=== PATIENT | male | born 1960 | race Two or more races ===

== ENCOUNTER 2017-03-15 13:34 | Observation (INO) | payer OTHER ==
[2017-03-15 13:56] VITALS: BMI 25.7
--- NOTE | 2017-03-15 13:56 | PDOC ---
Attending Attestation - Resident Resident Name: CullenToy vicente - HPI HPI: 03/16/17 09:58 Pt presents to the ED complaining of chest pain after doing cocaine. THe chest pain has been persistent for three weeks but was worse today. - Physicial Exam PE: 03/16/17 09:59 Patient has slow speech secondary to Parkinson's disease. Otherwise exam is normal. - Medical Decision Making 03/16/17 10:00 Pt presents to the ED complaining of cocaine chest pain. Multiple risk factors for cardiac disease. EKG and initial labs within normal limits. Will admit to medicine for rule out ACS.
--- NOTE | 2017-03-15 14:33 | PDOC ---
History of Present Illness - General Chief Complaint: Chest Pain Stated Complaint: CHEST PAIN Time Seen by Provider: 03/15/17 13:53 - History of Present Illness Initial Comments: 03/15/17 14:22 Patient is a 56M with a history of cocaine abuse, HLD, and PTSD here today complaining of chest pain. The pain is located under the sternum and does not radiate anywhere. The pain has been intermittent over the past several weeks, with episodes of pain lasting about a minute happening about 2-3 times per week. The pain is not worse with activity or worse with rest. The pain is not brought on by activity. He endorses diaphoresis with the chest pain. He endorses shortness of breath and headache, but these are unchanged from his baseline. He denies nausea, vomiting, fevers and chills. He says the last time he used cocaine was last night and has been using cocaine everyday for the past two weeks. He says that his mom and dad both had heart disease at a young age. Past History - Past Medical History Allergies/Adverse Reactions: Allergies Allergy/AdvReac Type Severity Reaction Status Date / Time No Known Allergies Allergy Verified 08/30/16 13:25 Home Medications: Ambulatory Orders Docusate Sodium [Colace -] 100 mg PO BID 09/09/14 Omeprazole [Prilosec (RX)] 20 mg PO DAILY 09/09/14 Simvastatin [Zocor -] 40 mg PO HS 09/09/14 Carbidopa/Levodopa [Carbidopa-Levo 10-100 mg Odt] 2 each PO TID 11/19/14 Paroxetine HCl [Paxil] 20 mg PO DAILY 11/19/14 Oxycodone HCl/Acetaminophen [Percocet 5-325 mg Tablet] 1 - 2 tab PO Q6H PRN #12 tab 06/14/15 Oxycodone HCl/Acetaminophen [Percocet 5-325 mg Tablet -] 1 combo PO Q6H PRN #10 tablet 08/06/15 Oxycodone HCl/Acetaminophen [Percocet 5-325 mg Tablet -] 1 - 2 tab PO Q4H PRN # 10 tablet MDD 4 08/30/16 Disorders: Yes (RENAL STONES) Hypercholesterolemia: Yes Psychiatric Problems: Yes (DEPRESSION,PTSD, ANXIETY.) Suicide Attempt (Hx): No - Immunization History Td Vaccination: Yes TDAP Vaccination: Yes Immunization Up to Date: Yes - Psycho/Social/Smoking Cessation Hx Anxiety: Yes Suicidal Ideation: No Smoking History: Never smoked Have you smoked in the past 12 months: Yes Number of Cigarettes Smoked Daily: 5 If you are a former smoker, when did you quit?: 4 YRS AGO Information on smoking cessation initiated: No Hx Alcohol Use: No Drug/Substance Use Hx: No Substance Use Type: None Hx Substance Use Treatment: No *Physical Exam - Vital Signs Last Vital Signs Temp Pulse Resp BP Pulse Ox 98.4 F 73 22 127/87 99 03/15/17 13:46 03/15/17 13:46 03/15/17 13:46 03/15/17 13:46 03/15/17 13:46 - Physical Exam Comments: 03/15/17 17:45 Gen: Well nourished, no acute distress CV: RRR, no murmurs rubs or gallops Lungs: Clear to auscultation bilaterally, normal work of breathing Abd: Soft, nontender, normal bowel sounds Ext: 2+ pulses in both lower extremities Neuro: Finger-roll tremor at rest, mask like face, alert, oriented Heart Score/ECG Review - History History: Moderately suspicious - Electrocardiogram EKG: Normal - Age Age: 45-65 - Risk Factors Risk Factors Heart Score: Yes Hx Hypercholesterolemia, Yes Positive family hx of cardiac disease Based on the list above the patient has:: 1-2 risk factors - Troponin Troponin: </= normal limit - Score Heart Score - Total: 3 #1 ECG reviewed & interpreted by me at: 14:39 03/15/17 14:39 Normal sinus rhythm, normal axis, no ST changes, no t wave inversions, regular ED Treatment Course - LABORATORY CBC & Chemistry Diagram: 03/15/17 15:50 03/15/17 15:50 - ADDITIONAL ORDERS Additional order review: Laboratory Results 03/15/17 03/15/17 15:50 15:50 INR 1.12 Sodium 142 Potassium 3.9 Chloride 105 Carbon Dioxide 29 Anion Gap 8 BUN 16 D Creatinine 1.1 Creat Clearance w eGFR > 60 Random Glucose 94 Calcium 9.2 Total Bilirubin 0.8 D AST 13 L D ALT 23 D Alkaline Phosphatase 135 H D Creatine Kinase 99 Troponin I < 0.02 Total Protein 6.8 Albumin 4.1 03/15/17 15:50 RBC 5.03 MCV 94.8 MCHC 33.3 RDW 13.3 MPV 9.0 Neutrophils % 62.0 Lymphocytes % 25.4 Monocytes % 9.2 Eosinophils % 2.5 D Basophils % 0.9 - RADIOLOGY Radiology Studies Ordered: Category Date Time Status CHEST X-RAY PORTABLE* [RAD] Stat Radiology 03/15/17 14:18 Completed Medical Decision Making - Medical Decision Making 03/15/17 14:40 Patient is a 56M with history of HLD, cocaine abuse, and parkinsons here today complaining of chest pain. Vital signs are normal and stable. Differential includes but is not limited to: unstable angina, ACS, pneumothorax and coronary vasospasm. Story is moderately concerning for heart etiology, age 45-65, and greater than 3 risk factors. Will likely to admit to observation tele. CXR, CMP , CBC, and Troponin ordered. 03/15/17 17:48 Workup negative, medicine consulted for placement into observation. *DC/Admit/Observation/Transfer Diagnosis at time of Disposition: Chest pain Qualifiers: Chest pain type: unspecified Qualified Code(s): R07.9 - Chest pain, unspecified - Discharge Dispostion Condition at time of disposition: Stable Admit: Yes Decision to Admit order Date/Time: Decision to Admit Order Category Date Time Status Decision to Admit to Hospital Routine Admission 03/15/17 17:50 Active - Transfer to Acute Care Facility Accepting Physician:: Elder - Attestations Physician Attestion: 03/15/17 17:49 I, Dr. Toy Huerta, attest that this document has been prepared under my direction and personally reviewed by me in its entirety. I further attest, that it accurately reflects all work, treatment, procedures and medical decision -making performed by me.
[2017-03-15 16:21] LABS: BASOPHIL 0.9 % (0-2.0); EOSINOPHIL 2.5 % (0-4.5); MCH 31.6 pg (25.7-33.7); MCHC 33.3 g/dl (32.0-35.9); MEAN CELL VOLUME 94.8 fl (80-96); PLATELET COUNT 169 K/MM3 (134-434); RDW 13.3 % (11.9-15.9); WHITE BLOOD COUNT 6.4 K/mm3 (4.0-10.0)
[2017-03-15 16:39] LABS: INR 1.12 (0.82-1.09); PROTHROMBIN TIME (PATIENT) 12.4 SEC (9.98-11.88)
[2017-03-15 16:48] LABS: ALBUMIN 4.1 g/dl (3.4-5.0); ANION GAP 8 (8-16); CALCIUM 9.2 mg/dL (8.5-10.1); CO2 29 mmol/L (21-32); CREATININE 1.1 mg/dL (0.7-1.3); GLUCOSE,RANDOM 94 mg/dL (74-106); SGOT/AST 13 U/L (15-37); SGPT/ALT 23 U/L (12-78)
[2017-03-15 16:53] LABS: ALK PHOS 135 U/L (45-117); BILIRUBIN,TOTAL 0.8 mg/dL (0.2-1.0); TOT PROT 6.8 g/dl (6.4-8.2); TROPONIN I < 0.02 ng/ml (0.00-0.05)
--- NOTE | 2017-03-15 18:03 | HP ---
CHIEF COMPLAINT: " my chest hurts" PCP: clinic at [facility] HISTORY OF PRESENT ILLNESS: This is a 56 yo M with PMH of daily crack use (2 gm), parkinsons, HLD, and PTSD , who presents due to chest pain. The pain has been on/off for the past 2 w, lasting 2 min at a time, midsternal, nonradiating, sharp and constant. It has not alleviating or aggravating factors, is not affected by respiration or position change and nonreproducible. He had pain like this one before 2 yrs go. He reports sob with exertion, palpitations and RLE edema but denies cough, f /c, hemoptysis. He reports occasional nausea and a 100 lb weight loss over the past yr associated with increased crack use. He has been smoking crack every day for the past 2 weeks. He reports occasional constipation but denies abd pain , diarrhea, melena, hematochezia, dysuria, weakness, numbness. He reports desire to be admitted to rehab. During ED inspection, chest pain is gone Past History ER course was notable for: (1)labs (2)ekg: negative for ACS or strain (3)CXR unremarkable Recent Travel: denies PAST MEDICAL HISTORY: as above PAST SURGICAL HISTORY: as above Social History: lives at home with Smoking:daily 7 cig/day x 7 yrs Alcohol:denies Drugs: crack daily Family History: mother, father CAD Allergies No Known Allergies Allergy (Verified 08/30/16 13:25) HOME MEDICATIONS: Home Medications Medication Instructions Recorded Docusate Sodium [Colace -] 100 mg PO BID 09/09/14 Omeprazole [Prilosec (RX)] 20 mg PO DAILY 09/09/14 Simvastatin [Zocor -] 40 mg PO HS 09/09/14 Carbidopa/Levodopa [Carbidopa-Levo 2 each PO TID 11/19/14 10-100 mg Odt] Paroxetine HCl [Paxil] 20 mg PO DAILY 11/19/14 Oxycodone HCl/Acetaminophen 1 - 2 tab PO Q6H PRN #12 tab 06/14/15 [Percocet 5-325 mg Tablet] Oxycodone HCl/Acetaminophen 1 combo PO Q6H PRN #10 tablet 08/06/15 [Percocet 5-325 mg Tablet -] Oxycodone HCl/Acetaminophen 1 - 2 tab PO Q4H PRN #10 tablet 08/30/16 [Percocet 5-325 mg Tablet -] MDD 4 REVIEW OF SYSTEMS CONSTITUTIONAL: Absent: fever, chills, HEENT: Absent: rhinorrhea, nasal congestion, throat pain, difficulty swallowing CARDIOVASCULAR: Absent: syncope RESPIRATORY: Absent: cough, shortness of breath, dyspnea with exertion, orthopnea, wheezing, stridor, hemoptysis GASTROINTESTINAL: Absent: abdominal pain, abdominal distension, nausea, vomiting, diarrhea, constipation, melena, hematochezia GENITOURINARY: Absent: dysuria MUSCULOSKELETAL: Absent: back pain, neck pain SKIN: Absent: rash, itching, pallor HEMATOLOGIC/IMMUNOLOGIC: Absent: easy bleeding, easy bruising, frequent infections ENDOCRINE: Absent: unexplained weight gain, unexplained weight loss, heat intolerance, cold intolerance NEUROLOGIC: Absent: headache, focal weakness or paresthesias PSYCHIATRIC: Absent: SI/HI PHYSICAL EXAMINATION Vital Signs - 24 hr 03/15/17 13:46 Temperature 98.4 F Pulse Rate 73 Respiratory 22 Rate Blood Pressure 127/87 O2 Sat by Pulse 99 Oximetry (%) GENERAL: Awake, alert, and fully oriented, in no acute distress. HEAD: Normal with no signs of trauma. EYES: Pupils equal, round and reactive to light, extraocular movements intact, sclera anicteric, conjunctiva clear. No lid lag. EARS, NOSE, THROAT: Ears normal, nares patent, oropharynx clear without exudates. Moist mucous membranes. NECK: supple without JVD. LUNGS: bibasilar crackles HEART: Regular rate and rhythm, normal S1 and S2, grade 2 systolic murmur in mitral area ABDOMEN: Soft, nontender, not distended, normoactive bowel sounds, no guarding, no rebound, no masses. No hepatomegaly or splenomegaly. MUSCULOSKELETAL: No CVA tenderness. UPPER EXTREMITIES: 2+ pulses, warm, well-perfused. No cyanosis. No clubbing. No peripheral edema. LOWER EXTREMITIES: 1+ pulses, warm, well-perfused. No calf tenderness. SUMANTH edema at ankles, nonpitting, mild NEUROLOGICAL: Cranial nerves II-XII intact. slurred speech. 5/5 strength in all extremities, sensation intact, diffuse rigidity and cobwheeling in hands PSYCHIATRIC: Cooperative. Good eye contact. Appropriate mood and affect. SKIN: Warm, dry Laboratory Results - last 24 hr 03/15/17 03/15/17 03/15/17 15:50 15:50 15:50 WBC 6.4 RBC 5.03 Hgb 15.9 Hct 47.7 MCV 94.8 MCH 31.6 MCHC 33.3 RDW 13.3 Plt Count 169 MPV 9.0 Neutrophils % 62.0 Lymphocytes % 25.4 Monocytes % 9.2 Eosinophils % 2.5 D Basophils % 0.9 INR 1.12 Sodium 142 Potassium 3.9 Chloride 105 Carbon Dioxide 29 Anion Gap 8 BUN 16 D Creatinine 1.1 Creat Clearance w eGFR > 60 Random Glucose 94 Calcium 9.2 Total Bilirubin 0.8 D AST 13 L D ALT 23 D Alkaline Phosphatase 135 H D Creatine Kinase 99 Troponin I < 0.02 Total Protein 6.8 Albumin 4.1 ASSESSMENT/PLAN: This is a 56 yo M with PMH of daily crack use (2 gm), parkinsons, HLD, and PTSD , who presents due to chest pain. The pain has been on/off for the past 2 w, lasting 2 min at a time, midsternal, nonradiating, sharp and constant. Chest pain -likely printzmetal angina in setting of crack use -r/o cad -trop negative, repeat -EKG unremarkable for acs or strain -start daily asa -give lipitor 80 once -tele monitoring -IVF hydration -Cardio consult -TTE -tfts, lipid profile, a1c HLD -lipitir 20 hs Parkinsons -carbidopa/levodopa CHronic back pain -oxicodone, tylenol FEN IVF lytes stable Na controlled diet scd, ppi Dispo: obs tele Problem List - Problem (1) Chest pain Code(s): R07.9 - CHEST PAIN, UNSPECIFIED Qualifiers: Chest pain type: unspecified Qualified Code(s): R07.9 - Chest pain, unspecified (2) Chronic lower back pain Code(s): M54.5 - LOW BACK PAIN G89.29 - OTHER CHRONIC PAIN Qualifiers: Back pain laterality: unspecified Sciatica presence: with sciatica Sciatica laterality: bilateral sciatica Qualified Code(s): M54.41 - Lumbago with sciatica, right side; G89.29 - Other chronic pain (3) Chronic pain Code(s): G89.29 - OTHER CHRONIC PAIN Qualifiers: Chronic pain type: other chronic pain Qualified Code(s): G89.29 - Other chronic pain (4) Parkinson disease Code(s): G20 - PARKINSON'S DISEASE (5) Crack cocaine use Code(s): F14.90 - COCAINE USE, UNSPECIFIED, UNCOMPLICATED (6) PTSD (post-traumatic stress disorder) Code(s): F43.10 - POST-TRAUMATIC STRESS DISORDER, UNSPECIFIED Visit type - Emergency Visit Emergency Visit: Yes Care time: The patient presented to the Emergency Department on the above date and was hospitalized for further evaluation of their emergent condition. - New Patient This patient is new to me today: Yes Date on this admission: 03/15/17 - Critical Care Critical Care patient: No
[2017-03-15] MEDS: SODIUM CHLORIDE 1,000 ML IV SCH (18:16)
--- NOTE | 2017-03-15 18:31 | PN ---
Teaching Attending Note Name of Resident: Gita Jimenez ATTENDING PHYSICIAN STATEMENT I saw and evaluated the patient. I reviewed the resident's note and discussed the case with the resident. I agree with the resident's findings and plan as documented. SUBJECTIVE: chest pain x 1 day 56 year old male c/o mid sternal chest pain that started 2 days ago. Mid sternal , constant , non radiating , 5/10 that progressed to 8/10 today . No dizziness no syncope no orthopnea. Reported cocaine use , approximately 2 grams this am . PMH Parkinsons early onset PTSD HTN Home Medication List Medication Instructions Recorded Confirmed Type Docusate Sodium [Colace -] 100 mg PO BID 09/09/14 03/15/17 History Omeprazole [Prilosec (RX)] 20 mg PO DAILY 09/09/14 03/15/17 History Simvastatin [Zocor -] 40 mg PO HS 09/09/14 03/15/17 History Carbidopa/Levodopa [Carbidopa-Levo 2 each PO TID 11/19/14 03/15/17 History 10-100 mg Odt] Paroxetine HCl [Paxil] 20 mg PO DAILY 11/19/14 03/15/17 History Active Medications Generic Name Dose Route Start Last Admin Trade Name Freq PRN Reason Stop Dose Admin Sodium Chloride 1,000 mls @ 83 mls/hr 03/15/17 18:15 03/15/17 18:16 Normal Saline - IV 83 mls/hr ASDIR ABISAI Administration OBJECTIVE: Vital Signs Temperature 99.2 F 03/15/17 18:24 Pulse Rate 76 03/15/17 18:24 Respiratory Rate 22 03/15/17 18:24 Blood Pressure 113/62 03/15/17 18:24 O2 Sat by Pulse Oximetry (%) 98 03/15/17 18:24 HEENT -perrla dry mucous membranes CV: RRR, no murmurs rubs or gallops Lungs: Clear to auscultation bilaterally, normal work of breathing Abd: Soft, nontender, normal bowel sounds Ext: 2+ pulses in both lower extremities, trace pedal edema Neuro: soft speech , impaired voice muscle rigidity and mild tremor CBC, BMP 03/15/17 15:50 03/15/17 15:50 EKG - NSR , L axis ASSESSMENT AND PLAN: 1. Chest pain , cocaine induced - no acute EKG changes , pain now resolved - troponins x 3 - ASA - no bbl - BP control - hydrate - xanax low dose 2. Parkinsons- early onset - PT/OT eval - continue home meds 3. DVT ppx Lovenox sc 4 . HTN - controlled - c/w home meds
[2017-03-15] MEDS ORDERED: ASPIRIN 81 MG CHEWABLE TABLETS PO ONE (19:00)
[2017-03-15] MEDS ORDERED: ATORVASTATIN CA 80 MG TABLET (FP) PO ONE (19:01)
[2017-03-15] MEDS ORDERED: ATORVASTATIN CA 80 MG TABLET (FP) ONE (19:21)
[2017-03-15] MEDS ORDERED: ASPIRIN 81 MG CHEWABLE TABLETS ONE (19:21)
[2017-03-15 19:58] LABS: URINE MARIJUANA THC NEGATIVE ng/ml (CUTOFF=50)
[2017-03-15] MEDS ORDERED: LEVODOPA PO SCH (22:00)
[2017-03-15] MEDS ORDERED: CARBIDOPA PO SCH (22:00)
[2017-03-15] MEDS ORDERED: [UNRECOGNIZED DRUG - OTHER] PO SCH (22:00)
[2017-03-16] MEDS: DOCUSATE SODIUM 100 MG CAPSULE (FP) PO SCH ×3 (00:49→21:23)
[2017-03-16 06:56] LABS: MCH 32.3 pg (25.7-33.7); MCHC 34.3 g/dl (32.0-35.9); MEAN CELL VOLUME 94.1 fl (80-96); MEAN PLT VOLUME 8.8 fl (7.5-11.1); PLATELET COUNT 148 K/MM3 (134-434); RDW 13.3 % (11.9-15.9); WHITE BLOOD COUNT 4.8 K/mm3 (4.0-10.0)
[2017-03-16 07:23] LABS: ANION GAP 7 (8-16); CALCIUM 8.1 mg/dL (8.5-10.1); CO2 27 mmol/L (21-32); CREATININE 0.9 mg/dL (0.7-1.3); GLUCOSE,RANDOM 96 mg/dL (74-106); MAGNESIUM 1.9 mg/dL (1.8-2.4); PHOSPHOROUS 2.5 mg/dL (2.5-4.9)
[2017-03-16 07:57] LABS: CHOLESTEROL 113 mg/dL (50-200); LDL CHOLESTEROL (ONLY SJRH) 61 mg/dL (5-100)
--- NOTE | 2017-03-16 09:04 | PN ---
Progress Note (short form) - Note Progress Note: Chief Complaint: Events noted, notes reviewed, chest pain syndrome, cocaine abuse History of Present Illness: Seen and examined on telemetry. Full consult dictated - Current Medication List Current Medications Acetaminophen (Tylenol -) 650 mg PO Q4H PRN PRN Reason: FEVER OR PAIN Aspirin (Asa -) 81 mg PO DAILY [facility] Carbidopa/Levodopa (Sinemet *Cr* 25/100 -) 2 combo PO TID [facility] Last Admin: 03/16/17 05:42 Dose: 2 combo Docusate Sodium (Colace -) 100 mg PO BID [facility] Last Admin: 03/16/17 00:49 Dose: 100 mg Sodium Chloride (Normal Saline -) 1,000 mls @ 83 mls/hr IV ASDIR [facility] Last Admin: 03/15/17 18:16 Dose: 83 mls/hr Oxycodone HCl (Roxicodone -) 5 mg PO Q4H PRN PRN Reason: MODERATE PAIN Pantoprazole Sodium (Protonix -) 20 mg PO [facility] Paroxetine HCl (Paxil -) 20 mg PO DAILY [facility] Review of Systems Cardiovascular: As noted above Respiratory: denies: Cough or Sputum Production Gastrointestinal: denies: Nausea, Vomiting, Diarrhea, Constipation or Abdominal Discomfort Musculoskeletal: Parkinson's disease Endocrine: No Symptoms Reported - Objective Vital Signs: Last Vital Signs Temp Pulse Resp BP Pulse Ox 98.5 F 57 L 20 100/61 98 03/16/17 05:22 03/16/17 05:22 03/16/17 05:22 03/16/17 05:22 03/16/17 02:57 Constitutional: No Distress, Calm Neck: Supple Negative JVD No Bruit Cardiovascular: S1 S2 Regular Rate and Rhythm No Murmurs Clicks or Gallops Respiratory: Clear to A&P Bilaterally Gastrointestinal: Soft Benign Normal Bowel Sounds Ext: No Edema Intact Distal Pulses Labs: Troponin, BNP 03/15/17 03/15/17 15:50 19:33 Troponin I < 0.02 < 0.02 CBC, BMP 03/16/17 05:35 03/16/17 05:35 Hepatic Panel Total Bilirubin 0.8 mg/dL (0.2-1.0) D 03/15/17 15:50 AST 13 U/L (15-37) L D 03/15/17 15:50 ALT 23 U/L (12-78) D 03/15/17 15:50 Alkaline Phosphatase 135 U/L (45-117) H D 03/15/17 15:50 Albumin 4.1 g/dl (3.4-5.0) 03/15/17 15:50 INR, PTT INR 1.12 (0.82-1.09) 03/15/17 15:50 Assessment/Plan ASSESSMENT: 1. Chest pain syndrome clinical presentation suggestive of CAD angina pectoris in patient with intermediate to high risk of CAD 2. HTN 3. Hypercholesterolemia 4. Tobbaco abuse 5. Cocaine abuse 6. Parkinson's disease 7. History of BPH 8. History of PTSD PLAN: 1. Continue ASA 2. Add Norvasc with caution, hemodynamics permitting 3. Add Ranexa 4. Add Lipitor therapy 5. Patient was strongly counselled Tobacco abuse and Cocaine abuse cessation 6. Echocardiography for evaluation of LV/RV function and valvular function 7. Pharmacologic MPI study for evaluation of the above noted presentation Clemente Roca MD
[2017-03-16] MEDS: PARoxetine HCL 20 MG TABLET (FP) PO SCH (09:27)
[2017-03-16] MEDS: ASPIRIN 81 MG CHEWABLE TABLETS PO SCH (09:27)
[2017-03-16] MEDS: amLODIPine BESYLATE 2.5 MG TABLET (FP) PO SCH (09:27)
[2017-03-16] MEDS: RANOLAZINE E.R. 500 MG TABLET (FP) PO SCH ×2 (09:27→21:23)
--- NOTE | 2017-03-16 09:33 | PN ---
Physical Exam: SUBJECTIVE: Patient seen and examined. He continues to have chest pain. OBJECTIVE: Vital Signs Period Temp Pulse Resp BP Sys/Fisher Pulse Ox Last 24 Hr 98.5 F-99.2 F 57-76 20-22 100-113/61-73 98-98 GENERAL: The patient is awake, alert, and fully oriented, in no acute distress. NECK: Supple. LUNGS: Breath sounds equal, clear to auscultation bilaterally, no wheezes, no crackles, no accessory muscle use. HEART: Regular rate and rhythm, S1, S2 without murmur, rub or gallop. ABDOMEN: Soft, nontender, nondistended, normoactive bowel sounds, no guarding, no rebound, no hepatosplenomegaly, no masses. EXTREMITIES: 2+ pulses, warm, well-perfused, no edema. Laboratory Results - last 24 hr 03/15/17 03/15/17 03/16/17 19:33 19:33 05:35 WBC 4.8 RBC 4.44 Hgb 14.3 D Hct 41.8 MCV 94.1 MCH 32.3 MCHC 34.3 RDW 13.3 Plt Count 148 MPV 8.8 Sodium Potassium Chloride Carbon Dioxide Anion Gap BUN Creatinine Random Glucose Calcium Phosphorus Magnesium Troponin I < 0.02 Triglycerides Cholesterol Total LDL Cholesterol HDL Cholesterol Opiates Screen Negative Methadone Screen Negative Barbiturate Screen Negative Phencyclidine Screen Negative Ur Amphetamines Screen Negative MDMA (Ecstasy) Screen Negative Benzodiazepines Screen Negative Cocaine Screen Positive U Marijuana (THC) Screen Negative 03/16/17 03/16/17 05:35 05:35 WBC RBC Hgb Hct MCV MCH MCHC RDW Plt Count MPV Sodium 145 Potassium 4.0 Chloride 111 H Carbon Dioxide 27 Anion Gap 7 L BUN 16 Creatinine 0.9 Random Glucose 96 Calcium 8.1 L Phosphorus 2.5 Magnesium 1.9 Troponin I Triglycerides 46 Cancelled Cholesterol 113 Cancelled Total LDL Cholesterol 61 Cancelled HDL Cholesterol 43 Cancelled Opiates Screen Methadone Screen Barbiturate Screen Phencyclidine Screen Ur Amphetamines Screen MDMA (Ecstasy) Screen Benzodiazepines Screen Cocaine Screen U Marijuana (THC) Screen Active Medications Generic Name Dose Route Start Last Admin Trade Name Freq PRN Reason Stop Dose Admin Acetaminophen 650 mg 03/15/17 18:56 Tylenol - PO Q4H PRN FEVER OR PAIN Amlodipine Besylate 2.5 mg 03/16/17 10:00 03/16/17 09:27 Norvasc - PO 2.5 mg DAILY ABISAI Administration Aspirin 81 mg 03/16/17 10:00 03/16/17 09:27 Asa - PO 81 mg DAILY ABISAI Administration Atorvastatin Calcium 20 mg 03/16/17 22:00 Lipitor - PO HS ABISAI Carbidopa/Levodopa 2 combo 03/15/17 22:00 03/16/17 05:42 Sinemet *Cr* 25/100 - PO 2 combo TID ABISAI Administration Docusate Sodium 100 mg 03/15/17 22:00 03/16/17 09:27 Colace - PO 100 mg BID ABISAI Administration Sodium Chloride 1,000 mls @ 83 mls/hr 03/15/17 18:15 03/15/17 18:16 Normal Saline - IV 83 mls/hr ASDIR ABISAI Administration Oxycodone HCl 5 mg 03/15/17 19:20 Roxicodone - PO Q4H PRN MODERATE PAIN Pantoprazole Sodium 20 mg 03/16/17 22:00 Protonix - PO HS ABISAI Paroxetine HCl 20 mg 03/16/17 10:00 03/16/17 09:27 Paxil - PO 20 mg DAILY ABISAI Administration Ranolazine 500 mg 03/16/17 10:00 03/16/17 09:27 Ranexa - PO 500 mg BID ABISAI Administration ASSESSMENT/PLAN: This is a 56-year-old man with a history of Parkinson's, hyperlipidemia, PTSD, chronic back pain, crack use who presented to the ER with chest pain. 1. Chest pain - Troponin negative x 2 - Continue telemetry monitoring - Continue aspirin, Lipitor - Not on beta-maki secondary to bradycardia and crack use - Cardiology consult appreciated - Norvasc, Ranexa added - Echocardiogram, stress test 2. Hyperlipidemia - Continue Lipitor 3. Parkinson disease - Continue Sinemet 4. Chronic back pain - Continue oxycodone as needed 5. Nicotine dependence 6. Cocaine abuse Visit type - Emergency Visit Emergency Visit: Yes ED Registration Date: 03/15/17 Care time: The patient presented to the Emergency Department on the above date and was hospitalized for further evaluation of their emergent condition. - New Patient This patient is new to me today: Yes Date on this admission: 03/16/17 - Critical Care Critical Care patient: No - Discharge Referral Referred to [facility] No
[2017-03-16] MEDS ORDERED: PATIENT'S OWN MEDICATION (NON-FORMULARY) (Omeprazole Pediatric Solution 20 MG) PO SCH (10:00)
[2017-03-16 10:42] LABS: THYROID STIMULATING HORMONE 0.23 uIU/ml (0.358-3.74)
[2017-03-16] MEDS: ACETAMINOPHEN 325 MG TABLET (FP) PO PRN ×2 (14:25→23:24)
[2017-03-16] MEDS: oxyCODONE HCL 5 MG TABLET PO PRN ×2 (14:25→23:24)
[2017-03-16] MEDS: SODIUM CHLORIDE 1,000 ML IV SCH (21:22)
[2017-03-16] MEDS: ATORVASTATIN CA 20 MG TABLET (FP) PO SCH (21:23)
[2017-03-16] MEDS: PANTOPRAZOLE 20 MG TABLET (FP) PO SCH (21:23)
[2017-03-17] MEDS: SODIUM CHLORIDE 1,000 ML IV SCH ×2 (03:16→15:26)
[2017-03-17] MEDS: oxyCODONE HCL 5 MG TABLET PO PRN ×3 (06:15→21:26)
[2017-03-17] MEDS: ACETAMINOPHEN 325 MG TABLET (FP) PO PRN ×2 (06:15→11:15)
[2017-03-17 07:12] LABS: BASOPHIL 0.8 % (0-2.0); EOSINOPHIL 3.1 % (0-4.5); MCH 32.3 pg (25.7-33.7); MCHC 34.3 g/dl (32.0-35.9); MEAN CELL VOLUME 94.2 fl (80-96); NEUTROPHILS 58.7 % (42.8-82.8); PLATELET COUNT 150 K/MM3 (134-434); RDW 13.5 % (11.9-15.9); WHITE BLOOD COUNT 5.9 K/mm3 (4.0-10.0)
[2017-03-17 07:30] LABS: ANION GAP 7 (8-16); CALCIUM 8.8 mg/dL (8.5-10.1); CO2 27 mmol/L (21-32); CREATININE 0.9 mg/dL (0.7-1.3); GLUCOSE,RANDOM 85 mg/dL (74-106)
--- NOTE | 2017-03-17 07:53 | PN ---
Progress Note (short form) - Note Progress Note: Chief Complaint: Events noted, notes reviewed, denies any further chest pain, denies any dyspnea History of Present Illness: Seen and examined on telemetry. Events noted, notes reviewed, denies any further chest pain, denies any dyspnea Tolerating therapy Plan to proceed with echocardiography and pharmacologic MPI study in AM for further evaluation - Current Medication List Current Medications Acetaminophen (Tylenol -) 650 mg PO Q4H PRN PRN Reason: FEVER OR PAIN Last Admin: 03/17/17 06:15 Dose: 650 mg Amlodipine Besylate (Norvasc -) 2.5 mg PO DAILY [facility] Last Admin: 03/16/17 09:27 Dose: 2.5 mg Aspirin (Asa -) 81 mg PO DAILY [facility] Last Admin: 03/16/17 09:27 Dose: 81 mg Atorvastatin Calcium (Lipitor -) 20 mg PO [facility] Last Admin: 03/16/17 21:23 Dose: 20 mg Carbidopa/Levodopa (Sinemet *Cr* 25/100 -) 2 combo PO TID [facility] Last Admin: 03/17/17 05:11 Dose: 2 combo Docusate Sodium (Colace -) 100 mg PO BID [facility] Last Admin: 03/16/17 21:23 Dose: 100 mg Sodium Chloride (Normal Saline -) 1,000 mls @ 83 mls/hr IV ASDIR [facility] Last Admin: 03/17/17 03:16 Dose: 83 mls/hr Oxycodone HCl (Roxicodone -) 5 mg PO Q4H PRN PRN Reason: MODERATE PAIN Last Admin: 03/17/17 06:15 Dose: 5 mg Pantoprazole Sodium (Protonix -) 20 mg PO [facility] Last Admin: 03/16/17 21:23 Dose: 20 mg Paroxetine HCl (Paxil -) 20 mg PO DAILY [facility] Last Admin: 03/16/17 09:27 Dose: 20 mg Ranolazine (Ranexa -) 500 mg PO BID [facility] Last Admin: 03/16/17 21:23 Dose: 500 mg Review of Systems Cardiovascular: As noted above Respiratory: denies: Cough or Sputum Production Gastrointestinal: denies: Nausea, Vomiting, Diarrhea, Constipation or Abdominal Discomfort Musculoskeletal: Parkinson's disease Endocrine: No Symptoms Reported - Objective Vital Signs: Last Vital Signs Temp Pulse Resp BP Pulse Ox 98.4 F 64 18 100/60 98 07/16/17 02:00 03/17/17 02:00 03/17/17 02:00 03/17/17 02:00 03/16/17 19:43 Constitutional: No Distress, Calm Neck: Supple Negative JVD No Bruit Cardiovascular: S1 S2 Regular Rate and Rhythm No Murmurs Clicks or Gallops Respiratory: Clear to A&P Bilaterally Gastrointestinal: Soft Benign Normal Bowel Sounds Ext: No Edema Intact Distal Pulses Labs: CBC, BMP 03/17/17 05:35 Hepatic Panel Total Bilirubin 0.8 mg/dL (0.2-1.0) D 03/15/17 15:50 AST 13 U/L (15-37) L D 03/15/17 15:50 ALT 23 U/L (12-78) D 03/15/17 15:50 Alkaline Phosphatase 135 U/L (45-117) H D 03/15/17 15:50 Albumin 4.1 g/dl (3.4-5.0) 03/15/17 15:50 Assessment/Plan ASSESSMENT: 1. Chest pain syndrome with no evidence of ACS, clinical presentation suggestive of CAD angina pectoris in patient with intermediate to high risk of CAD, to be evaluated 2. HTN 3. Hypercholesterolemia 4. Tobbaco abuse 5. Cocaine abuse 6. Parkinson's disease 7. History of BPH 8. History of PTSD PLAN: 1. Continue ASA 2. Continue Norvasc with caution, hemodynamics permitting 3. Continue Ranexa 4. Continue Lipitor therapy 5. Patient was strongly counselled Tobacco abuse and Cocaine abuse cessation 6. As outlined above Echocardiography for evaluation of LV/RV function and valvular function 7. As outlined above Pharmacologic MPI study for evaluation of the above noted presentation Clemente Roca MD
--- NOTE | 2017-03-17 09:08 | PN ---
Physical Exam: SUBJECTIVE: Patient seen and examined. He reports left-sided chest pressure overnight but none this morning OBJECTIVE: Vital Signs Period Temp Pulse Resp BP Sys/Fisher Pulse Ox Last 24 Hr 98 F-98.8 F 57-82 16-20 100-133/60-71 94-98 GENERAL: The patient is awake, alert, and fully oriented, in no acute distress. NECK: Supple. LUNGS: Breath sounds equal, clear to auscultation bilaterally, no wheezes, no crackles, no accessory muscle use. HEART: Regular rate and rhythm, S1, S2 without murmur, rub or gallop. ABDOMEN: Soft, nontender, nondistended, normoactive bowel sounds, no guarding, no rebound, no hepatosplenomegaly, no masses. EXTREMITIES: 2+ pulses, warm, well-perfused, no edema. Laboratory Results - last 24 hr 03/16/17 03/16/17 03/17/17 05:35 06:00 05:35 WBC 5.9 RBC 4.62 Hgb 14.9 Hct 43.5 MCV 94.2 MCH 32.3 MCHC 34.3 RDW 13.5 Plt Count 150 MPV 9.0 Neutrophils % 58.7 Lymphocytes % 29.6 Monocytes % 7.8 Eosinophils % 3.1 Basophils % 0.8 Sodium 145 Potassium 4.0 Chloride 111 H Carbon Dioxide 27 Anion Gap 7 L BUN 16 Creatinine 0.9 Random Glucose 96 Hemoglobin A1c % 5.4 Calcium 8.1 L Phosphorus 2.5 Magnesium 1.9 Triglycerides 46 Cholesterol 113 Total LDL Cholesterol 61 HDL Cholesterol 43 TSH 0.23 L 03/17/17 05:35 WBC RBC Hgb Hct MCV MCH MCHC RDW Plt Count MPV Neutrophils % Lymphocytes % Monocytes % Eosinophils % Basophils % Sodium 142 Potassium 3.9 Chloride 108 H Carbon Dioxide 27 Anion Gap 7 L BUN 14 Creatinine 0.9 Random Glucose 85 Hemoglobin A1c % Calcium 8.8 Phosphorus Magnesium Triglycerides Cholesterol Total LDL Cholesterol HDL Cholesterol TSH Active Medications Generic Name Dose Route Start Last Admin Trade Name Freq PRN Reason Stop Dose Admin Acetaminophen 650 mg 03/15/17 18:56 03/17/17 06:15 Tylenol - PO 650 mg Q4H PRN Administration FEVER OR PAIN Amlodipine Besylate 2.5 mg 03/16/17 10:00 03/16/17 09:27 Norvasc - PO 2.5 mg DAILY AB[facility] Administration Aspirin 81 mg 03/16/17 10:00 03/16/17 09:27 Asa - PO 81 mg DAILY [facility] Administration Atorvastatin Calcium 20 mg 03/16/17 22:00 03/16/17 21:23 Lipitor - PO 20 mg HS [facility] Administration Carbidopa/Levodopa 2 combo 03/15/17 22:00 03/17/17 05:11 Sinemet *Cr* 25/100 - PO 2 combo TID AB[facility]I Administration Docusate Sodium 100 mg 03/15/17 22:00 03/16/17 21:23 Colace - PO 100 mg BID [facility] Administration Sodium Chloride 1,000 mls @ 83 mls/hr 03/15/17 18:15 03/17/17 03:16 Normal Saline - IV 83 mls/hr ASDIR [facility] Administration Oxycodone HCl 5 mg 03/15/17 19:20 03/17/17 06:15 Roxicodone - PO 5 mg Q4H PRN Administration MODERATE PAIN Pantoprazole Sodium 20 mg 03/16/17 22:00 03/16/17 21:23 Protonix - PO 20 mg HS [facility] Administration Paroxetine HCl 20 mg 03/16/17 10:00 03/16/17 09:27 Paxil - PO 20 mg DAILY [facility] Administration Ranolazine 500 mg 03/16/17 10:00 03/16/17 21:23 Ranexa - PO 500 mg BID [facility] Administration ASSESSMENT/PLAN: This is a 56-year-old man with a history of Parkinson's, hyperlipidemia, PTSD, chronic back pain, crack use who presented to the ER with chest pain. 1. Chest pain, possibly secondary to CAD - Continue aspirin, Lipitor, Norvasc, Ranexa - Not on beta-maki secondary to bradycardia and crack use - Cardiology consult appreciated - Norvasc, Ranexa added - Plan for echocardiogram, persantine stress test tomorrow 2. Hyperlipidemia - Continue Lipitor 3. Parkinson disease - Continue Sinemet 4. Chronic back pain - Continue oxycodone as needed 5. Nicotine dependence 6. Cocaine abuse Visit type - Emergency Visit Emergency Visit: Yes ED Registration Date: 03/15/17 Care time: The patient presented to the Emergency Department on the above date and was hospitalized for further evaluation of their emergent condition. - New Patient This patient is new to me today: No - Critical Care Critical Care patient: No - Discharge Referral Referred to [facility] No
[2017-03-17] MEDS: DOCUSATE SODIUM 100 MG CAPSULE (FP) PO SCH ×2 (10:55→21:26)
[2017-03-17] MEDS: ASPIRIN 81 MG CHEWABLE TABLETS PO SCH (10:55)
[2017-03-17] MEDS: RANOLAZINE E.R. 500 MG TABLET (FP) PO SCH ×2 (10:56→21:22)
[2017-03-17] MEDS: amLODIPine BESYLATE 2.5 MG TABLET (FP) PO SCH (10:56)
[2017-03-17] MEDS: TAMSULOSIN HCL 0.4 MG CAP.ER.24H (FP) PO SCH (10:56)
[2017-03-17] MEDS: PARoxetine HCL 20 MG TABLET (FP) PO SCH (10:56)
--- NOTE | 2017-03-17 12:37 | CONSULT ---
Consult Detox [facility] Reason for Current Admission/Consult: crack/cocaine abuse - History History of Present Illness: 56 y/o m pt with h/o parkinsons, hyperlipidemia ,ptsd, cig.smoker,actively using crack -2gms/d; presented to ED with c/o chest pain associated with sob . Pt reports chest over several days . - History Source History Provided By: Patient Limitations to Obtaining History: No Limitations - Alcohol/Substance Use Hx Alcohol Use: No Hx Substance Use: Yes (cocaine/ crack 2gms /d ) Hx Substance Use Treatment: Yes (st, [facility] [place] x 2 ) - Current Drug/Alcohol Use Crack Route: Smoking Frequency: Daily Amount used: 2gms/d Age of first use: 24 Date of Last Use: 03/15/17 - Past Medical History [employer]: Yes: Parkinson's Cardio/Vascular: Yes: Hyperlipdemia Renal/: Yes: Renal Calculi Psych: Yes: Other (ptsd) - Significant Medical Findings: 56 y/o m pt appearing stated age sitting up in bed in [facility], responding to questions aox3. + tremors + finger roll Assessment Plan - Diagnosis (1) Chest pain Status: Acute Qualifiers: Chest pain type: unspecified Qualified Code(s): R07.9 - Chest pain, unspecified (2) Crack cocaine use Status: Chronic (3) PTSD (post-traumatic stress disorder) Status: Chronic (4) Parkinson disease Status: Chronic (5) Chronic lower back pain Status: Chronic Qualifiers: Back pain laterality: unspecified Qualified Code(s): M54.41 - Lumbago with sciatica, right side; G89.29 - Other chronic pain (6) Nicotine dependence Status: Chronic Qualifiers: Nicotine product type: cigarettes Substance use status: uncomplicated Qualified Code(s): F17.210 - Nicotine dependence, cigarettes, uncomplicated - Plan Plan: Detox not indicated for chronic crack abuse but rehab was strongly encouraged . This pt was counseled on danger of using crack given risk factors for cad and parkinsons Pt is amenable to starting rehab for crack abuse at [facility] once he is d/c'ed from [facility]. . - Medication Detox Regimen/Protocol: Not Applicable
--- NOTE | 2017-03-17 13:37 | EKG ---
Test Reason : Blood Pressure : / mmHG Vent. Rate : 075 BPM Atrial Rate : 075 BPM P-R Int : 162 ms QRS Dur : 100 ms QT Int : 390 ms P-R-T Axes : 047 -03 033 degrees QTc Int : 435 ms NORMAL SINUS RHYTHM NORMAL ECG NO PREVIOUS ECGS AVAILABLE Confirmed by PA REEVES MD ([id number]) on 03/17/2017 1:37:45 PM Referred By: Confirmed By:PA REEVES MD
[2017-03-17] MEDS: ATORVASTATIN CA 20 MG TABLET (FP) PO SCH (21:22)
[2017-03-17] MEDS: PANTOPRAZOLE 20 MG TABLET (FP) PO SCH (21:23)
[2017-03-18] MEDS: SODIUM CHLORIDE 1,000 ML IV SCH (03:30)
[2017-03-18] MEDS: TAMSULOSIN HCL 0.4 MG CAP.ER.24H (FP) PO SCH (08:30)
[2017-03-18] MEDS: oxyCODONE HCL 5 MG TABLET PO PRN (08:53)
[2017-03-18] MEDS: ACETAMINOPHEN 325 MG TABLET (FP) PO PRN (08:57)
[2017-03-18] MEDS ORDERED: WATER IVPB ONE (10:00)
[2017-03-18] MEDS ORDERED: DEXTROSE 5% IVPB ONE (10:00)
[2017-03-18] MEDS ORDERED: DIPYRIDAMOLE STRESS TEST IVPB ONE (10:00)
--- NOTE | 2017-03-18 11:33 | CONS ---
DATE OF CONSULTATION: 03/16/2017 REQUESTING PHYSICIAN: Hospitalist. CHIEF COMPLAINT: Chest pain. History was obtained from the patient and his who was at the bedside. A 56-year-old male of descent, with known history of hypertensive cardiovascular disease, hypercholesterolemia, Parkinson disease, benign prostatic hypertrophy, and post-traumatic stress disorder, who denied diabetes mellitus, who presented to [facility] with chest discomfort which has been noted for the last 2 days, exacerbated by cocaine abuse. Patient stated that he has been reporting intermittent episodes of retrosternal chest discomfort described as heaviness which was noted for 2 days prior to current hospitalization, and subsequently, he admits cocaine abuse; following which, symptoms worsened. Patient denied any associated diaphoresis. Patient did not report any history of dyspnea, orthopnea, paroxysmal nocturnal dyspnea, or peripheral edema. Patient denied any palpitations, dizziness, lightheadedness, or syncope. Patient has been reporting fatigue and tiredness. Patient has been reporting difficulty in ambulation related to the above-noted Parkinson disease. PAST MEDICAL HISTORY: Hypertensive cardiovascular disease, hypercholesterolemia, Parkinson disease, benign prostatic hypertrophy, and post-traumatic stress disorder. PAST SURGICAL HISTORY: None. SOCIAL HISTORY: A smoker. Cocaine abuse. Admits to social alcohol intake. FAMILY HISTORY: Positive for coronary artery disease. ALLERGIES: None reported. MEDICAL THERAPY AT HOME: Included Sinemet 2 tablets 3 times a day, Colace 100 mg twice a day, Paxil 20 mg once a day, Prilosec 20 mg once a day for gastroesophageal reflux disease, Zocor 40 mg once a day, oxycodone/acetaminophen 1 tablet every 6 hours as needed. REVIEW OF SYSTEMS: Head and Neck: Denies headache, photophobia, blurring of vision. Respiratory: No cough or sputum production. Cardiovascular: As noted above. Gastrointestinal: History of gastroesophageal reflux disease. Genitourinary: History of benign prostatic hypertrophy. Musculoskeletal: History of Parkinson disease. PHYSICAL EXAMINATION: Vital Signs: Blood pressure is 100/61 mmHg. Pulse rate is 57 beats per minute. Head and Neck: Pupils equal and reactive to light and accommodation. Extraocular muscles are intact. Anicteric sclerae. Negative JVD. No bruit appreciated. Chest: Clear to auscultation and percussion. Cardiovascular: S1 and S2 regular. No murmurs, clicks, or gallops. Abdomen: Soft, benign. Normoactive bowel sounds. Extremities: Negative edema. Intact distal pulses. No calf tenderness. Electrocardiogram reveals sinus rhythm with a minor intraventricular conduction delay and nonspecific T-wave abnormality. Chest x-ray report was noted. CBC revealed white cell count 4.8, hemoglobin 14.3, platelet count 148. INR 1.12. Basic metabolic profile revealed sodium 142, potassium 4.0, BUN was 16, creatinine 0.9, glucose 96. Cholesterol 113, LDL 61, triglyceride 46, HDL 43. Toxicology screen was positive for cocaine. ASSESSMENT: 1. Chest pain syndrome. Clinical presentation suggestive of coronary artery disease, angina pectoris in a patient with [id number] risk of coronary artery disease. 2. History of hypertensive cardiovascular disease. 3. Hypercholesterolemia. 4. Tobacco abuse. 5. Cocaine abuse. 6. Parkinson disease. 7. History of benign prostatic hypertrophy. 8. History of post-traumatic stress disorder. RECOMMENDATION: 1. Aspirin therapy. 2. Addition of Norvasc with caution, hemodynamics permitting. 3. Addition of Ranexa. 4. Addition of statin therapy. 5. Echocardiography for evaluation of left ventricular systolic function. 6. Pharmacologic myocardial perfusion imaging study for evaluation of the above-noted clinical presentation. 7. Patient was strongly counseled tobacco-abuse cessation and cocaine-abuse cessation. Thank you for the kind referral. ALEKSANDR OBANDO M.D. [id number]
[2017-03-18] MEDS: DOCUSATE SODIUM 100 MG CAPSULE (FP) PO SCH (12:27)
[2017-03-18] MEDS: amLODIPine BESYLATE 2.5 MG TABLET (FP) PO SCH (12:27)
[2017-03-18] MEDS: ASPIRIN 81 MG CHEWABLE TABLETS PO SCH (12:27)
[2017-03-18] MEDS: RANOLAZINE E.R. 500 MG TABLET (FP) PO SCH (12:28)
[2017-03-18] MEDS: PARoxetine HCL 20 MG TABLET (FP) PO SCH (12:28)
--- NOTE | 2017-03-18 14:28 | PN ---
Progress Note, Physician Chief Complaint: Events noted Not in distress History of Present Illness: Patient was seen and examined. Awake and alert. Chart was reviewed Denies chest pain, SOB or palpitations - Current Medication List Current Medications: Active Medications Acetaminophen (Tylenol -) 650 mg PO Q4H PRN PRN Reason: FEVER OR PAIN Last Admin: 03/18/17 08:57 Dose: 650 mg Amlodipine Besylate (Norvasc -) 2.5 mg PO DAILY [facility] Last Admin: 03/18/17 12:27 Dose: 2.5 mg Aspirin (Asa -) 81 mg PO DAILY [facility] Last Admin: 03/18/17 12:27 Dose: 81 mg Atorvastatin Calcium (Lipitor -) 20 mg PO HS [facility] Last Admin: 03/17/17 21:22 Dose: 20 mg Carbidopa/Levodopa (Sinemet *Cr* 25/100 -) 2 combo PO TID [facility] Last Admin: 03/18/17 05:50 Dose: Not Given Docusate Sodium (Colace -) 100 mg PO BID [facility] Last Admin: 03/18/17 12:27 Dose: 100 mg Sodium Chloride (Normal Saline -) 1,000 mls @ 83 mls/hr IV ASDIR [facility] Last Admin: 03/18/17 03:30 Dose: 83 mls/hr Oxycodone HCl (Roxicodone -) 5 mg PO Q4H PRN PRN Reason: MODERATE PAIN Last Admin: 03/18/17 08:53 Dose: 5 mg Pantoprazole Sodium (Protonix -) 20 mg PO HS [facility] Last Admin: 03/17/17 21:23 Dose: 20 mg Paroxetine HCl (Paxil -) 20 mg PO DAILY [facility] Last Admin: 03/18/17 12:28 Dose: 20 mg Ranolazine (Ranexa -) 500 mg PO BID [facility] Last Admin: 03/18/17 12:28 Dose: 500 mg Tamsulosin HCl (Flomax -) 0.4 mg PO DAILY@0830 [facility] Last Admin: 03/18/17 08:30 Dose: 0.4 mg - Objective Vital Signs: Vital Signs Temperature 97.8 F 03/18/17 10:00 Pulse Rate 63 03/18/17 10:00 Respiratory Rate 18 03/18/17 10:00 Blood Pressure 127/90 03/18/17 10:00 O2 Sat by Pulse Oximetry (%) 97 03/18/17 09:00 Neck: Yes: Supple Cardiovascular: Yes: Regular Rate and Rhythm, S1, S2 Respiratory: Yes: CTA Bilaterally Gastrointestinal: Yes: Normal Bowel Sounds, Soft. No: Tenderness Edema: No Additional Findings/Remarks: Review of Systems Cardiovascular: As noted above Respiratory: denies: Cough or Sputum Production Gastrointestinal: denies: Nausea, Vomiting, Diarrhea, Constipation or Abdominal Discomfort Musculoskeletal: Parkinson's disease Endocrine: No Symptoms Reported Labs: CBC, BMP 03/17/17 05:35 03/17/17 05:35 Problem List - Problems (1) Chest pain Code(s): R07.9 - CHEST PAIN, UNSPECIFIED Qualifiers: Chest pain type: unspecified Qualified Code(s): R07.9 - Chest pain, unspecified (2) Crack cocaine use Code(s): F14.90 - COCAINE USE, UNSPECIFIED, UNCOMPLICATED (3) Nicotine dependence Code(s): F17.200 - NICOTINE DEPENDENCE, UNSPECIFIED, UNCOMPLICATED Qualifiers : Nicotine product type: cigarettes Substance use status: uncomplicated Qualified Code(s): F17.210 - Nicotine dependence, cigarettes, uncomplicated (4) PTSD (post-traumatic stress disorder) Code(s): F43.10 - POST-TRAUMATIC STRESS DISORDER, UNSPECIFIED (5) Parkinson disease Code(s): G20 - PARKINSON'S DISEASE (6) HTN (hypertension) Code(s): I10 - ESSENTIAL (PRIMARY) HYPERTENSION Qualifiers: Hypertension type: essential hypertension Qualified Code(s): I10 - Essential (primary) hypertension (7) Hypercholesterolemia Code(s): E78.00 - PURE HYPERCHOLESTEROLEMIA, UNSPECIFIED Assessment/Plan 1. Chest pain syndrome with no evidence of ACS, clinical presentation suggestive of CAD angina pectoris in patient with intermediate to high risk of CAD 2. HTN 3. Hypercholesterolemia 4. Tobacco abuse 5. Substance abuse - Cocaine 6. Parkinson's disease 7. History of BPH 8. History of PTSD PLAN: 1. Continue ASA 2. Continue Norvasc with caution 3. Continue Ranexa 4. Continue Lipitor therapy 5. Transthoracic echocardiography for evaluation of LV/RV function and valvular function 6. Pharmacologic myocardial perfusion imaging study for evaluation of the above noted presentation Further plans are to follow Ganga Kearney MD
--- NOTE | 2017-03-18 14:29 | PN ---
Teaching Attending Note Name of Resident: Carla Hirsch ATTENDING PHYSICIAN STATEMENT I saw and evaluated the patient. I reviewed the resident's note and discussed the case with the resident. I agree with the resident's findings and plan as documented. SUBJECTIVE: OBJECTIVE: Vital Signs Period Temp Pulse Resp BP Sys/Fisher Pulse Ox Last 24 Hr 97.7 F-99.6 F 61-68 18-21 114-128/65-90 97-97 ASSESSMENT AND PLAN:
[2017-03-18 14:47] VITALS: BP 139/58; PULSE 77; TEMP 98.1
--- NOTE | 2017-03-18 16:19 | DS ---
Physical Exam: SUBJECTIVE: Patient seen and examined at bedside. No acute events overnight. Pt denies any chest pain, shortness of breath, or any other symptoms. OBJECTIVE: Vital Signs Period Temp Pulse Resp BP Sys/Fisher Pulse Ox Last 24 Hr 97.7 F-99.6 F 61-77 18-21 114-139/58-90 97-97 PHYSICAL EXAM GENERAL: The patient is awake, alert, and fully oriented, in no acute distress. HEAD: Normal with no signs of trauma. EYES: PERRL, extraocular movements intact, sclera anicteric, conjunctiva clear. ENT: oropharynx clear without exudates, moist mucous membranes. NECK: Trachea midline, full range of motion, supple. LUNGS: Breath sounds equal, clear to auscultation bilaterally, no wheezes, no crackles, no accessory muscle use. HEART: Regular rate and rhythm, S1, S2 without murmur, rub or gallop. ABDOMEN: Soft, nontender, nondistended, normoactive bowel sounds, no guarding, no rebound EXTREMITIES: 2+ posterior tibial pulses, warm, well-perfused, no edema. NEUROLOGICAL: Cranial nerves II through XII grossly intact. LABS/VITALS TREND Vitals Trend 03/15/17 03/15/17 03/15/17 13:46 17:50 18:24 Temperature 98.4 F 98.2 F 99.2 F Pulse Rate Respiratory 22 22 22 Rate Blood Pressure 127/87 113/79 03/16/17 03/16/17 03/16/17 02:00 02:57 05:22 Temperature 98.5 F 98.5 F Pulse Rate 63 57 L Respiratory 20 20 20 Rate Blood Pressure 113/73 100/61 03/16/17 03/16/17 03/16/17 10:05 14:00 18:00 Temperature 98.1 F 98 F 98.8 F Pulse Rate 66 72 64 Respiratory 18 20 20 Rate Blood Pressure 102/62 107/61 114/71 03/16/17 03/16/17 03/16/17 19:43 22:00 23:00 Temperature 98.7 F 98.1 F Pulse Rate 82 57 L Respiratory 20 18 16 Rate Blood Pressure 133/68 118/64 03/17/17 03/17/17 03/17/17 02:00 09:00 10:00 Temperature 98.4 F 97.9 F Pulse Rate 64 61 Respiratory 18 18 18 Rate Blood Pressure 100/60 124/69 03/17/17 03/17/17 03/17/17 14:00 17:10 21:50 Temperature 98.9 F 99.6 F 97.9 F Pulse Rate 64 68 68 Respiratory 20 21 20 Rate Blood Pressure 119/79 121/69 124/72 03/18/17 03/18/17 03/18/17 02:30 05:22 09:00 Temperature 98.2 F 97.7 F Pulse Rate Respiratory 20 18 18 Rate Blood Pressure 114/65 128/71 03/18/17 03/18/17 10:00 14:00 Temperature 97.8 F 98.1 F Pulse Rate Respiratory 18 20 Rate Blood Pressure 127/90 139/58 Laboratory Tests 03/15/17 03/16/17 03/17/17 15:50 05:35 05:35 BUN 16 D 16 14 Creatinine 1.1 0.9 0.9 AST 13 L D Alkaline Phosphatase 135 H D TSH 0.23 L CXR: no evidence of acute pulmonary disease EKG: normal sinus rhythm, within normal limits Vascular study: no DVT of R leg Myocardial perfusion test: Small zone of inferoapical reversible defect compatible with mild intensity ischemia with underlying diaphragmatic attenuation, regional wall motion abnormality as outlined with calculated LV ejection fraction of 56% HOSPITAL COURSE: Date of Admission:03/15/17 Date of Discharge: 03/18/17 Admit diagnosis: chest pain secondary to cocaine use, r/o ACS Pre-admission course 56 yo M with PMH of daily cocaine use (2 grams), Parkinson's, HLD, and PTSD, who presented to the ED due to chest pain. The pain was intermittent for 2 weeks , and lasting 2 min during each episode- occurring mid-sternally. The pain was nonradiating, sharp and constant. It was not alleviated or aggravated by any factors and was not affected by position changes. It was non reproducible. He had pain like this in the past. Patient also reported shortness of breath with exertion, palpitations and RLE edema but denies cough, f/c, hemoptysis. He also reported occasional nausea and a 100 lb weight loss over the past yr associated with increased cocaine use. He had been smoking cocaine every day for the past 2 weeks. He reported occasional constipation but denies abdominal pain, diarrhea, melena , hematochezia, dysuria, weakness, and numbness. He reported a desire to be admitted to rehab. During ED inspection, chest pain had subsided. ED course was notable for: (1)EKG: negative for ACS or strain (2)CXR: unremarkable Hospital course While on the floor, patient's chest pain was explored, to rule out ACS, most likely induced by his cocaine use. An EKG showed no acute changes and his pain resolved during his admission in the ED. His troponins were also trended during this time, and all three values were negative. He was continued on aspirin 81mg , lipitor 20 mg, norvasc 1.5mg, and Ranexa 500 mg PO BID. Patient also underwent a myocardial perfusion test, which revealed a small zone of inferoapical reversible defect compatible with mild intensity ischemia with underlying diaphragmatic attenuation, regional wall motion abnormality as outlined with calculated LV ejection fraction of 56%. During this time, patient was strongly counseled on tobacco use and cocaine abuse cessation. He was amenable to starting rehab for cocaine abuse at [facility] after discharge. Minutes to complete discharge: 32 Discharge Summary Reason For Visit: CHEST PAIN Current Active Problems Chest pain (Acute) HTN (hypertension) (Acute) Hypercholesterolemia (Acute) Crack cocaine use (Chronic) Nicotine dependence (Chronic) PTSD (post-traumatic stress disorder) (Chronic) Parkinson disease (Chronic) Condition: Stable - Instructions Diet, Activity, Other Instructions: You were recently in the hospital for chest pain. You are being transferred to [facility] for rehab. Please follow up with a aerobics teacher, Dr. Seals, in his office once you are discharged from rehab. Please take your medications as prescribed. You have been started on the following medications: -Lipitor 20mg once daily -Norvasc 2.5mg once daily -Aspirin 81 mg once daily -Ranexa 500mg twice a day If you have any chest pain, shortness of breath, or any new symptoms, please go to the hospital. Referrals: Clemente Roca MD [Staff Physician] - Taz Montes MD [Staff Physician] - Disposition: HOME - Home Medications Comprehensive Discharge Medication List: Ambulatory Orders Docusate Sodium [Colace -] 100 mg PO BID 09/09/14 Omeprazole [Prilosec (RX)] 20 mg PO DAILY 09/09/14 Carbidopa/Levodopa [Carbidopa-Levo 10-100 mg Odt] 2 each PO TID 11/19/14 Paroxetine HCl [Paxil] 20 mg PO DAILY 11/19/14 Tamsulosin HCl [Flomax] 0.4 mg PO DAILY 03/17/17 Amlodipine Besylate [Norvasc -] 2.5 mg PO DAILY #30 tablet 03/18/17 Aspirin [ASA -] 81 mg PO DAILY #30 tab.chew 03/18/17 Atorvastatin Ca [Lipitor] 20 mg PO HS #30 tablet 03/18/17 Ranolazine [Ranexa -] 500 mg PO BID #60 tab 03/18/17 This patient is new to me today: No Emergency Visit: No Critical Care patient: No - Discharge Referral Referred to [facility] No
== END 2017-03-18 16:53 | disposition home or self-care (01) ==
LOC: JER 13:34 → JERBED 17:50 → J4W 22:50
PROVIDERS: ADMIT Internal Medicine; ATTEND Internal Medicine
PROC: 3E033GC Introduction of Other Therapeutic Substance into Peripheral Vein, Percutaneous Approach (ICD-10-PCS; principal; 2017-03-15)
PROC: 3E0337Z Introduction of Electrolytic and Water Balance Substance into Peripheral Vein, Percutaneous Approach (ICD-10-PCS; 2017-03-15)
DX: R07.9 Chest pain, unspecified (principal); I10 Essential (primary) hypertension; E78.5 Hyperlipidemia, unspecified; F14.90 Cocaine use, unspecified, uncomplicated; F43.10 Post-traumatic stress disorder, unspecified; F41.9 Anxiety disorder, unspecified; F32.9 Major depressive disorder, single episode, unspecified; F17.210 Nicotine dependence, cigarettes, uncomplicated; M54.41 Lumbago with sciatica, right side; G89.29 Other chronic pain; G20 Parkinson's disease; Z79.82 Long term (current) use of aspirin
CPT/HCPCS: 36415; 71010-TC; 78452-TC; 80048; 80053; 80061; 80307; 82550; 83036; 83721; 83735; 84100; 84443; 84484; 85025; 85027; 85610; 93005; 93010; 93017; 93306-TC; 93971-TC; 99284-25; A9502; G0378

== ENCOUNTER 2017-03-18 17:42 | Inpatient (IN) | payer OTHER ==
[2017-03-18 18:33] VITALS: BMI 25.2
--- NOTE | 2017-03-18 19:35 | HP ---
Admission [facility] Chief Complaint: I WANT TO GO TO REHAB LAST REHAB 2006 AT [facility] Allergies/Adverse Reactions: Allergies Allergy/AdvReac Type Severity Reaction Status Date / Time No Known Allergies Allergy Verified 08/30/16 13:25 History of Present Illness: 56 YEARS OLD MALE WITH LONG HISTORY OF COCAINE OPIOID NICOTINE DEPENDENCE HAD HYPERTENSION, HYPERLIPIDEMIA, PARKINSON'S, CONSTIPATION BPH AND WEAKNESS OF BOTH LEGS HAS ANXIETY PTSD IS ADMITTED TO REHAB Exam Limitations: No Limitations - Ebola screening Have you traveled outside of the country in the last 21 days: No (N) Have you had contact with anyone from an Ebola affected area: No Have you been sick,other than usual withdrawal symptoms: No Do you have a fever: No - Review of Systems Constitutional: Weight Stable EENT: reports: Blurred Vision (EYE BLASSES), Dental Problems (UPPER BRIDGE) Respiratory: reports: No Symptoms reported Cardiac: reports: No Symptoms Reported, Chest Pain (HAD CHEST PAIN 03/15/17 TREATED AT [facility] NEGATIVE FINDINGS DISCHARGED 03/18/17 FOR OPIOID COCAINE REHAB) GI: reports: Constipated, Indigestion : reports: No Symptoms Reported Musculoskeletal: reports: Muscle Weakness (BOTH LEGS CHRONIC AMBULATE WITH WALKER) Integumentary: reports: No Symptoms Reported Neuro: reports: No Symptoms reported Endocrine: reports: No Symptoms Reported Hematology: reports: No Symptoms Reported Psychiatric: reports: Judgement Intact, Mood/Affect Appropiate, Orientated x3 Other Systems: Reviewed and Negative Patient History - Patient Medical History Hx Anemia: No Hx Asthma: No Hx Chronic Obstructive Pulmonary Disease (COPD): No Hx Cancer: No Hx Congestive Heart Failure: No Hx Hypertension: Yes Hx Hypercholesterolemia: Yes Hx Pacemaker: No HX Cerebrovascular Accident: No Hx Seizures: No Hx Dementia: No Hx Diabetes: No Hx Gastrointestinal Disorders: Yes Hx Liver Disease: No Hx Genitourinary Disorders: Yes (RENAL STONES) Hx Sexually Transmitted Disorders: No Hx Renal Disease (ESRD): No Hx Thyroid Disease: No Hx Human Immunodeficiency Virus (HIV): No Hx Hepatitis C: No Hx Depression: No Hx Suicide Attempt: Yes (36 YEARS OLD CUT LEFT ARM) Hx Bipolar Disorder: Yes Hx Schizophrenia: No - Patient Surgical History Past Surgical History: No - PPD History Previous Implant?: Yes Documented Results: Negative w/o proof Implanted On Prior [facility] Admission?: No PPD to be Administered?: Yes - Smoking Cessation Smoking history: Current every day smoker Have you smoked in the past 12 months: Yes Aproximately how many cigarettes per day: 5 If you are a former smoker, when did you quit?: 4 YRS AGO Cigars Per Day: 0 Hx Chewing Tobacco Use: No Initiated information on smoking cessation: Yes 'Breaking Loose' booklet given: 03/18/17 - Substance & Tx. History Hx Alcohol Use: No Hx Substance Use: Yes Substance Use Type: Cocaine, Opiates Hx Substance Use Treatment: Yes (2006 [facility]) - Substances Abused Cocaine Route: Smoking Frequency: Daily Amount used: 2 G Age of first use: 26 Date of Last Use: 03/15/17 OXYCODON Route: Oral Frequency: Daily Amount used: 90 MG Age of first use: 54 Date of Last Use: 03/17/17 Family Disease History - Family Disease History Family Disease History: Diabetes: Sister, Heart Disease: Mother (), Sister, CA: Father (), Other: Father, Mother Admission Physical Exam [facility] - Vital Signs Vital Signs: Vital Signs - 24 hr 03/18/17 18:31 Temperature 98.3 F Pulse Rate 92 H Respiratory 20 Rate Blood Pressure 115/71 - Physical General Appearance: Yes: No Apparent Distress, Appropriately Dressed, Thin HEENTM: Yes: Hearing grossly Normal, Normal ENT Inspection, Normocephalic, Normal Voice Respiratory: Yes: Chest Non-Tender, Lungs Clear, Normal Breath Sounds, No Respiratory Distress, No Accessory Muscle Use Neck: Yes: Supple, Trachea in good position Breast: Yes: Breasts Symetrical Cardiology: Yes: Regular Rhythm, S1, S2, Tachycardia Abdominal: Yes: Non Tender, Soft, Decreased BS Genitourinary: Yes: Within Normal Limits Back: Yes: Normal Inspection Musculoskeletal: Yes: full range of Motion (GRAVITY FREE), Gait Steady (WALKER) , Back pain, Muscle weakness (BOTH LEGS) Extremities: Yes: Normal Inspection, Normal Range of Motion (SLOW LEGS), Non- Tender Neurological: Yes: Fully Oriented, Alert, Normal Mood/Affect, Normal Response Integumentary: Yes: Normal Color, Warm Lymphatic: Yes: Within Normal Limits - Diagnostic (1) HTN (hypertension) Current Visit: Yes Status: Chronic Qualifiers: Hypertension type: essential hypertension Qualified Code(s): I10 - Essential (primary) hypertension (2) Hypercholesterolemia Current Visit: Yes Status: Chronic (3) Chronic lower back pain Current Visit: Yes Status: Chronic Qualifiers: Back pain laterality: unspecified Sciatica presence: without sciatica Qualified Code(s): M54.5 - Low back pain; G89.29 - Other chronic pain (4) Nicotine dependence Current Visit: Yes Status: Acute Qualifiers: Nicotine product type: cigarettes Substance use status: in withdrawal Qualified Code(s): F17.213 - Nicotine dependence, cigarettes, with withdrawal (5) PTSD (post-traumatic stress disorder) Current Visit: Yes Status: Suspected (6) Parkinson disease Current Visit: Yes Status: Chronic (7) Cocaine dependence, uncomplicated Current Visit: Yes Status: Chronic Cleared for Admission [facility] - Detox or Rehab [facility] Level of Care: Observation Bed Detox Regimen/Protocol: Not Applicable Claeared for Rehab Admission: Yes [facility] Breath Alcohol Content Breath Alcohol Content: 0 Urine Drug Screen - Results Urine Drug Screen Results: JERRELL-Cocaine, OXY-Oxycodone
--- NOTE | 2017-03-18 19:40 | HP ---
Admission ROS S - HPI Allergies/Adverse Reactions: Allergies Allergy/AdvReac Type Severity Reaction Status Date / Time No Known Allergies Allergy Verified 08/30/16 13:25 - Ebola screening Have you traveled outside of the country in the last 21 days: No (N) Have you had contact with anyone from an Ebola affected area: No Do you have a fever: No Patient History - Patient Medical History Hx Hypertension: Yes Hx Hypercholesterolemia: Yes Hx Genitourinary Disorders: Yes (RENAL STONES) Hx Depression: No Hx Suicide Attempt: No - Smoking Cessation Smoking history: Never smoked Have you smoked in the past 12 months: Yes Aproximately how many cigarettes per day: 5 If you are a former smoker, when did you quit?: 4 YRS AGO Hx Chewing Tobacco Use: No Admission Physical Exam S - Vital Signs Vital Signs: Vital Signs - 24 hr 03/18/17 18:31 Temperature 98.3 F Pulse Rate 92 H Respiratory 20 Rate Blood Pressure 115/71 [facility] Breath Alcohol Content Breath Alcohol Content: 0 Urine Drug Screen - Results Urine Drug Screen Results: JERRELL-Cocaine, OXY-Oxycodone
[2017-03-18] MEDS ORDERED: guaiFENesin/D-METHORPHAN HB 10 ML UNIT-DOSE CUPS PO PRN (19:56)
[2017-03-18] MEDS ORDERED: MAG HYDROX/AL HYDROX/SIMETH 30 ML UNIT-DOSE CUP PO PRN (19:56)
[2017-03-18] MEDS ORDERED: MENTHOL/PHENOL 1 EACH UD MM PRN (19:56)
[2017-03-18] MEDS ORDERED: NICOTINE POLACRILEX 2 MG GUM BUC PRN (19:56)
[2017-03-18] MEDS ORDERED: LOPERAMIDE HCL 2 MG CAPSULE PO PRN (19:56)
[2017-03-18] MEDS ORDERED: MAGNESIUM HYDROX 2400MG/30ML ORAL SUSPENSION 30 ML CUP PO PRN (19:56)
[2017-03-18] MEDS ORDERED: hydrOXYzine PAMOATE 50 MG CAPSULE (FP) PO PRN (19:56)
[2017-03-18] MEDS ORDERED: P-EPHED 60MG/TRIPROLIDI 2.5MG TABLET PO PRN (19:56)
[2017-03-18] MEDS ORDERED: diphenhydrAMINE HCL 50 MG CAPSULE PO PRN (19:56)
[2017-03-18] MEDS ORDERED: MAGNESIUM CITRATE 300 ML BOTTLE PO PRN (19:56)
[2017-03-18] MEDS: ATORVASTATIN CA 20 MG TABLET (FP) PO SCH (22:02)
[2017-03-18] MEDS: DOCUSATE SODIUM 100 MG CAPSULE (FP) PO SCH (22:02)
[2017-03-18] MEDS: RANITIDINE HCL 150 MG TABLET (FP) PO SCH (22:02)
[2017-03-18] MEDS: THIAMINE HCL 100 MG TABLET (FP) PO SCH (22:08)
[2017-03-18 23:07] LABS: URINE APPEARANCE CLEAR; URINE BILIRUBIN NEGATIVE (NEGATIVE); URINE BLOOD NEGATIVE (NEGATIVE); URINE COLOR YELLOW; URINE GLUCOSE (UA) NEGATIVE (NEGATIVE); URINE KETONE NEGATIVE (NEGATIVE); URINE LEUK ESTERASE NEGATIVE (NEGATIVE); URINE NITRITE NEGATIVE (NEGATIVE); URINE PROTEIN NEGATIVE (NEGATIVE); URINE UROBILINOGEN 4.0 E.U/dl mg/dL (0.2-1.0)
[2017-03-18] MEDS: CARBIDOPA/LEVODOPA 10/100 TABLET (FP) PO SCH (23:42)
[2017-03-18] MEDS: RANOLAZINE E.R. 500 MG TABLET (FP) PO SCH (23:42)
[2017-03-18] MEDS: METHYL SALICYLATE/MENTHOL OINT 30 GM TUBE TP SCH (23:43)
[2017-03-19] MEDS: CARBIDOPA/LEVODOPA 10/100 TABLET (FP) PO SCH ×3 (06:18→21:23)
[2017-03-19] MEDS: TAMSULOSIN HCL 0.4 MG CAP.ER.24H (FP) PO SCH (08:45)
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
[2017-03-19] MEDS: ASPIRIN 81 MG CHEWABLE TABLETS PO SCH (09:54)
[2017-03-19] MEDS: QUEtiapine FUMARATE 100 MG TABLET (FP) PO SCH (09:54)
[2017-03-19] MEDS: NICOTINE 14 MG/24 HOURS TOPICAL PATCH TD SCH (09:54)
[2017-03-19] MEDS: PRENATAL VITAMINS W/ FOLIC ACID TABLET (FP) PO SCH (09:55)
[2017-03-19] MEDS: RANITIDINE HCL 150 MG TABLET (FP) PO SCH ×2 (09:55→21:22)
[2017-03-19] MEDS: RANOLAZINE E.R. 500 MG TABLET (FP) PO SCH ×2 (09:55→21:25)
[2017-03-19] MEDS: PARoxetine HCL 20 MG TABLET (FP) PO SCH (09:55)
[2017-03-19] MEDS: METHYL SALICYLATE/MENTHOL OINT 30 GM TUBE TP SCH ×2 (09:55→21:23)
[2017-03-19] MEDS: DOCUSATE SODIUM 100 MG CAPSULE (FP) PO SCH ×2 (09:55→21:22)
[2017-03-19] MEDS: amLODIPine BESYLATE 2.5 MG TABLET (FP) PO SCH (10:27)
--- NOTE | 2017-03-19 17:03 | EKG ---
Test Reason : Blood Pressure : / mmHG Vent. Rate : 073 BPM Atrial Rate : 073 BPM P-R Int : 164 ms QRS Dur : 092 ms QT Int : 394 ms P-R-T Axes : 054 008 027 degrees QTc Int : 434 ms POOR DATA QUALITY, INTERPRETATION MAY BE ADVERSELY AFFECTED SINUS RHYTHM WITH OCCASIONAL PREMATURE VENTRICULAR COMPLEXES BASELINE ARTIFACTS WHEN COMPARED WITH ECG OF 15-MAR-2017 13:43, PREMATURE VENTRICULAR COMPLEXES ARE NOW PRESENT Confirmed by YOGI BOONE MD ([id number]) on 03/19/2017 5:03:35 PM Referred By: Beth Lugo Confirmed By:YOGI BOONE MD
[2017-03-19] MEDS: ATORVASTATIN CA 20 MG TABLET (FP) PO SCH (21:23)
[2017-03-19] MEDS: THIAMINE HCL 100 MG TABLET (FP) PO SCH (21:23)
[2017-03-19] MEDS: QUEtiapine FUMARATE 200 MG TABLET PO SCH (21:23)
[2017-03-20] MEDS: CARBIDOPA/LEVODOPA 10/100 TABLET (FP) PO SCH ×3 (06:27→21:43)
[2017-03-20] MEDS: TAMSULOSIN HCL 0.4 MG CAP.ER.24H (FP) PO SCH (08:30)
[2017-03-20] MEDS: amLODIPine BESYLATE 2.5 MG TABLET (FP) PO SCH (10:04)
[2017-03-20] MEDS: QUEtiapine FUMARATE 100 MG TABLET (FP) PO SCH (10:04)
[2017-03-20] MEDS: RANITIDINE HCL 150 MG TABLET (FP) PO SCH ×2 (10:04→21:43)
[2017-03-20] MEDS: ASPIRIN 81 MG CHEWABLE TABLETS PO SCH (10:04)
[2017-03-20] MEDS: DOCUSATE SODIUM 100 MG CAPSULE (FP) PO SCH ×2 (10:04→21:44)
[2017-03-20] MEDS: RANOLAZINE E.R. 500 MG TABLET (FP) PO SCH ×2 (10:04→21:44)
[2017-03-20] MEDS: PARoxetine HCL 20 MG TABLET (FP) PO SCH (10:04)
[2017-03-20] MEDS: PRENATAL VITAMINS W/ FOLIC ACID TABLET (FP) PO SCH (10:06)
[2017-03-20] MEDS: NICOTINE 14 MG/24 HOURS TOPICAL PATCH TD SCH (10:06)
[2017-03-20] MEDS: METHYL SALICYLATE/MENTHOL OINT 30 GM TUBE TP SCH ×2 (10:07→21:42)
[2017-03-20] MEDS: THIAMINE HCL 100 MG TABLET (FP) PO SCH (21:42)
[2017-03-20] MEDS: ATORVASTATIN CA 20 MG TABLET (FP) PO SCH (21:43)
[2017-03-20] MEDS: QUEtiapine FUMARATE 200 MG TABLET PO SCH (21:44)
[2017-03-21] MEDS: CARBIDOPA/LEVODOPA 10/100 TABLET (FP) PO SCH ×3 (06:25→21:18)
[2017-03-21] MEDS: TAMSULOSIN HCL 0.4 MG CAP.ER.24H (FP) PO SCH (08:30)
[2017-03-21] MEDS: QUEtiapine FUMARATE 100 MG TABLET (FP) PO SCH (10:05)
[2017-03-21] MEDS: ASPIRIN 81 MG CHEWABLE TABLETS PO SCH (10:05)
[2017-03-21] MEDS: PRENATAL VITAMINS W/ FOLIC ACID TABLET (FP) PO SCH (10:05)
[2017-03-21] MEDS: RANOLAZINE E.R. 500 MG TABLET (FP) PO SCH ×2 (10:05→21:20)
[2017-03-21] MEDS: amLODIPine BESYLATE 2.5 MG TABLET (FP) PO SCH (10:05)
[2017-03-21] MEDS: DOCUSATE SODIUM 100 MG CAPSULE (FP) PO SCH ×2 (10:05→21:18)
[2017-03-21] MEDS: PARoxetine HCL 20 MG TABLET (FP) PO SCH (10:05)
[2017-03-21] MEDS: RANITIDINE HCL 150 MG TABLET (FP) PO SCH ×2 (10:05→21:18)
[2017-03-21] MEDS: NICOTINE 14 MG/24 HOURS TOPICAL PATCH TD SCH (10:06)
[2017-03-21] MEDS: METHYL SALICYLATE/MENTHOL OINT 30 GM TUBE TP SCH ×2 (10:07→21:21)
[2017-03-21] MEDS: ATORVASTATIN CA 20 MG TABLET (FP) PO SCH (21:18)
[2017-03-21] MEDS: THIAMINE HCL 100 MG TABLET (FP) PO SCH (21:19)
[2017-03-21] MEDS: QUEtiapine FUMARATE 200 MG TABLET PO SCH (21:20)
[2017-03-22] MEDS: CARBIDOPA/LEVODOPA 10/100 TABLET (FP) PO SCH ×3 (06:31→21:04)
[2017-03-22] MEDS: TAMSULOSIN HCL 0.4 MG CAP.ER.24H (FP) PO SCH (08:32)
[2017-03-22] MEDS: ASPIRIN 81 MG CHEWABLE TABLETS PO SCH (10:31)
[2017-03-22] MEDS: NICOTINE 14 MG/24 HOURS TOPICAL PATCH TD SCH (10:31)
[2017-03-22] MEDS: RANITIDINE HCL 150 MG TABLET (FP) PO SCH ×2 (10:32→21:04)
[2017-03-22] MEDS: QUEtiapine FUMARATE 100 MG TABLET (FP) PO SCH (10:32)
[2017-03-22] MEDS: PRENATAL VITAMINS W/ FOLIC ACID TABLET (FP) PO SCH (10:32)
[2017-03-22] MEDS: PARoxetine HCL 20 MG TABLET (FP) PO SCH (10:32)
[2017-03-22] MEDS: DOCUSATE SODIUM 100 MG CAPSULE (FP) PO SCH ×2 (10:32→21:07)
[2017-03-22] MEDS: amLODIPine BESYLATE 2.5 MG TABLET (FP) PO SCH (10:32)
[2017-03-22] MEDS: RANOLAZINE E.R. 500 MG TABLET (FP) PO SCH ×2 (10:33→21:07)
[2017-03-22] MEDS: METHYL SALICYLATE/MENTHOL OINT 30 GM TUBE TP SCH ×2 (11:00→21:04)
[2017-03-22] MEDS: THIAMINE HCL 100 MG TABLET (FP) PO SCH (21:04)
[2017-03-22] MEDS: QUEtiapine FUMARATE 200 MG TABLET PO SCH (21:04)
[2017-03-22] MEDS: ATORVASTATIN CA 20 MG TABLET (FP) PO SCH (21:04)
[2017-03-22] MEDS: LIDOCAINE PATCH REMOVAL MC SCH (23:05)
[2017-03-23] MEDS: CARBIDOPA/LEVODOPA 10/100 TABLET (FP) PO SCH ×3 (06:34→21:11)
[2017-03-23] MEDS: ASPIRIN 81 MG CHEWABLE TABLETS PO SCH (10:22)
[2017-03-23] MEDS: TAMSULOSIN HCL 0.4 MG CAP.ER.24H (FP) PO SCH (10:22)
[2017-03-23] MEDS: amLODIPine BESYLATE 2.5 MG TABLET (FP) PO SCH (10:22)
[2017-03-23] MEDS: PRENATAL VITAMINS W/ FOLIC ACID TABLET (FP) PO SCH (10:23)
[2017-03-23] MEDS: QUEtiapine FUMARATE 100 MG TABLET (FP) PO SCH (10:23)
[2017-03-23] MEDS: NICOTINE 14 MG/24 HOURS TOPICAL PATCH TD SCH (10:23)
[2017-03-23] MEDS: PARoxetine HCL 20 MG TABLET (FP) PO SCH (10:23)
[2017-03-23] MEDS: DOCUSATE SODIUM 100 MG CAPSULE (FP) PO SCH ×2 (10:23→21:12)
[2017-03-23] MEDS: RANITIDINE HCL 150 MG TABLET (FP) PO SCH ×2 (10:23→21:12)
[2017-03-23] MEDS: LIDOCAINE 5% TOPICAL PATCH TP SCH (10:23)
[2017-03-23] MEDS: RANOLAZINE E.R. 500 MG TABLET (FP) PO SCH ×2 (10:24→21:12)
[2017-03-23] MEDS: METHYL SALICYLATE/MENTHOL OINT 30 GM TUBE TP SCH ×2 (10:27→21:12)
[2017-03-23] MEDS: THIAMINE HCL 100 MG TABLET (FP) PO SCH (21:11)
[2017-03-23] MEDS: ATORVASTATIN CA 20 MG TABLET (FP) PO SCH (21:12)
[2017-03-23] MEDS: QUEtiapine FUMARATE 200 MG TABLET PO SCH (21:12)
[2017-03-23] MEDS: LIDOCAINE PATCH REMOVAL MC SCH (21:13)
[2017-03-24] MEDS: CARBIDOPA/LEVODOPA 10/100 TABLET (FP) PO SCH ×3 (06:42→21:31)
[2017-03-24] MEDS: PARoxetine HCL 20 MG TABLET (FP) PO SCH (10:13)
[2017-03-24] MEDS: TAMSULOSIN HCL 0.4 MG CAP.ER.24H (FP) PO SCH (10:13)
[2017-03-24] MEDS: NICOTINE 14 MG/24 HOURS TOPICAL PATCH TD SCH (10:13)
[2017-03-24] MEDS: ASPIRIN 81 MG CHEWABLE TABLETS PO SCH (10:13)
[2017-03-24] MEDS: DOCUSATE SODIUM 100 MG CAPSULE (FP) PO SCH ×2 (10:13→21:31)
[2017-03-24] MEDS: METHYL SALICYLATE/MENTHOL OINT 30 GM TUBE TP SCH ×2 (10:13→21:30)
[2017-03-24] MEDS: QUEtiapine FUMARATE 100 MG TABLET (FP) PO SCH (10:13)
[2017-03-24] MEDS: amLODIPine BESYLATE 2.5 MG TABLET (FP) PO SCH (10:13)
[2017-03-24] MEDS: RANITIDINE HCL 150 MG TABLET (FP) PO SCH ×2 (10:13→21:31)
[2017-03-24] MEDS: PRENATAL VITAMINS W/ FOLIC ACID TABLET (FP) PO SCH (10:13)
[2017-03-24] MEDS: LIDOCAINE 5% TOPICAL PATCH TP SCH (10:13)
[2017-03-24] MEDS: RANOLAZINE E.R. 500 MG TABLET (FP) PO SCH ×2 (10:13→21:31)
[2017-03-24] MEDS: IBUPROFEN 400 MG TABLET (FP) PO PRN ×2 (10:15→21:32)
[2017-03-24] MEDS: ATORVASTATIN CA 20 MG TABLET (FP) PO SCH (21:31)
[2017-03-24] MEDS: THIAMINE HCL 100 MG TABLET (FP) PO SCH (21:31)
[2017-03-24] MEDS: LIDOCAINE PATCH REMOVAL MC SCH (21:31)
[2017-03-24] MEDS: QUEtiapine FUMARATE 200 MG TABLET PO SCH (21:31)
[2017-03-25] MEDS: CARBIDOPA/LEVODOPA 10/100 TABLET (FP) PO SCH ×3 (06:25→21:40)
[2017-03-25] MEDS: TAMSULOSIN HCL 0.4 MG CAP.ER.24H (FP) PO SCH (07:43)
[2017-03-25] MEDS: PARoxetine HCL 20 MG TABLET (FP) PO SCH (10:22)
[2017-03-25] MEDS: QUEtiapine FUMARATE 100 MG TABLET (FP) PO SCH (10:22)
[2017-03-25] MEDS: NICOTINE 14 MG/24 HOURS TOPICAL PATCH TD SCH (10:22)
[2017-03-25] MEDS: RANITIDINE HCL 150 MG TABLET (FP) PO SCH ×2 (10:22→21:40)
[2017-03-25] MEDS: DOCUSATE SODIUM 100 MG CAPSULE (FP) PO SCH ×2 (10:22→21:40)
[2017-03-25] MEDS: PRENATAL VITAMINS W/ FOLIC ACID TABLET (FP) PO SCH (10:22)
[2017-03-25] MEDS: amLODIPine BESYLATE 2.5 MG TABLET (FP) PO SCH (10:22)
[2017-03-25] MEDS: ASPIRIN 81 MG CHEWABLE TABLETS PO SCH (10:22)
[2017-03-25] MEDS: LIDOCAINE 5% TOPICAL PATCH TP SCH (10:23)
[2017-03-25] MEDS: METHYL SALICYLATE/MENTHOL OINT 30 GM TUBE TP SCH ×2 (10:24→21:41)
[2017-03-25] MEDS: IBUPROFEN 400 MG TABLET (FP) PO PRN ×2 (10:31→21:44)
[2017-03-25] MEDS: RANOLAZINE E.R. 500 MG TABLET (FP) PO SCH ×2 (10:48→21:52)
[2017-03-25] MEDS: THIAMINE HCL 100 MG TABLET (FP) PO SCH (21:40)
[2017-03-25] MEDS: QUEtiapine FUMARATE 200 MG TABLET PO SCH (21:40)
[2017-03-25] MEDS: ATORVASTATIN CA 20 MG TABLET (FP) PO SCH (21:41)
[2017-03-25] MEDS: LIDOCAINE PATCH REMOVAL MC SCH (21:43)
[2017-03-26] MEDS: CARBIDOPA/LEVODOPA 10/100 TABLET (FP) PO SCH ×3 (06:28→21:38)
[2017-03-26] MEDS: TAMSULOSIN HCL 0.4 MG CAP.ER.24H (FP) PO SCH (08:30)
[2017-03-26] MEDS: ASPIRIN 81 MG CHEWABLE TABLETS PO SCH (10:13)
[2017-03-26] MEDS: QUEtiapine FUMARATE 100 MG TABLET (FP) PO SCH (10:13)
[2017-03-26] MEDS: DOCUSATE SODIUM 100 MG CAPSULE (FP) PO SCH ×2 (10:13→21:38)
[2017-03-26] MEDS: amLODIPine BESYLATE 2.5 MG TABLET (FP) PO SCH (10:13)
[2017-03-26] MEDS: PARoxetine HCL 20 MG TABLET (FP) PO SCH (10:13)
[2017-03-26] MEDS: RANITIDINE HCL 150 MG TABLET (FP) PO SCH ×2 (10:13→21:37)
[2017-03-26] MEDS: PRENATAL VITAMINS W/ FOLIC ACID TABLET (FP) PO SCH (10:14)
[2017-03-26] MEDS: RANOLAZINE E.R. 500 MG TABLET (FP) PO SCH ×2 (10:14→21:38)
[2017-03-26] MEDS: LIDOCAINE 5% TOPICAL PATCH TP SCH (10:14)
[2017-03-26] MEDS: NICOTINE 14 MG/24 HOURS TOPICAL PATCH TD SCH (10:15)
[2017-03-26] MEDS: METHYL SALICYLATE/MENTHOL OINT 30 GM TUBE TP SCH ×2 (10:15→21:37)
[2017-03-26] MEDS: IBUPROFEN 400 MG TABLET (FP) PO PRN ×2 (10:17→21:38)
[2017-03-26] MEDS: ACETAMINOPHEN 325 MG TABLET (FP) PO PRN (14:20)
[2017-03-26] MEDS: ATORVASTATIN CA 20 MG TABLET (FP) PO SCH (21:37)
[2017-03-26] MEDS: QUEtiapine FUMARATE 200 MG TABLET PO SCH (21:37)
[2017-03-26] MEDS: THIAMINE HCL 100 MG TABLET (FP) PO SCH (21:39)
[2017-03-26] MEDS: LIDOCAINE PATCH REMOVAL MC SCH (21:39)
[2017-03-27] MEDS: CARBIDOPA/LEVODOPA 10/100 TABLET (FP) PO SCH ×3 (06:16→21:39)
[2017-03-27] MEDS: TAMSULOSIN HCL 0.4 MG CAP.ER.24H (FP) PO SCH (08:30)
[2017-03-27] MEDS: RANOLAZINE E.R. 500 MG TABLET (FP) PO SCH ×2 (09:57→21:41)
[2017-03-27] MEDS: ASPIRIN 81 MG CHEWABLE TABLETS PO SCH (09:57)
[2017-03-27] MEDS: PARoxetine HCL 20 MG TABLET (FP) PO SCH (09:57)
[2017-03-27] MEDS: DOCUSATE SODIUM 100 MG CAPSULE (FP) PO SCH ×2 (09:58→21:39)
[2017-03-27] MEDS: PRENATAL VITAMINS W/ FOLIC ACID TABLET (FP) PO SCH (09:58)
[2017-03-27] MEDS: QUEtiapine FUMARATE 100 MG TABLET (FP) PO SCH (09:58)
[2017-03-27] MEDS: RANITIDINE HCL 150 MG TABLET (FP) PO SCH ×2 (09:58→21:39)
[2017-03-27] MEDS: amLODIPine BESYLATE 2.5 MG TABLET (FP) PO SCH (09:58)
[2017-03-27] MEDS: METHYL SALICYLATE/MENTHOL OINT 30 GM TUBE TP SCH ×2 (09:59→21:43)
[2017-03-27] MEDS: NICOTINE 14 MG/24 HOURS TOPICAL PATCH TD SCH (09:59)
[2017-03-27] MEDS: LIDOCAINE 5% TOPICAL PATCH TP SCH (10:00)
[2017-03-27] MEDS: IBUPROFEN 400 MG TABLET (FP) PO PRN ×2 (14:30→21:41)
[2017-03-27] MEDS: ATORVASTATIN CA 20 MG TABLET (FP) PO SCH (21:39)
[2017-03-27] MEDS: THIAMINE HCL 100 MG TABLET (FP) PO SCH (21:39)
[2017-03-27] MEDS: QUEtiapine FUMARATE 200 MG TABLET PO SCH (21:40)
[2017-03-27] MEDS: LIDOCAINE PATCH REMOVAL MC SCH (21:43)
[2017-03-28] MEDS: CARBIDOPA/LEVODOPA 10/100 TABLET (FP) PO SCH ×3 (05:57→21:28)
[2017-03-28] MEDS: ACETAMINOPHEN 325 MG TABLET (FP) PO PRN (05:59)
[2017-03-28] MEDS: TAMSULOSIN HCL 0.4 MG CAP.ER.24H (FP) PO SCH (08:59)
[2017-03-28] MEDS: QUEtiapine FUMARATE 100 MG TABLET (FP) PO SCH (10:14)
[2017-03-28] MEDS: PARoxetine HCL 20 MG TABLET (FP) PO SCH (10:14)
[2017-03-28] MEDS: RANITIDINE HCL 150 MG TABLET (FP) PO SCH ×2 (10:14→21:28)
[2017-03-28] MEDS: ASPIRIN 81 MG CHEWABLE TABLETS PO SCH (10:14)
[2017-03-28] MEDS: RANOLAZINE E.R. 500 MG TABLET (FP) PO SCH ×2 (10:15→21:28)
[2017-03-28] MEDS: amLODIPine BESYLATE 2.5 MG TABLET (FP) PO SCH (10:15)
[2017-03-28] MEDS: PRENATAL VITAMINS W/ FOLIC ACID TABLET (FP) PO SCH (10:15)
[2017-03-28] MEDS: METHYL SALICYLATE/MENTHOL OINT 30 GM TUBE TP SCH ×2 (10:15→21:29)
[2017-03-28] MEDS: DOCUSATE SODIUM 100 MG CAPSULE (FP) PO SCH ×2 (10:15→21:28)
[2017-03-28] MEDS: LIDOCAINE 5% TOPICAL PATCH TP SCH (10:16)
[2017-03-28] MEDS: NICOTINE 14 MG/24 HOURS TOPICAL PATCH TD SCH (10:16)
[2017-03-28] MEDS: IBUPROFEN 400 MG TABLET (FP) PO PRN ×2 (10:17→21:29)
[2017-03-28] MEDS: QUEtiapine FUMARATE 200 MG TABLET PO SCH (21:28)
[2017-03-28] MEDS: THIAMINE HCL 100 MG TABLET (FP) PO SCH (21:28)
[2017-03-28] MEDS: ATORVASTATIN CA 20 MG TABLET (FP) PO SCH (21:28)
[2017-03-28] MEDS: LIDOCAINE PATCH REMOVAL MC SCH (21:29)
[2017-03-29] MEDS: CARBIDOPA/LEVODOPA 10/100 TABLET (FP) PO SCH ×3 (06:13→21:26)
[2017-03-29] MEDS: ACETAMINOPHEN 325 MG TABLET (FP) PO PRN (06:14)
[2017-03-29] MEDS: DOCUSATE SODIUM 100 MG CAPSULE (FP) PO SCH ×2 (10:30→21:26)
[2017-03-29] MEDS: RANITIDINE HCL 150 MG TABLET (FP) PO SCH ×2 (10:30→21:26)
[2017-03-29] MEDS: PRENATAL VITAMINS W/ FOLIC ACID TABLET (FP) PO SCH (10:30)
[2017-03-29] MEDS: QUEtiapine FUMARATE 100 MG TABLET (FP) PO SCH (10:30)
[2017-03-29] MEDS: TAMSULOSIN HCL 0.4 MG CAP.ER.24H (FP) PO SCH (10:30)
[2017-03-29] MEDS: amLODIPine BESYLATE 2.5 MG TABLET (FP) PO SCH (10:31)
[2017-03-29] MEDS: PARoxetine HCL 20 MG TABLET (FP) PO SCH (10:31)
[2017-03-29] MEDS: ASPIRIN 81 MG CHEWABLE TABLETS PO SCH (10:31)
[2017-03-29] MEDS: LIDOCAINE 5% TOPICAL PATCH TP SCH (10:34)
[2017-03-29] MEDS: IBUPROFEN 400 MG TABLET (FP) PO PRN (10:34)
[2017-03-29] MEDS: NICOTINE 14 MG/24 HOURS TOPICAL PATCH TD SCH (10:36)
[2017-03-29] MEDS: METHYL SALICYLATE/MENTHOL OINT 30 GM TUBE TP SCH ×2 (10:38→21:25)
[2017-03-29] MEDS: RANOLAZINE E.R. 500 MG TABLET (FP) PO SCH ×2 (10:41→22:05)
[2017-03-29] MEDS: THIAMINE HCL 100 MG TABLET (FP) PO SCH (21:26)
[2017-03-29] MEDS: QUEtiapine FUMARATE 200 MG TABLET PO SCH (21:26)
[2017-03-29] MEDS: ATORVASTATIN CA 20 MG TABLET (FP) PO SCH (21:26)
[2017-03-29] MEDS: LIDOCAINE PATCH REMOVAL MC SCH (21:27)
[2017-03-29] MEDS: IBUPROFEN 600 MG TABLET (FP) PO PRN (22:06)
[2017-03-30] MEDS: CARBIDOPA/LEVODOPA 10/100 TABLET (FP) PO SCH ×3 (06:15→21:52)
[2017-03-30] MEDS: TAMSULOSIN HCL 0.4 MG CAP.ER.24H (FP) PO SCH (09:19)
[2017-03-30] MEDS: DOCUSATE SODIUM 100 MG CAPSULE (FP) PO SCH ×2 (10:12→21:51)
[2017-03-30] MEDS: amLODIPine BESYLATE 2.5 MG TABLET (FP) PO SCH (10:12)
[2017-03-30] MEDS: PARoxetine HCL 20 MG TABLET (FP) PO SCH (10:12)
[2017-03-30] MEDS: RANITIDINE HCL 150 MG TABLET (FP) PO SCH ×2 (10:12→21:52)
[2017-03-30] MEDS: ASPIRIN 81 MG CHEWABLE TABLETS PO SCH (10:12)
[2017-03-30] MEDS: QUEtiapine FUMARATE 100 MG TABLET (FP) PO SCH (10:12)
[2017-03-30] MEDS: PRENATAL VITAMINS W/ FOLIC ACID TABLET (FP) PO SCH (10:12)
[2017-03-30] MEDS: METHYL SALICYLATE/MENTHOL OINT 30 GM TUBE TP SCH ×2 (10:13→21:54)
[2017-03-30] MEDS: NICOTINE 14 MG/24 HOURS TOPICAL PATCH TD SCH (10:13)
[2017-03-30] MEDS: LIDOCAINE 5% TOPICAL PATCH TP SCH (10:13)
[2017-03-30] MEDS: RANOLAZINE E.R. 500 MG TABLET (FP) PO SCH ×2 (10:14→21:54)
[2017-03-30] MEDS: IBUPROFEN 600 MG TABLET (FP) PO PRN ×2 (10:15→21:53)
[2017-03-30] MEDS: QUEtiapine FUMARATE 200 MG TABLET PO SCH (21:51)
[2017-03-30] MEDS: ATORVASTATIN CA 20 MG TABLET (FP) PO SCH (21:51)
[2017-03-30] MEDS: THIAMINE HCL 100 MG TABLET (FP) PO SCH (21:52)
[2017-03-30] MEDS: LIDOCAINE PATCH REMOVAL MC SCH (21:54)
[2017-03-31] MEDS: CARBIDOPA/LEVODOPA 10/100 TABLET (FP) PO SCH ×3 (06:33→21:56)
[2017-03-31] MEDS: ACETAMINOPHEN 325 MG TABLET (FP) PO PRN (06:34)
[2017-03-31] MEDS: TAMSULOSIN HCL 0.4 MG CAP.ER.24H (FP) PO SCH (09:00)
[2017-03-31] MEDS: PRENATAL VITAMINS W/ FOLIC ACID TABLET (FP) PO SCH (10:21)
[2017-03-31] MEDS: amLODIPine BESYLATE 2.5 MG TABLET (FP) PO SCH (10:22)
[2017-03-31] MEDS: PARoxetine HCL 20 MG TABLET (FP) PO SCH (10:22)
[2017-03-31] MEDS: QUEtiapine FUMARATE 100 MG TABLET (FP) PO SCH (10:22)
[2017-03-31] MEDS: ASPIRIN 81 MG CHEWABLE TABLETS PO SCH (10:22)
[2017-03-31] MEDS: RANITIDINE HCL 150 MG TABLET (FP) PO SCH ×2 (10:22→21:55)
[2017-03-31] MEDS: DOCUSATE SODIUM 100 MG CAPSULE (FP) PO SCH ×2 (10:22→21:55)
[2017-03-31] MEDS: IBUPROFEN 600 MG TABLET (FP) PO PRN ×2 (10:23→21:58)
[2017-03-31] MEDS: RANOLAZINE E.R. 500 MG TABLET (FP) PO SCH ×2 (10:23→21:56)
[2017-03-31] MEDS: METHYL SALICYLATE/MENTHOL OINT 30 GM TUBE TP SCH ×2 (10:24→22:00)
[2017-03-31] MEDS: NICOTINE 14 MG/24 HOURS TOPICAL PATCH TD SCH (10:24)
[2017-03-31] MEDS: LIDOCAINE 5% TOPICAL PATCH TP SCH (10:24)
[2017-03-31] MEDS: THIAMINE HCL 100 MG TABLET (FP) PO SCH (21:55)
[2017-03-31] MEDS: QUEtiapine FUMARATE 200 MG TABLET PO SCH (21:55)
[2017-03-31] MEDS: ATORVASTATIN CA 20 MG TABLET (FP) PO SCH (21:55)
[2017-03-31] MEDS: LIDOCAINE PATCH REMOVAL MC SCH (22:00)
[2017-04-01] MEDS: CARBIDOPA/LEVODOPA 10/100 TABLET (FP) PO SCH ×3 (05:51→21:45)
[2017-04-01] MEDS: TAMSULOSIN HCL 0.4 MG CAP.ER.24H (FP) PO SCH (09:30)
[2017-04-01] MEDS: PARoxetine HCL 20 MG TABLET (FP) PO SCH (10:34)
[2017-04-01] MEDS: QUEtiapine FUMARATE 100 MG TABLET (FP) PO SCH (10:34)
[2017-04-01] MEDS: LIDOCAINE 5% TOPICAL PATCH TP SCH (10:34)
[2017-04-01] MEDS: DOCUSATE SODIUM 100 MG CAPSULE (FP) PO SCH ×2 (10:34→21:45)
[2017-04-01] MEDS: ASPIRIN 81 MG CHEWABLE TABLETS PO SCH (10:34)
[2017-04-01] MEDS: RANITIDINE HCL 150 MG TABLET (FP) PO SCH ×2 (10:34→21:45)
[2017-04-01] MEDS: amLODIPine BESYLATE 2.5 MG TABLET (FP) PO SCH (10:34)
[2017-04-01] MEDS: METHYL SALICYLATE/MENTHOL OINT 30 GM TUBE TP SCH ×2 (10:34→21:44)
[2017-04-01] MEDS: NICOTINE 14 MG/24 HOURS TOPICAL PATCH TD SCH (10:35)
[2017-04-01] MEDS: IBUPROFEN 600 MG TABLET (FP) PO PRN ×2 (10:36→16:53)
[2017-04-01] MEDS: PRENATAL VITAMINS W/ FOLIC ACID TABLET (FP) PO SCH (10:38)
[2017-04-01] MEDS: RANOLAZINE E.R. 500 MG TABLET (FP) PO SCH ×2 (10:39→21:45)
[2017-04-01] MEDS: ATORVASTATIN CA 20 MG TABLET (FP) PO SCH (21:45)
[2017-04-01] MEDS: LIDOCAINE PATCH REMOVAL MC SCH (21:45)
[2017-04-01] MEDS: THIAMINE HCL 100 MG TABLET (FP) PO SCH (21:45)
[2017-04-01] MEDS: QUEtiapine FUMARATE 200 MG TABLET PO SCH (21:45)
[2017-04-01] MEDS: ACETAMINOPHEN 325 MG TABLET (FP) PO PRN (21:47)
[2017-04-02] MEDS: CARBIDOPA/LEVODOPA 10/100 TABLET (FP) PO SCH (06:18)
[2017-04-02 06:42] VITALS: BP 130/78; PULSE 67; TEMP 98.1
[2017-04-02] MEDS: TAMSULOSIN HCL 0.4 MG CAP.ER.24H (FP) PO SCH (08:36)
[2017-04-02] MEDS: PRENATAL VITAMINS W/ FOLIC ACID TABLET (FP) PO SCH (10:22)
[2017-04-02] MEDS: QUEtiapine FUMARATE 100 MG TABLET (FP) PO SCH (10:22)
[2017-04-02] MEDS: PARoxetine HCL 20 MG TABLET (FP) PO SCH (10:22)
[2017-04-02] MEDS: DOCUSATE SODIUM 100 MG CAPSULE (FP) PO SCH (10:22)
[2017-04-02] MEDS: LIDOCAINE 5% TOPICAL PATCH TP SCH (10:22)
[2017-04-02] MEDS: METHYL SALICYLATE/MENTHOL OINT 30 GM TUBE TP SCH (10:22)
[2017-04-02] MEDS: RANITIDINE HCL 150 MG TABLET (FP) PO SCH (10:22)
[2017-04-02] MEDS: ASPIRIN 81 MG CHEWABLE TABLETS PO SCH (10:22)
[2017-04-02] MEDS: amLODIPine BESYLATE 2.5 MG TABLET (FP) PO SCH (10:22)
[2017-04-02] MEDS: NICOTINE 14 MG/24 HOURS TOPICAL PATCH TD SCH (10:23)
[2017-04-02] MEDS: RANOLAZINE E.R. 500 MG TABLET (FP) PO SCH (10:23)
[2017-04-02] MEDS: IBUPROFEN 600 MG TABLET (FP) PO PRN (10:24)
--- NOTE | 2017-04-02 11:25 | PN ---
Psychiatric Progress Note Vital Signs: Vital Signs Period Temp Pulse Resp BP Sys/Fisher Pulse Ox Last 24 Hr 98.1 F 67 16-18 130/78 Date of Session: 04/02/17 Chief Complaint:: discharge visit HPI: Patient has addressed cocaine, nicotine dependence comorbid PTSD and Schizoaffective disorder. ROS: Hypertension, hyperlipidemia, Parkinson's, BPH, Constipation, angina and. weakness in both legs medically managed. Current Medications: Active Medications Generic Name Dose Route Start Last Admin Trade Name Freq PRN Reason Stop Dose Admin Acetaminophen 650 mg 03/18/17 19:56 04/01/17 21:47 Tylenol - PO 650 mg Q4H PRN Administration PAIN Al Hydroxide/Mg Hydroxide 30 ml 03/18/17 19:56 Mylanta Oral Suspension - PO Q6H PRN DYSPEPSIA Amlodipine Besylate 2.5 mg 03/19/17 10:00 04/02/17 10:22 Norvasc - PO 2.5 mg DAILY ABISAI Administration Aspirin 81 mg 03/19/17 10:00 04/02/17 10:22 Asa - PO 81 mg DAILY ABISAI Administration Atorvastatin Calcium 20 mg 03/18/17 22:00 04/01/17 21:45 Lipitor - PO 20 mg HS ABISAI Administration Carbidopa/Levodopa 2 each 03/18/17 22:00 04/02/17 06:18 Sinemet 10/100 - PO 2 each TID ABISAI Administration Diphenhydramine HCl 50 mg 03/18/17 19:56 Benadryl - PO HSMR1 PRN INSOMNIA Docusate Sodium 100 mg 03/18/17 22:00 04/02/17 10:22 Colace - PO 100 mg BID ABISAI Administration Eucalyptus/Menthol/Phenol/Sorbitol 1 each 03/18/17 19:56 Cepastat Lozenge - MM Q4H PRN SORE THROAT Guaifenesin 10 ml 03/18/17 19:56 Robitussin Dm - PO Q6H PRN COUGH Hydroxyzine Pamoate 50 mg 03/18/17 19:56 Vistaril - PO Q4H PRN AGITATION Ibuprofen 600 mg 03/29/17 16:34 04/02/17 10:24 Motrin - PO 600 mg Q6H PRN Administration PAIN Lidocaine 1 patch 03/23/17 10:00 04/02/17 10:22 Lidoderm Patch - TP 1 patch DAILY ABISAI Administration Loperamide HCl 4 mg 03/18/17 19:56 Imodium - PO Q6H PRN DIARRHEA Magnesium Citrate 300 ml 03/18/17 19:56 Citroma - PO Q48H PRN CONSTIPATION Magnesium Hydroxide 30 ml 03/18/17 19:56 Milk Of Magnesia - PO DAILY PRN CONSTIPATION Methyl Salicylate 1 applic 03/18/17 22:00 04/02/17 10:22 Nehemiah-Mckinney - TP Not Given BID ABISAI Miscellaneous 1 each 03/22/17 22:00 04/01/17 21:45 Lidoderm Patch Removal MC 1 each DAILY@2200 ABISAI Administration Nicotine 14 mg 03/19/17 10:00 04/02/17 10:23 Nicoderm Patch - TD Not Given DAILY ABISAI Nicotine Polacrilex 2 mg 03/18/17 19:56 Nicorette Gum - BUC Q2H PRN NICOTINE REPLACEMENT RX Paroxetine HCl 20 mg 03/19/17 10:00 04/02/17 10:22 Paxil - PO 20 mg DAILY ABISAI Administration Multivit/Folic Acid/Iron 1 tab 03/19/17 10:00 04/02/17 10:22 Vitamins ([facility]) - PO 1 tab DAILY ABISAI Administration Pseudoephedrine/Triprolidine 1 combo 03/18/17 19:56 Actifed - PO TID PRN NASAL CONGESTION Quetiapine Fumarate 100 mg 03/19/17 10:00 04/02/17 10:22 Seroquel - PO 100 mg DAILY ABISAI Administration Quetiapine Fumarate 200 mg 03/19/17 22:00 04/01/17 21:45 Seroquel - PO 200 mg HS ABISAI Administration Ranitidine HCl 150 mg 03/18/17 22:00 04/02/17 10:22 Zantac - PO 150 mg BID ABISAI Administration Ranolazine 500 mg 03/18/17 22:00 04/02/17 10:23 Ranexa - PO 500 mg BID ABISAI Administration Tamsulosin HCl 0.4 mg 03/19/17 08:30 04/02/17 08:36 Flomax - PO 0.4 mg DAILY@0830 ABISAI Administration Thiamine HCl 100 mg 03/18/17 22:00 04/01/17 21:45 Vitamin B1 - PO 100 mg HS ABISAI Administration Current Side Effect: No Lab tests ordered: No Lab tests reviewed: Yes Provider note:: Patient has completed this treatment and met his goals, will continue to address his issues at [facility] outpatient treatment program. Patient focused on importance of changing attitudes for the utilization of supports to prevent relapses. He gained insights into his addiction and motivated to continue maintain abstinence. Medications well tolerated, scripts provided for 30 days, stable for discharge. Total face to face time:: 30 Mental Status Exam - Mental Status Exam Alert and Oriented to: Time, Place, Person Cognitive Function: Good Patient Appearance: Well Groomed Mood: Hopeful Affect: Appropriate, Mood Congruent Patient Behavior: Appropriate, Cooperative Speech Pattern: Clear, Appropriate Voice Loudness: Normal Thought Process: Intact, Goal Oriented Thought Disorder: Not Present Hallucinations: Denies Suicidal Ideation: Denies Homicidal Ideation: Denies Insight/Judgement: Fair Sleep: Fair Appetite: Good Gait/Station: Other (ambullets with walker) Psychiatric Treatment Plan - Problem List (1) Nicotine dependence Current Visit: Yes Qualifiers: Nicotine product type: cigarettes Substance use status: in withdrawal Qualified Code(s): F17.213 - Nicotine dependence, cigarettes, with withdrawal (2) Schizoaffective disorder Current Visit: Yes (3) Cocaine dependence, uncomplicated Current Visit: Yes (4) HTN (hypertension) Current Visit: Yes Qualifiers: Hypertension type: essential hypertension Qualified Code(s): I10 - Essential (primary) hypertension (5) Hypercholesterolemia Current Visit: Yes (6) Parkinson disease Current Visit: Yes (7) PTSD (post-traumatic stress disorder) Current Visit: Yes
== END 2017-04-02 11:00 | disposition home or self-care (01) | DRG 895 ==
LOC: YASAS 17:42 → Y5N 17:52
PROVIDERS: ADMIT Psychiatry & Neurology Psychiatry; ATTEND Psychiatry & Neurology Psychiatry
PROC: HZ42ZZZ Group Counseling for Substance Abuse Treatment, Cognitive-Behavioral (ICD-10-PCS; principal; 2017-03-18)
DX: F14.20 Cocaine dependence, uncomplicated (principal); F17.213 Nicotine dependence, cigarettes, with withdrawal; F25.9 Schizoaffective disorder, unspecified; F43.10 Post-traumatic stress disorder, unspecified; I10 Essential (primary) hypertension; E78.00 Pure hypercholesterolemia, unspecified; G20 Parkinson's disease; N40.0 Benign prostatic hyperplasia without lower urinary tract symptoms; Z89.442 Acquired absence of left ankle; Z91.5 Personal history of self-harm
CPT/HCPCS: 36415; 71010-TC; 73030-TC-RT; 78452-TC; 80048; 80053; 80061; 80307; 81003; 82550; 83036; 83721; 83735; 84100; 84443; 84484; 85025; 85027; 85610; 86593; 93005; 93010; 93017; 93306-TC; 93971-TC; 99284-25; A9502; G0378

== ENCOUNTER 2017-07-22 09:42 | Inpatient (IN) | payer OTHER ==
[2017-07-22 11:17] VITALS: BMI 25.0
--- NOTE | 2017-07-22 14:41 | HP ---
Admission [facility] Chief Complaint: i am here for rehab from crack Allergies/Adverse Reactions: Allergies Allergy/AdvReac Type Severity Reaction Status Date / Time No Known Allergies Allergy Verified 07/22/17 11:37 History of Present Illness: this 56 years old mal with crack dependence,seeking rehab,last treatment [facility] to 04/02/17 hypercholesterlemia history of chest pain ptsd,anxiety,depression longest sobriety 8 years Exam Limitations: No Limitations - Ebola screening Have you traveled outside of the country in the last 21 days: No Have you had contact with anyone from an Ebola affected area: No Have you been sick,other than usual withdrawal symptoms: No Do you have a fever: No - Review of Systems Constitutional: No Symptoms Reported, Changes in sleep EENT: reports: No Symptoms Reported Respiratory: reports: No Symptoms reported Cardiac: reports: Chest Pain, Other (seen at [facility] 1 week ago) GI: reports: No Symptoms Reported : reports: No Symptoms Reported Musculoskeletal: reports: No Symptoms Reported Integumentary: reports: No Symptoms Reported Neuro: reports: No Symptoms reported Endocrine: reports: No Symptoms Reported Hematology: reports: No Symptoms Reported Psychiatric: reports: No Sypmtoms Reported, Judgement Intact, Mood/Affect Appropiate, Orientated x3 (ptsd), Anxious, Depressed Patient History - Patient Medical History Hx Anemia: No Hx Asthma: No Hx Chronic Obstructive Pulmonary Disease (COPD): No Hx Cancer: No Hx Cardiac Disorders: No Hx Congestive Heart Failure: No Hx Hypertension: Yes (With tx) Hx Hypercholesterolemia: Yes (on med) Hx Pacemaker: No HX Cerebrovascular Accident: No Hx Seizures: No Hx Dementia: No Hx Diabetes: No Hx Gastrointestinal Disorders: Yes Hx Liver Disease: No Hx Genitourinary Disorders: No Hx Sexually Transmitted Disorders: No Hx Renal Disease (ESRD): No Hx Thyroid Disease: No Hx Human Immunodeficiency Virus (HIV): No (last 03/18/17 negative) Hx Hepatitis C: No Hx Depression: No Hx Suicide Attempt: No Hx Bipolar Disorder: Yes Hx Schizophrenia: Yes Other Medical History: no suicidal,no homicidal,kidney stones - Patient Surgical History Past Surgical History: No Hx Neurologic Surgery: No Hx Cataract Extraction: No Hx Cardiac Surgery: No Hx Lung Surgery: No Hx Breast Surgery: No Hx Breast Biopsy: No Hx Abdominal Surgery: No Hx Appendectomy: No Hx Cholecystectomy: No Hx Section: No Hx Orthopedic Surgery: No Anesthesia Reaction: (n/a) - PPD History Previous Implant?: Yes Documented Results: Negative w/proof Date: 03/20/17 Results: 0 mm PPD to be Administered?: No - Smoking Cessation Smoking history: Current every day smoker Have you smoked in the past 12 months: Yes Aproximately how many cigarettes per day: 3 If you are a former smoker, when did you quit?: 4 YRS AGO Cigars Per Day: 0 Hx Chewing Tobacco Use: No Initiated information on smoking cessation: Yes 'Breaking Loose' booklet given: 07/22/17 - Substance & Tx. History Hx Alcohol Use: No Hx Substance Use: Yes Substance Use Type: Cocaine Hx Substance Use Treatment: Yes ([facility] 03/18/17 to 04/02/17) - Substances Abused Cocaine Route: Smoking Frequency: Daily Amount used: 1 GRAM Age of first use: 34 Date of Last Use: 07/21/17 Family Disease History - Family Disease History Family Disease History: Diabetes: Sister, Heart Disease: Mother (), Sister, CA: Father (), Other: Father, Mother Admission Physical Exam S - Vital Signs Vital Signs: Vital Signs - 24 hr 07/22/17 10:43 Temperature 97.8 F Pulse Rate 84 Respiratory 20 Rate Blood Pressure 99/52 - Physical General Appearance: Yes: Within Normal Limits HEENTM: Yes: Normocephalic, DARRELL, Pharynx Normal Respiratory: Yes: Lungs Clear, Normal Breath Sounds, No Respiratory Distress Neck: Yes: Within Normal Limits, Supple, Trachea in good position Breast: Yes: Within Normal Limits Cardiology: Yes: Within Normal Limits, Regular Rhythm, S1, S2 Abdominal: Yes: Within Normal Limits, Normal Bowel Sounds, Non Tender, Flat, Soft Genitourinary: Yes: Within Normal Limits Back: Yes: Within Normal Limits Musculoskeletal: Yes: Within Normal Limits, full range of Motion Extremities: Yes: Within Normal Limits Neurological: Yes: nursing assoc II-XII NML intact, Fully Oriented, Alert, Motor Strength 5/5 Integumentary: Yes: Within Normal Limits Lymphatic: Yes: Within Normal Limits - Diagnostic (1) Cocaine dependence Current Visit: Yes Status: Acute (2) Nicotine dependence Current Visit: No Status: Acute Qualifiers: Nicotine product type: cigarettes Substance use status: in withdrawal Qualified Code(s): F17.213 - Nicotine dependence, cigarettes, with withdrawal (3) Schizoaffective disorder Current Visit: No Status: Acute (4) Chronic lower back pain Current Visit: No Status: Chronic Qualifiers: Back pain laterality: unspecified Sciatica presence: without sciatica Qualified Code(s): M54.5 - Low back pain; G89.29 - Other chronic pain; G89.29 - Other chronic pain (5) HTN (hypertension) Current Visit: No Status: Chronic Qualifiers: Hypertension type: essential hypertension Qualified Code(s): I10 - Essential (primary) hypertension (6) Hypercholesterolemia Current Visit: No Status: Chronic (7) Parkinson disease Current Visit: No Status: Chronic (8) PTSD (post-traumatic stress disorder) Current Visit: No Status: Suspected Cleared for Admission [facility] - Detox or Rehab Claeared for Rehab Admission: Yes [facility] Breath Alcohol Content Breath Alcohol Content: 0 Urine Drug Screen - Results Drug Screen Negative: No Urine Drug Screen Results: [facility]ERRELL-Cocaine Inpatient Rehab Admission - Initial Determination Are CD services needed?: Yes Free of communicable disease: Yes Not in need of hospitalization: Yes - Rehab Admission Criteria Previous failed treatment: Yes Poor recovery environment: Yes Comorbidities: Yes Patient is meeting Inpatient Rehab admission criteria:: Yes
[2017-07-22] MEDS ORDERED: MAGNESIUM CITRATE 300 ML BOTTLE PO PRN (14:54)
[2017-07-22] MEDS ORDERED: MAG HYDROX/AL HYDROX/SIMETH 30 ML UNIT-DOSE CUP PO PRN (14:54)
[2017-07-22] MEDS ORDERED: guaiFENesin/D-METHORPHAN HB 10 ML UNIT-DOSE CUPS PO PRN (14:54)
[2017-07-22] MEDS ORDERED: MENTHOL/PHENOL 1 EACH UD MM PRN (14:54)
[2017-07-22] MEDS ORDERED: hydrOXYzine PAMOATE 25 MG CAPSULE (FP) PO PRN (14:54)
[2017-07-22] MEDS ORDERED: LOPERAMIDE HCL 2 MG CAPSULE PO PRN (14:54)
[2017-07-22 17:38] LABS: MCHC 33.6 g/dl (32.0-35.9); MEAN CELL VOLUME 95.3 fl (80-96); MEAN PLT VOLUME 9.6 fl (7.5-11.1); PLATELET COUNT 207 K/MM3 (134-434); RDW 13.1 % (11.9-15.9); WHITE BLOOD COUNT 5.8 K/mm3 (4.0-10.0)
[2017-07-22 17:44] LABS: ALBUMIN 3.8 g/dl (3.4-5.0); ANION GAP 6 (8-16); CALCIUM 9.1 mg/dL (8.5-10.1); CO2 29 mmol/L (21-32); CREATININE 1.2 mg/dL (0.7-1.3); GLUCOSE,RANDOM 105 mg/dL (74-106); SGOT/AST 10 U/L (15-37); SGPT/ALT 18 U/L (12-78)
[2017-07-22 17:45] LABS: ALK PHOS 128 U/L (45-117); BILIRUBIN,TOTAL 0.5 mg/dL (0.2-1.0); TOT PROT 6.8 g/dl (6.4-8.2)
[2017-07-22] MEDS: ATORVASTATIN CA 20 MG TABLET (FP) PO SCH (21:12)
[2017-07-22] MEDS: THIAMINE HCL 100 MG TABLET (FP) PO SCH (21:12)
[2017-07-22] MEDS: QUEtiapine FUMARATE 200 MG TABLET PO SCH (21:12)
[2017-07-22] MEDS: RANOLAZINE E.R. 500 MG TABLET (FP) PO SCH (21:13)
[2017-07-22] MEDS: CARBIDOPA/LEVODOPA 10/100 TABLET (FP) PO SCH (21:14)
[2017-07-23 00:51] LABS: URINE APPEARANCE SLCLOUDY; URINE BILIRUBIN NEGATIVE (NEGATIVE); URINE BLOOD 2+ (NEGATIVE); URINE COLOR YELLOW; URINE GLUCOSE (UA) NEGATIVE (NEGATIVE); URINE KETONE NEGATIVE (NEGATIVE); URINE NITRITE NEGATIVE (NEGATIVE); URINE PROTEIN NEGATIVE (NEGATIVE); URINE UROBILINOGEN NEGATIVE mg/dL (0.2-1.0)
[2017-07-23 01:12] LABS: URINE MUCUS FEW; URINE RBC 46 /hpf (0-3); URINE WBC 6 /hpf (3-5)
[2017-07-23] MEDS: CARBIDOPA/LEVODOPA 10/100 TABLET (FP) PO SCH ×3 (06:37→21:06)
[2017-07-23] MEDS ORDERED: amLODIPine BESYLATE 2.5 MG TABLET (FP) PO SCH (10:00)
[2017-07-23] MEDS: PRENATAL VITAMINS W/ FOLIC ACID TABLET (FP) PO SCH (10:03)
[2017-07-23] MEDS ORDERED: PARoxetine HCL 10 MG TABLET (FP) ONE (10:04)
[2017-07-23] MEDS: ASPIRIN 81 MG CHEWABLE TABLETS PO SCH (10:04)
[2017-07-23] MEDS: QUEtiapine FUMARATE 100 MG TABLET (FP) PO SCH (10:04)
[2017-07-23] MEDS: TAMSULOSIN HCL 0.4 MG CAP.ER.24H (FP) PO SCH (10:04)
[2017-07-23] MEDS: PARoxetine HCL 20 MG TABLET (FP) PO SCH (10:05)
[2017-07-23] MEDS: RANOLAZINE E.R. 500 MG TABLET (FP) PO SCH ×2 (10:53→21:06)
[2017-07-23] MEDS: amLODIPine BESYLATE 2.5 MG TABLET (FP) PO SCH (10:54)
[2017-07-23 11:18] LABS: HIV 1 & 2 AB NEGATIVE; HIV 1 AGp24 NEGATIVE
[2017-07-23] MEDS ORDERED: PNEUMOCOCCAL 23 VACCINE 0.5 ML VIAL IM ONE (12:00)
[2017-07-23] MEDS ORDERED: PNEUMOC 13-VAL CONJ-DIP CRM/PF 0.5 ML DISP.SYRIN IM ONE (12:00)
[2017-07-23] MEDS ORDERED: FLU VACCINE QUAD 60 MCG/0.5 ML (MDV 17-18) IM ONE (12:00)
[2017-07-23 12:12] LABS: URINE LEUK ESTERASE Negative (NEGATIVE)
--- NOTE | 2017-07-23 12:33 | EKG ---
Test Reason : Blood Pressure : / mmHG Vent. Rate : 053 BPM Atrial Rate : 053 BPM P-R Int : 170 ms QRS Dur : 090 ms QT Int : 436 ms P-R-T Axes : 040 007 010 degrees QTc Int : 409 ms SINUS BRADYCARDIA NONSPECIFIC ST AND T WAVE ABNORMALITY EARLY REPOLARIZATION ABNORMAL ECG WHEN COMPARED WITH ECG OF 18-MAR-2017 22:27, PREMATURE VENTRICULAR COMPLEXES ARE NO LONGER PRESENT NONSPECIFIC T WAVE ABNORMALITY NOW EVIDENT IN LATERAL LEADS CLINICAL CORRELATION IS RECOMMENDED Confirmed by YOGI BOONE MD ([id number]) on 07/23/2017 12:33:16 PM Referred By: Confirmed By:YOGI BOONE MD
--- NOTE | 2017-07-23 15:09 | HP ---
Psychiatrist Admission - Data Date of interview: 07/23/17 Admission source: [facility] Identifying data: This is the second 5N inpatient rehabilitation admission for this 56 year old male, who is unemployed on [place] benefits, residing with his in [place] apartment. Medical History: Hypertension, hyperlipidemia, Parkinson's, BPH, Constipation, angina and. weakness in both legs. Smokes 4 cigarettes a day. Psychiatric History: Patient with long history of mental illness (since 1990), was diagnosed as PTSD and Schizophrenia, 2 psychiatric hospitalization s in 2006 [facility] and at [facility] in , [facility] up with at [facility] and currently on Seroquel 100 mg po am and 200 mg po hs, PAxil 20 mg po daily. Physical/Sexual Abuse/Trauma History: Denies history of sexual, physical and verbal abuse, admits having nightmares and flschbacks of his service in [place]. Vital Signs: Vital Signs - 24 hr 07/22/17 07/23/17 07/23/17 22:00 00:32 03:30 Temperature 98.3 F Pulse Rate 70 Respiratory 18 18 18 Rate Blood Pressure 127/68 07/23/17 06:37 Temperature 97.7 F Pulse Rate 56 L Respiratory 16 Rate Blood Pressure 109/70 Allergies/Adverse Reactions: Allergies Allergy/AdvReac Type Severity Reaction Status Date / Time No Known Allergies Allergy Verified 07/22/17 11:37 Date of last physical exam: 07/22/17 Concur with the findings of this exam: Yes - Substance Abuse/Tx History Hx Alcohol Use: No Substance Use Type: Cocaine (daily use) Hx Substance Use Treatment: Yes ([facility] Mental Status Exam - Mental Status Exam Alert and Oriented to: Time, Place, Person Cognitive Function: Grossly Intact Patient Appearance: Well Groomed Mood: Anxious Affect: Mood Congruent Patient Behavior: Appropriate, Cooperative Speech Pattern: Slurred Voice Loudness: Monoloudness Thought Process: Goal Oriented Thought Disorder: Not Present Hallucinations: Denies, Auditory (4 months ago) Suicidal Ideation: Denies Homicidal Ideation: Denies Insight/Judgement: Fair Sleep: Fair Appetite: Fair Gait/Station: Other (ambulates with cane) Psychiatric Findings - Problem List ([place] 1, 2,3) (1) Cocaine dependence Current Visit: Yes Status: Acute (2) Nicotine dependence Current Visit: No Status: Acute Qualifiers: Nicotine product type: cigarettes Substance use status: in withdrawal Qualified Code(s): F17.213 - Nicotine dependence, cigarettes, with withdrawal (3) Schizoaffective disorder Current Visit: No Status: Acute (4) HTN (hypertension) Current Visit: No Status: Chronic Qualifiers: Hypertension type: essential hypertension Qualified Code(s): I10 - Essential (primary) hypertension (5) Hypercholesterolemia Current Visit: No Status: Chronic (6) PTSD (post-traumatic stress disorder) Current Visit: No Status: Suspected - Initial Treatment Plan Initial Treatment Plan: to continue his current medications, monitor progress as needed.
[2017-07-23] MEDS: ATORVASTATIN CA 20 MG TABLET (FP) PO SCH (21:05)
[2017-07-23] MEDS: QUEtiapine FUMARATE 200 MG TABLET PO SCH (21:05)
[2017-07-23] MEDS: THIAMINE HCL 100 MG TABLET (FP) PO SCH (21:05)
[2017-07-24] MEDS: CARBIDOPA/LEVODOPA 10/100 TABLET (FP) PO SCH ×3 (06:38→21:07)
[2017-07-24] MEDS: TAMSULOSIN HCL 0.4 MG CAP.ER.24H (FP) PO SCH (09:30)
[2017-07-24] MEDS: PRENATAL VITAMINS W/ FOLIC ACID TABLET (FP) PO SCH (09:43)
[2017-07-24] MEDS: RANOLAZINE E.R. 500 MG TABLET (FP) PO SCH ×2 (09:43→21:07)
[2017-07-24] MEDS: QUEtiapine FUMARATE 100 MG TABLET (FP) PO SCH (09:43)
[2017-07-24] MEDS: ASPIRIN 81 MG CHEWABLE TABLETS PO SCH (09:43)
[2017-07-24] MEDS: PARoxetine HCL 20 MG TABLET (FP) PO SCH (09:43)
[2017-07-24] MEDS: amLODIPine BESYLATE 2.5 MG TABLET (FP) PO SCH (09:43)
[2017-07-24] MEDS: P-EPHED 60MG/TRIPROLIDI 2.5MG TABLET PO PRN ×2 (09:45→21:09)
[2017-07-24] MEDS: THIAMINE HCL 100 MG TABLET (FP) PO SCH (21:07)
[2017-07-24] MEDS: QUEtiapine FUMARATE 200 MG TABLET PO SCH (21:08)
[2017-07-24] MEDS: ATORVASTATIN CA 20 MG TABLET (FP) PO SCH (21:08)
[2017-07-25] MEDS: CARBIDOPA/LEVODOPA 10/100 TABLET (FP) PO SCH ×3 (06:23→21:05)
[2017-07-25] MEDS: TAMSULOSIN HCL 0.4 MG CAP.ER.24H (FP) PO SCH (09:30)
[2017-07-25] MEDS: amLODIPine BESYLATE 2.5 MG TABLET (FP) PO SCH (09:38)
[2017-07-25] MEDS: PRENATAL VITAMINS W/ FOLIC ACID TABLET (FP) PO SCH (09:38)
[2017-07-25] MEDS: RANOLAZINE E.R. 500 MG TABLET (FP) PO SCH ×2 (09:38→21:05)
[2017-07-25] MEDS: QUEtiapine FUMARATE 100 MG TABLET (FP) PO SCH (09:38)
[2017-07-25] MEDS: ASPIRIN 81 MG CHEWABLE TABLETS PO SCH (09:38)
[2017-07-25] MEDS: PARoxetine HCL 20 MG TABLET (FP) PO SCH (09:38)
[2017-07-25] MEDS: QUEtiapine FUMARATE 200 MG TABLET PO SCH (21:05)
[2017-07-25] MEDS: ATORVASTATIN CA 20 MG TABLET (FP) PO SCH (21:05)
[2017-07-25] MEDS: THIAMINE HCL 100 MG TABLET (FP) PO SCH (21:05)
[2017-07-25] MEDS: IBUPROFEN 400 MG TABLET (FP) PO PRN (21:07)
[2017-07-26] MEDS: CARBIDOPA/LEVODOPA 10/100 TABLET (FP) PO SCH ×3 (06:29→21:14)
[2017-07-26] MEDS: PARoxetine HCL 20 MG TABLET (FP) PO SCH (09:37)
[2017-07-26] MEDS: ASPIRIN 81 MG CHEWABLE TABLETS PO SCH (09:37)
[2017-07-26] MEDS: RANOLAZINE E.R. 500 MG TABLET (FP) PO SCH ×2 (09:37→21:14)
[2017-07-26] MEDS: QUEtiapine FUMARATE 100 MG TABLET (FP) PO SCH (09:37)
[2017-07-26] MEDS: PRENATAL VITAMINS W/ FOLIC ACID TABLET (FP) PO SCH (09:37)
[2017-07-26] MEDS: TAMSULOSIN HCL 0.4 MG CAP.ER.24H (FP) PO SCH (09:37)
[2017-07-26] MEDS: amLODIPine BESYLATE 2.5 MG TABLET (FP) PO SCH (12:10)
--- NOTE | 2017-07-26 12:10 | PN ---
SOLE Progress Note Note: patient has furuncle of right neck for 1 week,pain in the back,constipation furnucle 0.5x0.5 am, no drainage abdomen soft,no distension,no pain treatment keflex 500 mgs po tid for 7 days dulcoloax 1 tab po daily for constipation
[2017-07-26] MEDS ORDERED: BISACODYL 5 MG TABLET.DR (FP) PO ONE (12:30)
[2017-07-26] MEDS: CEPHALEXIN MONOHYDRATE 500 MG CAPSULE (UD) PO SCH ×2 (13:08→21:14)
[2017-07-26] MEDS: ATORVASTATIN CA 20 MG TABLET (FP) PO SCH (21:14)
[2017-07-26] MEDS: THIAMINE HCL 100 MG TABLET (FP) PO SCH (21:14)
[2017-07-26] MEDS: QUEtiapine FUMARATE 200 MG TABLET PO SCH (21:14)
[2017-07-26] MEDS: IBUPROFEN 400 MG TABLET (FP) PO PRN (21:15)
[2017-07-27] MEDS: CEPHALEXIN MONOHYDRATE 500 MG CAPSULE (UD) PO SCH ×3 (06:42→21:08)
[2017-07-27] MEDS: CARBIDOPA/LEVODOPA 10/100 TABLET (FP) PO SCH ×3 (06:42→21:08)
[2017-07-27] MEDS: QUEtiapine FUMARATE 100 MG TABLET (FP) PO SCH (09:55)
[2017-07-27] MEDS: PARoxetine HCL 20 MG TABLET (FP) PO SCH (09:55)
[2017-07-27] MEDS: TAMSULOSIN HCL 0.4 MG CAP.ER.24H (FP) PO SCH (09:55)
[2017-07-27] MEDS: ASPIRIN 81 MG CHEWABLE TABLETS PO SCH (09:55)
[2017-07-27] MEDS: PRENATAL VITAMINS W/ FOLIC ACID TABLET (FP) PO SCH (09:55)
[2017-07-27] MEDS: RANOLAZINE E.R. 500 MG TABLET (FP) PO SCH ×2 (09:55→21:08)
[2017-07-27] MEDS: amLODIPine BESYLATE 2.5 MG TABLET (FP) PO SCH (09:56)
[2017-07-27] MEDS: ATORVASTATIN CA 20 MG TABLET (FP) PO SCH (21:08)
[2017-07-27] MEDS: QUEtiapine FUMARATE 200 MG TABLET PO SCH (21:08)
[2017-07-27] MEDS: THIAMINE HCL 100 MG TABLET (FP) PO SCH (21:08)
[2017-07-27] MEDS: IBUPROFEN 400 MG TABLET (FP) PO PRN (21:09)
[2017-07-28] MEDS: CEPHALEXIN MONOHYDRATE 500 MG CAPSULE (UD) PO SCH ×3 (06:49→21:13)
[2017-07-28] MEDS: CARBIDOPA/LEVODOPA 10/100 TABLET (FP) PO SCH ×3 (06:49→21:13)
[2017-07-28] MEDS: ASPIRIN 81 MG CHEWABLE TABLETS PO SCH (09:57)
[2017-07-28] MEDS: PRENATAL VITAMINS W/ FOLIC ACID TABLET (FP) PO SCH (09:57)
[2017-07-28] MEDS: amLODIPine BESYLATE 2.5 MG TABLET (FP) PO SCH (09:57)
[2017-07-28] MEDS: TAMSULOSIN HCL 0.4 MG CAP.ER.24H (FP) PO SCH (09:57)
[2017-07-28] MEDS: PARoxetine HCL 20 MG TABLET (FP) PO SCH (09:57)
[2017-07-28] MEDS: IBUPROFEN 400 MG TABLET (FP) PO PRN ×2 (09:57→21:14)
[2017-07-28] MEDS: QUEtiapine FUMARATE 100 MG TABLET (FP) PO SCH (09:57)
[2017-07-28] MEDS: RANOLAZINE E.R. 500 MG TABLET (FP) PO SCH ×2 (10:12→21:13)
[2017-07-28] MEDS: ATORVASTATIN CA 20 MG TABLET (FP) PO SCH (21:13)
[2017-07-28] MEDS: QUEtiapine FUMARATE 200 MG TABLET PO SCH (21:13)
[2017-07-28] MEDS: THIAMINE HCL 100 MG TABLET (FP) PO SCH (21:13)
[2017-07-28] MEDS: P-EPHED 60MG/TRIPROLIDI 2.5MG TABLET PO PRN (21:15)
[2017-07-29] MEDS: CARBIDOPA/LEVODOPA 10/100 TABLET (FP) PO SCH ×3 (06:25→21:17)
[2017-07-29] MEDS: CEPHALEXIN MONOHYDRATE 500 MG CAPSULE (UD) PO SCH ×3 (06:25→21:16)
[2017-07-29] MEDS: P-EPHED 60MG/TRIPROLIDI 2.5MG TABLET PO PRN (06:27)
[2017-07-29] MEDS: IBUPROFEN 400 MG TABLET (FP) PO PRN ×2 (06:27→21:20)
[2017-07-29] MEDS: TAMSULOSIN HCL 0.4 MG CAP.ER.24H (FP) PO SCH (08:51)
[2017-07-29] MEDS: ASPIRIN 81 MG CHEWABLE TABLETS PO SCH (09:47)
[2017-07-29] MEDS: amLODIPine BESYLATE 2.5 MG TABLET (FP) PO SCH (09:47)
[2017-07-29] MEDS: PRENATAL VITAMINS W/ FOLIC ACID TABLET (FP) PO SCH (09:47)
[2017-07-29] MEDS: PARoxetine HCL 20 MG TABLET (FP) PO SCH (09:47)
[2017-07-29] MEDS: QUEtiapine FUMARATE 100 MG TABLET (FP) PO SCH (09:47)
[2017-07-29] MEDS: RANOLAZINE E.R. 500 MG TABLET (FP) PO SCH ×2 (09:48→21:17)
[2017-07-29] MEDS: ATORVASTATIN CA 20 MG TABLET (FP) PO SCH (21:17)
[2017-07-29] MEDS: QUEtiapine FUMARATE 200 MG TABLET PO SCH (21:17)
[2017-07-29] MEDS: THIAMINE HCL 100 MG TABLET (FP) PO SCH (21:19)
[2017-07-30] MEDS: CEPHALEXIN MONOHYDRATE 500 MG CAPSULE (UD) PO SCH ×3 (06:49→21:15)
[2017-07-30] MEDS: CARBIDOPA/LEVODOPA 10/100 TABLET (FP) PO SCH ×3 (06:49→21:15)
[2017-07-30] MEDS: TAMSULOSIN HCL 0.4 MG CAP.ER.24H (FP) PO SCH (07:34)
[2017-07-30] MEDS: QUEtiapine FUMARATE 100 MG TABLET (FP) PO SCH (09:39)
[2017-07-30] MEDS: ASPIRIN 81 MG CHEWABLE TABLETS PO SCH (09:39)
[2017-07-30] MEDS: PRENATAL VITAMINS W/ FOLIC ACID TABLET (FP) PO SCH (09:39)
[2017-07-30] MEDS: RANOLAZINE E.R. 500 MG TABLET (FP) PO SCH ×2 (09:39→21:15)
[2017-07-30] MEDS: PARoxetine HCL 20 MG TABLET (FP) PO SCH (09:39)
[2017-07-30] MEDS: amLODIPine BESYLATE 2.5 MG TABLET (FP) PO SCH (09:40)
[2017-07-30] MEDS: QUEtiapine FUMARATE 200 MG TABLET PO SCH (21:15)
[2017-07-30] MEDS: THIAMINE HCL 100 MG TABLET (FP) PO SCH (21:15)
[2017-07-30] MEDS: ATORVASTATIN CA 20 MG TABLET (FP) PO SCH (21:15)
[2017-07-30] MEDS: IBUPROFEN 400 MG TABLET (FP) PO PRN (21:17)
[2017-07-31] MEDS: CARBIDOPA/LEVODOPA 10/100 TABLET (FP) PO SCH ×3 (06:21→21:06)
[2017-07-31] MEDS: CEPHALEXIN MONOHYDRATE 500 MG CAPSULE (UD) PO SCH ×3 (06:21→21:05)
[2017-07-31] MEDS: TAMSULOSIN HCL 0.4 MG CAP.ER.24H (FP) PO SCH (09:30)
[2017-07-31] MEDS: ASPIRIN 81 MG CHEWABLE TABLETS PO SCH (09:37)
[2017-07-31] MEDS: RANOLAZINE E.R. 500 MG TABLET (FP) PO SCH ×2 (09:38→21:05)
[2017-07-31] MEDS: amLODIPine BESYLATE 2.5 MG TABLET (FP) PO SCH (09:38)
[2017-07-31] MEDS: PARoxetine HCL 20 MG TABLET (FP) PO SCH (09:38)
[2017-07-31] MEDS: PRENATAL VITAMINS W/ FOLIC ACID TABLET (FP) PO SCH (09:38)
[2017-07-31] MEDS: QUEtiapine FUMARATE 100 MG TABLET (FP) PO SCH (09:38)
[2017-07-31] MEDS: ACETAMINOPHEN 325 MG TABLET (FP) PO PRN ×2 (09:39→21:07)
[2017-07-31] MEDS: THIAMINE HCL 100 MG TABLET (FP) PO SCH (21:05)
[2017-07-31] MEDS: ATORVASTATIN CA 20 MG TABLET (FP) PO SCH (21:05)
[2017-07-31] MEDS: QUEtiapine FUMARATE 200 MG TABLET PO SCH (21:05)
[2017-08-01] MEDS: ACETAMINOPHEN 325 MG TABLET (FP) PO PRN ×2 (06:24→21:15)
[2017-08-01] MEDS: CARBIDOPA/LEVODOPA 10/100 TABLET (FP) PO SCH ×3 (06:24→21:13)
[2017-08-01] MEDS: CEPHALEXIN MONOHYDRATE 500 MG CAPSULE (UD) PO SCH ×3 (06:24→21:13)
[2017-08-01] MEDS: QUEtiapine FUMARATE 100 MG TABLET (FP) PO SCH (09:50)
[2017-08-01] MEDS: TAMSULOSIN HCL 0.4 MG CAP.ER.24H (FP) PO SCH (09:50)
[2017-08-01] MEDS: PARoxetine HCL 20 MG TABLET (FP) PO SCH (09:50)
[2017-08-01] MEDS: PRENATAL VITAMINS W/ FOLIC ACID TABLET (FP) PO SCH (09:50)
[2017-08-01] MEDS: ASPIRIN 81 MG CHEWABLE TABLETS PO SCH (09:50)
[2017-08-01] MEDS: RANOLAZINE E.R. 500 MG TABLET (FP) PO SCH ×2 (09:50→21:13)
[2017-08-01] MEDS: MAGNESIUM HYDROX 2400MG/30ML ORAL SUSPENSION 30 ML CUP PO PRN (10:45)
[2017-08-01] MEDS: THIAMINE HCL 100 MG TABLET (FP) PO SCH (21:13)
[2017-08-01] MEDS: QUEtiapine FUMARATE 200 MG TABLET PO SCH (21:13)
[2017-08-01] MEDS: ATORVASTATIN CA 20 MG TABLET (FP) PO SCH (21:13)
[2017-08-02] MEDS: CARBIDOPA/LEVODOPA 10/100 TABLET (FP) PO SCH ×3 (05:42→22:32)
[2017-08-02] MEDS: CEPHALEXIN MONOHYDRATE 500 MG CAPSULE (UD) PO SCH (05:42)
[2017-08-02] MEDS: IBUPROFEN 400 MG TABLET (FP) PO PRN (08:49)
[2017-08-02] MEDS: TAMSULOSIN HCL 0.4 MG CAP.ER.24H (FP) PO SCH (08:49)
[2017-08-02] MEDS: PRENATAL VITAMINS W/ FOLIC ACID TABLET (FP) PO SCH (09:43)
[2017-08-02] MEDS: RANOLAZINE E.R. 500 MG TABLET (FP) PO SCH ×2 (09:43→21:05)
[2017-08-02] MEDS: ASPIRIN 81 MG CHEWABLE TABLETS PO SCH (09:43)
[2017-08-02] MEDS: PARoxetine HCL 20 MG TABLET (FP) PO SCH (09:43)
[2017-08-02] MEDS: QUEtiapine FUMARATE 100 MG TABLET (FP) PO SCH (09:43)
[2017-08-02] MEDS: THIAMINE HCL 100 MG TABLET (FP) PO SCH (21:05)
[2017-08-02] MEDS: ATORVASTATIN CA 20 MG TABLET (FP) PO SCH (21:05)
[2017-08-02] MEDS: QUEtiapine FUMARATE 200 MG TABLET PO SCH (21:05)
[2017-08-03] MEDS: CARBIDOPA/LEVODOPA 10/100 TABLET (FP) PO SCH ×3 (06:11→22:51)
[2017-08-03] MEDS: P-EPHED 60MG/TRIPROLIDI 2.5MG TABLET PO PRN (06:11)
[2017-08-03] MEDS: PARoxetine HCL 20 MG TABLET (FP) PO SCH (09:02)
[2017-08-03] MEDS: TAMSULOSIN HCL 0.4 MG CAP.ER.24H (FP) PO SCH (09:02)
[2017-08-03] MEDS: PRENATAL VITAMINS W/ FOLIC ACID TABLET (FP) PO SCH (09:02)
[2017-08-03] MEDS: QUEtiapine FUMARATE 100 MG TABLET (FP) PO SCH (09:02)
[2017-08-03] MEDS: RANOLAZINE E.R. 500 MG TABLET (FP) PO SCH ×2 (09:02→21:07)
[2017-08-03] MEDS: ASPIRIN 81 MG CHEWABLE TABLETS PO SCH (09:02)
[2017-08-03] MEDS: ACETAMINOPHEN 325 MG TABLET (FP) PO PRN ×2 (09:03→21:06)
[2017-08-03] MEDS: QUEtiapine FUMARATE 200 MG TABLET PO SCH (21:07)
[2017-08-03] MEDS: ATORVASTATIN CA 20 MG TABLET (FP) PO SCH (21:07)
[2017-08-03] MEDS: THIAMINE HCL 100 MG TABLET (FP) PO SCH (21:07)
[2017-08-04] MEDS: CARBIDOPA/LEVODOPA 10/100 TABLET (FP) PO SCH ×3 (05:56→21:05)
[2017-08-04] MEDS: ACETAMINOPHEN 325 MG TABLET (FP) PO PRN ×2 (05:57→21:06)
[2017-08-04] MEDS: ASPIRIN 81 MG CHEWABLE TABLETS PO SCH (09:20)
[2017-08-04] MEDS: QUEtiapine FUMARATE 100 MG TABLET (FP) PO SCH (09:20)
[2017-08-04] MEDS: RANOLAZINE E.R. 500 MG TABLET (FP) PO SCH ×2 (09:20→21:04)
[2017-08-04] MEDS: PRENATAL VITAMINS W/ FOLIC ACID TABLET (FP) PO SCH (09:20)
[2017-08-04] MEDS: TAMSULOSIN HCL 0.4 MG CAP.ER.24H (FP) PO SCH (09:20)
[2017-08-04] MEDS: PARoxetine HCL 20 MG TABLET (FP) PO SCH (09:21)
[2017-08-04] MEDS: THIAMINE HCL 100 MG TABLET (FP) PO SCH (21:05)
[2017-08-04] MEDS: QUEtiapine FUMARATE 200 MG TABLET PO SCH (21:05)
[2017-08-04] MEDS: ATORVASTATIN CA 20 MG TABLET (FP) PO SCH (21:05)
[2017-08-05] MEDS: CARBIDOPA/LEVODOPA 10/100 TABLET (FP) PO SCH ×3 (06:41→21:03)
[2017-08-05] MEDS: P-EPHED 60MG/TRIPROLIDI 2.5MG TABLET PO PRN (06:43)
[2017-08-05] MEDS: IBUPROFEN 400 MG TABLET (FP) PO PRN (09:47)
[2017-08-05] MEDS: TAMSULOSIN HCL 0.4 MG CAP.ER.24H (FP) PO SCH (09:47)
[2017-08-05] MEDS: RANOLAZINE E.R. 500 MG TABLET (FP) PO SCH ×2 (09:47→21:03)
[2017-08-05] MEDS: PARoxetine HCL 20 MG TABLET (FP) PO SCH (09:47)
[2017-08-05] MEDS: QUEtiapine FUMARATE 100 MG TABLET (FP) PO SCH (09:47)
[2017-08-05] MEDS: PRENATAL VITAMINS W/ FOLIC ACID TABLET (FP) PO SCH (09:47)
[2017-08-05] MEDS: ASPIRIN 81 MG CHEWABLE TABLETS PO SCH (09:47)
[2017-08-05] MEDS: MAGNESIUM HYDROX 2400MG/30ML ORAL SUSPENSION 30 ML CUP PO PRN (10:48)
[2017-08-05] MEDS: ACETAMINOPHEN 325 MG TABLET (FP) PO PRN (21:03)
[2017-08-05] MEDS: QUEtiapine FUMARATE 200 MG TABLET PO SCH (21:03)
[2017-08-05] MEDS: ATORVASTATIN CA 20 MG TABLET (FP) PO SCH (21:03)
[2017-08-05] MEDS: THIAMINE HCL 100 MG TABLET (FP) PO SCH (21:03)
[2017-08-05] MEDS: SENNOSIDES 8.6MG TABLET (FP) PO SCH (21:05)
[2017-08-05] MEDS: DOCUSATE SODIUM 100 MG CAPSULE (FP) PO SCH (21:06)
[2017-08-06] MEDS: ACETAMINOPHEN 325 MG TABLET (FP) PO PRN ×2 (06:27→21:08)
[2017-08-06] MEDS: P-EPHED 60MG/TRIPROLIDI 2.5MG TABLET PO PRN (06:28)
[2017-08-06] MEDS: CARBIDOPA/LEVODOPA 10/100 TABLET (FP) PO SCH ×3 (09:56→21:07)
[2017-08-06] MEDS: ASPIRIN 81 MG CHEWABLE TABLETS PO SCH (09:57)
[2017-08-06] MEDS: RANOLAZINE E.R. 500 MG TABLET (FP) PO SCH ×2 (09:57→21:07)
[2017-08-06] MEDS: PARoxetine HCL 20 MG TABLET (FP) PO SCH (09:57)
[2017-08-06] MEDS: PRENATAL VITAMINS W/ FOLIC ACID TABLET (FP) PO SCH (09:57)
[2017-08-06] MEDS: TAMSULOSIN HCL 0.4 MG CAP.ER.24H (FP) PO SCH (09:57)
[2017-08-06] MEDS: QUEtiapine FUMARATE 100 MG TABLET (FP) PO SCH (09:57)
[2017-08-06] MEDS: QUEtiapine FUMARATE 200 MG TABLET PO SCH (21:07)
[2017-08-06] MEDS: DOCUSATE SODIUM 100 MG CAPSULE (FP) PO SCH (21:07)
[2017-08-06] MEDS: SENNOSIDES 8.6MG TABLET (FP) PO SCH (21:07)
[2017-08-06] MEDS: ATORVASTATIN CA 20 MG TABLET (FP) PO SCH (21:07)
[2017-08-06] MEDS: THIAMINE HCL 100 MG TABLET (FP) PO SCH (21:07)
[2017-08-07] MEDS: CARBIDOPA/LEVODOPA 10/100 TABLET (FP) PO SCH ×3 (06:14→21:17)
[2017-08-07] MEDS: P-EPHED 60MG/TRIPROLIDI 2.5MG TABLET PO PRN ×2 (06:15→21:21)
[2017-08-07] MEDS: RANOLAZINE E.R. 500 MG TABLET (FP) PO SCH ×2 (09:52→21:18)
[2017-08-07] MEDS: PRENATAL VITAMINS W/ FOLIC ACID TABLET (FP) PO SCH (09:52)
[2017-08-07] MEDS: ASPIRIN 81 MG CHEWABLE TABLETS PO SCH (09:52)
[2017-08-07] MEDS: QUEtiapine FUMARATE 100 MG TABLET (FP) PO SCH (09:52)
[2017-08-07] MEDS: PARoxetine HCL 20 MG TABLET (FP) PO SCH (09:52)
[2017-08-07] MEDS: TAMSULOSIN HCL 0.4 MG CAP.ER.24H (FP) PO SCH (09:52)
[2017-08-07] MEDS: IBUPROFEN 400 MG TABLET (FP) PO PRN ×2 (09:53→21:20)
[2017-08-07] MEDS: SENNOSIDES 8.6MG TABLET (FP) PO SCH (21:17)
[2017-08-07] MEDS: DOCUSATE SODIUM 100 MG CAPSULE (FP) PO SCH (21:17)
[2017-08-07] MEDS: ATORVASTATIN CA 20 MG TABLET (FP) PO SCH (21:18)
[2017-08-07] MEDS: THIAMINE HCL 100 MG TABLET (FP) PO SCH (21:18)
[2017-08-07] MEDS: QUEtiapine FUMARATE 200 MG TABLET PO SCH (21:21)
[2017-08-08] MEDS: ACETAMINOPHEN 325 MG TABLET (FP) PO PRN (06:09)
[2017-08-08] MEDS: P-EPHED 60MG/TRIPROLIDI 2.5MG TABLET PO PRN ×2 (06:10→21:51)
[2017-08-08] MEDS: TAMSULOSIN HCL 0.4 MG CAP.ER.24H (FP) PO SCH (09:30)
[2017-08-08] MEDS: RANOLAZINE E.R. 500 MG TABLET (FP) PO SCH ×2 (10:00→21:48)
[2017-08-08] MEDS: PARoxetine HCL 20 MG TABLET (FP) PO SCH (10:00)
[2017-08-08] MEDS: QUEtiapine FUMARATE 100 MG TABLET (FP) PO SCH (10:00)
[2017-08-08] MEDS: ASPIRIN 81 MG CHEWABLE TABLETS PO SCH (10:00)
[2017-08-08] MEDS: PRENATAL VITAMINS W/ FOLIC ACID TABLET (FP) PO SCH (10:00)
[2017-08-08] MEDS: CARBIDOPA/LEVODOPA 10/100 TABLET (FP) PO SCH ×3 (10:22→21:49)
[2017-08-08] MEDS: THIAMINE HCL 100 MG TABLET (FP) PO SCH (21:47)
[2017-08-08] MEDS: DOCUSATE SODIUM 100 MG CAPSULE (FP) PO SCH (21:47)
[2017-08-08] MEDS: SENNOSIDES 8.6MG TABLET (FP) PO SCH (21:48)
[2017-08-08] MEDS: ATORVASTATIN CA 20 MG TABLET (FP) PO SCH (21:49)
[2017-08-08] MEDS: QUEtiapine FUMARATE 200 MG TABLET PO SCH (21:49)
[2017-08-08] MEDS: IBUPROFEN 400 MG TABLET (FP) PO PRN (21:50)
[2017-08-09] MEDS: CARBIDOPA/LEVODOPA 10/100 TABLET (FP) PO SCH ×3 (06:09→21:07)
[2017-08-09] MEDS: P-EPHED 60MG/TRIPROLIDI 2.5MG TABLET PO PRN ×2 (06:11→21:09)
[2017-08-09] MEDS: ACETAMINOPHEN 325 MG TABLET (FP) PO PRN (06:11)
[2017-08-09] MEDS: TAMSULOSIN HCL 0.4 MG CAP.ER.24H (FP) PO SCH (09:30)
[2017-08-09] MEDS: ASPIRIN 81 MG CHEWABLE TABLETS PO SCH (09:37)
[2017-08-09] MEDS: PRENATAL VITAMINS W/ FOLIC ACID TABLET (FP) PO SCH (09:38)
[2017-08-09] MEDS: RANOLAZINE E.R. 500 MG TABLET (FP) PO SCH ×2 (09:38→21:07)
[2017-08-09] MEDS: QUEtiapine FUMARATE 100 MG TABLET (FP) PO SCH (09:38)
[2017-08-09] MEDS: PARoxetine HCL 20 MG TABLET (FP) PO SCH (09:38)
[2017-08-09] MEDS: SENNOSIDES 8.6MG TABLET (FP) PO SCH (21:07)
[2017-08-09] MEDS: DOCUSATE SODIUM 100 MG CAPSULE (FP) PO SCH (21:07)
[2017-08-09] MEDS: THIAMINE HCL 100 MG TABLET (FP) PO SCH (21:07)
[2017-08-09] MEDS: QUEtiapine FUMARATE 200 MG TABLET PO SCH (21:07)
[2017-08-09] MEDS: ATORVASTATIN CA 20 MG TABLET (FP) PO SCH (21:07)
[2017-08-09] MEDS: IBUPROFEN 400 MG TABLET (FP) PO PRN (21:09)
[2017-08-10] MEDS: P-EPHED 60MG/TRIPROLIDI 2.5MG TABLET PO PRN (06:33)
[2017-08-10] MEDS: CARBIDOPA/LEVODOPA 10/100 TABLET (FP) PO SCH ×3 (06:33→21:10)
[2017-08-10] MEDS: PRENATAL VITAMINS W/ FOLIC ACID TABLET (FP) PO SCH (09:43)
[2017-08-10] MEDS: RANOLAZINE E.R. 500 MG TABLET (FP) PO SCH ×2 (09:43→21:10)
[2017-08-10] MEDS: QUEtiapine FUMARATE 100 MG TABLET (FP) PO SCH (09:43)
[2017-08-10] MEDS: PARoxetine HCL 20 MG TABLET (FP) PO SCH (09:43)
[2017-08-10] MEDS: ACETAMINOPHEN 325 MG TABLET (FP) PO PRN (09:44)
[2017-08-10] MEDS: TAMSULOSIN HCL 0.4 MG CAP.ER.24H (FP) PO SCH (09:44)
[2017-08-10] MEDS: ASPIRIN 81 MG CHEWABLE TABLETS PO SCH (09:44)
[2017-08-10] MEDS: ATORVASTATIN CA 20 MG TABLET (FP) PO SCH (21:08)
[2017-08-10] MEDS: DOCUSATE SODIUM 100 MG CAPSULE (FP) PO SCH (21:08)
[2017-08-10] MEDS: SENNOSIDES 8.6MG TABLET (FP) PO SCH (21:09)
[2017-08-10] MEDS: QUEtiapine FUMARATE 200 MG TABLET PO SCH (21:09)
[2017-08-10] MEDS: THIAMINE HCL 100 MG TABLET (FP) PO SCH (21:10)
[2017-08-10] MEDS: IBUPROFEN 400 MG TABLET (FP) PO PRN (21:11)
[2017-08-11] MEDS: CARBIDOPA/LEVODOPA 10/100 TABLET (FP) PO SCH ×3 (06:44→21:07)
[2017-08-11] MEDS: TAMSULOSIN HCL 0.4 MG CAP.ER.24H (FP) PO SCH (09:54)
[2017-08-11] MEDS: RANOLAZINE E.R. 500 MG TABLET (FP) PO SCH ×2 (09:54→21:06)
[2017-08-11] MEDS: QUEtiapine FUMARATE 100 MG TABLET (FP) PO SCH (09:54)
[2017-08-11] MEDS: ASPIRIN 81 MG CHEWABLE TABLETS PO SCH (09:54)
[2017-08-11] MEDS: PRENATAL VITAMINS W/ FOLIC ACID TABLET (FP) PO SCH (09:54)
[2017-08-11] MEDS: PARoxetine HCL 20 MG TABLET (FP) PO SCH (09:54)
[2017-08-11] MEDS: ACETAMINOPHEN 325 MG TABLET (FP) PO PRN ×2 (09:55→21:08)
[2017-08-11] MEDS: ATORVASTATIN CA 20 MG TABLET (FP) PO SCH (21:06)
[2017-08-11] MEDS: SENNOSIDES 8.6MG TABLET (FP) PO SCH (21:06)
[2017-08-11] MEDS: THIAMINE HCL 100 MG TABLET (FP) PO SCH (21:06)
[2017-08-11] MEDS: QUEtiapine FUMARATE 200 MG TABLET PO SCH (21:06)
[2017-08-11] MEDS: DOCUSATE SODIUM 100 MG CAPSULE (FP) PO SCH (21:07)
[2017-08-12] MEDS: CARBIDOPA/LEVODOPA 10/100 TABLET (FP) PO SCH ×3 (05:43→21:13)
[2017-08-12] MEDS: TAMSULOSIN HCL 0.4 MG CAP.ER.24H (FP) PO SCH (08:22)
[2017-08-12] MEDS: RANOLAZINE E.R. 500 MG TABLET (FP) PO SCH ×2 (09:52→21:13)
[2017-08-12] MEDS: ASPIRIN 81 MG CHEWABLE TABLETS PO SCH (09:52)
[2017-08-12] MEDS: PARoxetine HCL 20 MG TABLET (FP) PO SCH (09:52)
[2017-08-12] MEDS: PRENATAL VITAMINS W/ FOLIC ACID TABLET (FP) PO SCH (09:52)
[2017-08-12] MEDS: QUEtiapine FUMARATE 100 MG TABLET (FP) PO SCH (09:52)
[2017-08-12] MEDS: THIAMINE HCL 100 MG TABLET (FP) PO SCH (21:12)
[2017-08-12] MEDS: DOCUSATE SODIUM 100 MG CAPSULE (FP) PO SCH (21:13)
[2017-08-12] MEDS: SENNOSIDES 8.6MG TABLET (FP) PO SCH (21:13)
[2017-08-12] MEDS: ATORVASTATIN CA 20 MG TABLET (FP) PO SCH (21:13)
[2017-08-12] MEDS: QUEtiapine FUMARATE 200 MG TABLET PO SCH (21:14)
[2017-08-12] MEDS: ACETAMINOPHEN 325 MG TABLET (FP) PO PRN (21:14)
[2017-08-13] MEDS: CARBIDOPA/LEVODOPA 10/100 TABLET (FP) PO SCH ×3 (06:23→21:25)
[2017-08-13] MEDS: ACETAMINOPHEN 325 MG TABLET (FP) PO PRN ×2 (06:23→21:25)
[2017-08-13] MEDS: RANOLAZINE E.R. 500 MG TABLET (FP) PO SCH ×2 (09:54→21:24)
[2017-08-13] MEDS: TAMSULOSIN HCL 0.4 MG CAP.ER.24H (FP) PO SCH (09:54)
[2017-08-13] MEDS: PRENATAL VITAMINS W/ FOLIC ACID TABLET (FP) PO SCH (09:54)
[2017-08-13] MEDS: QUEtiapine FUMARATE 100 MG TABLET (FP) PO SCH (09:54)
[2017-08-13] MEDS: PARoxetine HCL 20 MG TABLET (FP) PO SCH (09:54)
[2017-08-13] MEDS: ASPIRIN 81 MG CHEWABLE TABLETS PO SCH (09:54)
[2017-08-13] MEDS: IBUPROFEN 400 MG TABLET (FP) PO PRN (09:55)
[2017-08-13] MEDS: ATORVASTATIN CA 20 MG TABLET (FP) PO SCH (21:24)
[2017-08-13] MEDS: THIAMINE HCL 100 MG TABLET (FP) PO SCH (21:24)
[2017-08-13] MEDS: SENNOSIDES 8.6MG TABLET (FP) PO SCH (21:24)
[2017-08-13] MEDS: QUEtiapine FUMARATE 200 MG TABLET PO SCH (21:24)
[2017-08-13] MEDS: DOCUSATE SODIUM 100 MG CAPSULE (FP) PO SCH (21:24)
[2017-08-14] MEDS: ACETAMINOPHEN 325 MG TABLET (FP) PO PRN (06:28)
[2017-08-14] MEDS: CARBIDOPA/LEVODOPA 10/100 TABLET (FP) PO SCH ×3 (06:29→21:11)
[2017-08-14] MEDS: TAMSULOSIN HCL 0.4 MG CAP.ER.24H (FP) PO SCH (09:30)
[2017-08-14] MEDS: RANOLAZINE E.R. 500 MG TABLET (FP) PO SCH ×2 (09:52→21:11)
[2017-08-14] MEDS: QUEtiapine FUMARATE 100 MG TABLET (FP) PO SCH (09:52)
[2017-08-14] MEDS: PARoxetine HCL 20 MG TABLET (FP) PO SCH (09:52)
[2017-08-14] MEDS: ASPIRIN 81 MG CHEWABLE TABLETS PO SCH (09:52)
[2017-08-14] MEDS: PRENATAL VITAMINS W/ FOLIC ACID TABLET (FP) PO SCH (09:52)
[2017-08-14] MEDS: IBUPROFEN 400 MG TABLET (FP) PO PRN ×2 (09:53→21:13)
--- NOTE | 2017-08-14 13:32 | PN ---
[facility] Progress Note (SOAP) Subjective: pt feeling dizziness a few days ago concerned he may be getting too much insulin Objective: 08/14/17 13:23 Vital Signs Temperature 98.1 F 08/14/17 06:33 Pulse Rate 65 08/14/17 06:33 Respiratory Rate 16 08/14/17 06:33 Blood Pressure 108/75 08/14/17 06:33 O2 Sat by Pulse Oximetry (%) bgm 189 at 12 noon prior to lunch feet + tinea Assessment: 08/14/17 13:24 Type ! DM x > 20yrs on levamir 20 u at hs and novolog 20u tid with meals. Will obtain hgb aic and chemistry . Pt will remain on levamir 40u at hs . novolg 20u tid will be d/c'e and pt started on a sliding scale tid Tinea pedis , tinea cruris Plan: comp metabolic hgbaic cbc tinactin bid insulin sliding scale.
[2017-08-14] MEDS: SENNOSIDES 8.6MG TABLET (FP) PO SCH (21:11)
[2017-08-14] MEDS: DOCUSATE SODIUM 100 MG CAPSULE (FP) PO SCH (21:11)
[2017-08-14] MEDS: THIAMINE HCL 100 MG TABLET (FP) PO SCH (21:11)
[2017-08-14] MEDS: QUEtiapine FUMARATE 200 MG TABLET PO SCH (21:11)
[2017-08-14] MEDS: ATORVASTATIN CA 20 MG TABLET (FP) PO SCH (21:11)
[2017-08-15] MEDS: CARBIDOPA/LEVODOPA 10/100 TABLET (FP) PO SCH ×3 (06:14→21:19)
[2017-08-15] MEDS: ACETAMINOPHEN 325 MG TABLET (FP) PO PRN ×2 (06:15→21:20)
[2017-08-15] MEDS: TAMSULOSIN HCL 0.4 MG CAP.ER.24H (FP) PO SCH (08:40)
[2017-08-15] MEDS: RANOLAZINE E.R. 500 MG TABLET (FP) PO SCH ×2 (09:46→21:17)
[2017-08-15] MEDS: PRENATAL VITAMINS W/ FOLIC ACID TABLET (FP) PO SCH (09:46)
[2017-08-15] MEDS: ASPIRIN 81 MG CHEWABLE TABLETS PO SCH (09:47)
[2017-08-15] MEDS: QUEtiapine FUMARATE 100 MG TABLET (FP) PO SCH (09:47)
[2017-08-15] MEDS: PARoxetine HCL 20 MG TABLET (FP) PO SCH (09:47)
[2017-08-15] MEDS: IBUPROFEN 400 MG TABLET (FP) PO PRN (09:48)
[2017-08-15] MEDS: THIAMINE HCL 100 MG TABLET (FP) PO SCH (21:17)
[2017-08-15] MEDS: DOCUSATE SODIUM 100 MG CAPSULE (FP) PO SCH (21:18)
[2017-08-15] MEDS: SENNOSIDES 8.6MG TABLET (FP) PO SCH (21:18)
[2017-08-15] MEDS: QUEtiapine FUMARATE 200 MG TABLET PO SCH (21:19)
[2017-08-15] MEDS: ATORVASTATIN CA 20 MG TABLET (FP) PO SCH (21:19)
[2017-08-16] MEDS: ACETAMINOPHEN 325 MG TABLET (FP) PO PRN ×2 (06:21→14:20)
[2017-08-16] MEDS: CARBIDOPA/LEVODOPA 10/100 TABLET (FP) PO SCH ×3 (06:21→21:20)
[2017-08-16] MEDS: TAMSULOSIN HCL 0.4 MG CAP.ER.24H (FP) PO SCH (09:30)
[2017-08-16] MEDS: ASPIRIN 81 MG CHEWABLE TABLETS PO SCH (09:32)
[2017-08-16] MEDS: RANOLAZINE E.R. 500 MG TABLET (FP) PO SCH ×2 (09:32→21:19)
[2017-08-16] MEDS: QUEtiapine FUMARATE 100 MG TABLET (FP) PO SCH (09:32)
[2017-08-16] MEDS: PRENATAL VITAMINS W/ FOLIC ACID TABLET (FP) PO SCH (09:32)
[2017-08-16] MEDS: PARoxetine HCL 20 MG TABLET (FP) PO SCH (09:32)
[2017-08-16] MEDS: IBUPROFEN 400 MG TABLET (FP) PO PRN ×2 (09:34→21:23)
[2017-08-16] MEDS: DOCUSATE SODIUM 100 MG CAPSULE (FP) PO SCH (21:19)
[2017-08-16] MEDS: SENNOSIDES 8.6MG TABLET (FP) PO SCH (21:19)
[2017-08-16] MEDS: QUEtiapine FUMARATE 200 MG TABLET PO SCH (21:20)
[2017-08-16] MEDS: ATORVASTATIN CA 20 MG TABLET (FP) PO SCH (21:20)
[2017-08-16] MEDS: THIAMINE HCL 100 MG TABLET (FP) PO SCH (21:20)
[2017-08-17] MEDS: CARBIDOPA/LEVODOPA 10/100 TABLET (FP) PO SCH ×3 (06:26→21:13)
[2017-08-17] MEDS: ACETAMINOPHEN 325 MG TABLET (FP) PO PRN ×2 (06:27→21:14)
[2017-08-17] MEDS: PRENATAL VITAMINS W/ FOLIC ACID TABLET (FP) PO SCH (09:29)
[2017-08-17] MEDS: PARoxetine HCL 20 MG TABLET (FP) PO SCH (09:29)
[2017-08-17] MEDS: ASPIRIN 81 MG CHEWABLE TABLETS PO SCH (09:29)
[2017-08-17] MEDS: QUEtiapine FUMARATE 100 MG TABLET (FP) PO SCH (09:29)
[2017-08-17] MEDS: TAMSULOSIN HCL 0.4 MG CAP.ER.24H (FP) PO SCH (09:29)
[2017-08-17] MEDS: RANOLAZINE E.R. 500 MG TABLET (FP) PO SCH ×2 (09:29→21:13)
[2017-08-17] MEDS: IBUPROFEN 400 MG TABLET (FP) PO PRN (09:30)
[2017-08-17] MEDS: THIAMINE HCL 100 MG TABLET (FP) PO SCH (21:12)
[2017-08-17] MEDS: SENNOSIDES 8.6MG TABLET (FP) PO SCH (21:13)
[2017-08-17] MEDS: QUEtiapine FUMARATE 200 MG TABLET PO SCH (21:13)
[2017-08-17] MEDS: DOCUSATE SODIUM 100 MG CAPSULE (FP) PO SCH (21:13)
[2017-08-17] MEDS: ATORVASTATIN CA 20 MG TABLET (FP) PO SCH (21:14)
[2017-08-17] MEDS: P-EPHED 60MG/TRIPROLIDI 2.5MG TABLET PO PRN (21:15)
[2017-08-18] MEDS: ACETAMINOPHEN 325 MG TABLET (FP) PO PRN ×3 (06:28→21:12)
[2017-08-18] MEDS: CARBIDOPA/LEVODOPA 10/100 TABLET (FP) PO SCH ×3 (06:29→21:11)
[2017-08-18 06:50] VITALS: TEMP 97.1
[2017-08-18] MEDS: TAMSULOSIN HCL 0.4 MG CAP.ER.24H (FP) PO SCH (09:30)
[2017-08-18] MEDS: PARoxetine HCL 20 MG TABLET (FP) PO SCH (09:40)
[2017-08-18] MEDS: ASPIRIN 81 MG CHEWABLE TABLETS PO SCH (09:40)
[2017-08-18] MEDS: QUEtiapine FUMARATE 100 MG TABLET (FP) PO SCH (09:40)
[2017-08-18] MEDS: PRENATAL VITAMINS W/ FOLIC ACID TABLET (FP) PO SCH (09:40)
[2017-08-18] MEDS: RANOLAZINE E.R. 500 MG TABLET (FP) PO SCH ×2 (09:40→21:11)
[2017-08-18] MEDS: IBUPROFEN 400 MG TABLET (FP) PO PRN (09:41)
--- NOTE | 2017-08-18 13:34 | PN ---
Psychiatric Progress Note Vital Signs: Vital Signs Period Temp Pulse Resp BP Sys/Fisher Pulse Ox Last 24 Hr 97.1 F 68 18-18 122/76 Date of Session: 08/18/17 Chief Complaint:: Discharge Note HPI: Patient addressing Cocaine Dependence comorbid with Nicotine Dependence, Schizoaffective Disorder and Posttraumatic Stress Disorder ROS: HTN, HLD were medically managed Current Medications: Active Medications Generic Name Dose Route Start Last Admin Trade Name Freq PRN Reason Stop Dose Admin Acetaminophen 650 mg 07/22/17 14:54 08/18/17 06:28 Tylenol - PO 650 mg Q4H PRN Administration PAIN Al Hydroxide/Mg Hydroxide 30 ml 07/22/17 14:54 Mylanta Oral Suspension - PO Q6H PRN DYSPEPSIA Aspirin 81 mg 07/23/17 10:00 08/18/17 09:40 Asa - PO 81 mg DAILY ABISAI Administration Atorvastatin Calcium 20 mg 07/22/17 22:00 08/17/17 21:14 Lipitor - PO 20 mg HS ABISAI Administration Carbidopa/Levodopa 2 each 07/22/17 22:00 08/18/17 06:29 Sinemet 10/100 - PO 2 each TID ABISAI Administration Docusate Sodium 300 mg 08/05/17 22:00 08/17/17 21:13 Colace - PO 300 mg HS ABISAI Administration Eucalyptus/Menthol/Phenol/Sorbitol 1 each 07/22/17 14:54 Cepastat Lozenge - MM Q4H PRN SORE THROAT Guaifenesin 10 ml 07/22/17 14:54 Robitussin Dm - PO Q6H PRN COUGH Hydroxyzine Pamoate 25 mg 07/22/17 14:54 Vistaril - PO Q4H PRN AGITATION Ibuprofen 400 mg 07/22/17 14:54 08/18/17 09:41 Motrin - PO 400 mg Q6H PRN Administration SEVERE PAIN Loperamide HCl 4 mg 07/22/17 14:54 Imodium - PO Q6H PRN DIARRHEA Magnesium Citrate 300 ml 07/22/17 14:54 Citroma - PO Q48H PRN CONSTIPATION Magnesium Hydroxide 30 ml 07/22/17 14:54 08/05/17 10:48 Milk Of Magnesia - PO 30 ml DAILY PRN Administration CONSTIPATION Paroxetine HCl 20 mg 07/23/17 10:00 08/18/17 09:40 Paxil - PO 20 mg DAILY ABISAI Administration Multivit/Folic Acid/Iron 1 tab 07/23/17 10:00 08/18/17 09:40 Vitamins (Sjr) - PO 1 tab DAILY ABISAI Administration Pseudoephedrine/Triprolidine 1 combo 07/22/17 14:54 08/17/17 21:15 Actifed - PO 1 combo TID PRN Administration NASAL CONGESTION Quetiapine Fumarate 100 mg 07/23/17 10:00 08/18/17 09:40 Seroquel - PO 100 mg DAILY ABISAI Administration Quetiapine Fumarate 200 mg 07/22/17 22:00 08/17/17 21:13 Seroquel - PO 200 mg HS ABISAI Administration Ranolazine 500 mg 07/22/17 22:00 08/18/17 09:40 Ranexa - PO 500 mg BID ABISAI Administration Senna 2 tab 08/05/17 22:00 08/17/17 21:13 Senna - PO 2 tab HS ABISAI Administration Tamsulosin HCl 0.4 mg 07/23/17 08:30 08/18/17 09:30 Flomax - PO 0.4 mg DAILY@0830 ABISAI Administration Thiamine HCl 100 mg 07/22/17 22:00 08/17/17 21:12 Vitamin B1 - PO 100 mg HS ABISAI Administration Current Side Effect: No Lab tests ordered: Yes Lab tests reviewed: Yes Provider note:: Patient will complete this program on 08/19/17. He has met his treatment goals and will continue to address his issues in outpatient treatment at the [facility] substancec abuse at [address] [address]. Told staff writer that from his participation in this program, he has learn the importance of surrounding himself with positive people in order to maintain abstinence. He responded well to Seroquel 100 mg po HS and Paxil 20 mg po daily. Scripts for 30 days supply of medications will be electronically transmitted to [facility] at [address] [place] [address]. He is stable for discharge on 08/19/17 Total face to face time:: 35 Mental Status Exam - Mental Status Exam Alert and Oriented to: Time, Place, Person Cognitive Function: Fair Patient Appearance: Well Groomed Mood: Hopeful, Euthymic Affect: Appropriate Patient Behavior: Cooperative Speech Pattern: Slurred Voice Loudness: Monoloudness Thought Process: Intact Thought Disorder: Not Present Hallucinations: Denies Suicidal Ideation: Denies Homicidal Ideation: Denies Insight/Judgement: Fair Sleep: Fair Appetite: Good Muscle strength/Tone: Normal Gait/Station: Normal Psychiatric Treatment Plan - Problem List (1) Cocaine dependence Current Visit: Yes (2) Nicotine dependence Current Visit: No Qualifiers: Nicotine product type: cigarettes Substance use status: in withdrawal Qualified Code(s): F17.213 - Nicotine dependence, cigarettes, with withdrawal (3) Schizoaffective disorder Current Visit: No (4) PTSD (post-traumatic stress disorder) Current Visit: No (5) Cocaine dependence, uncomplicated Current Visit: No (6) HTN (hypertension) Current Visit: No Qualifiers: Hypertension type: essential hypertension Qualified Code(s): I10 - Essential (primary) hypertension (7) Hypercholesterolemia Current Visit: No (8) Parkinson disease Current Visit: No Initial treatment plan: Patient will be discharged tomorrow and referred to the [facility] substance abuse for outpatient treatment
[2017-08-18] MEDS: THIAMINE HCL 100 MG TABLET (FP) PO SCH (21:10)
[2017-08-18] MEDS: QUEtiapine FUMARATE 200 MG TABLET PO SCH (21:11)
[2017-08-18] MEDS: SENNOSIDES 8.6MG TABLET (FP) PO SCH (21:11)
[2017-08-18] MEDS: DOCUSATE SODIUM 100 MG CAPSULE (FP) PO SCH (21:12)
[2017-08-18] MEDS: ATORVASTATIN CA 20 MG TABLET (FP) PO SCH (21:12)
[2017-08-19] MEDS: CARBIDOPA/LEVODOPA 10/100 TABLET (FP) PO SCH (06:19)
[2017-08-19] MEDS: ACETAMINOPHEN 325 MG TABLET (FP) PO PRN (06:19)
[2017-08-19 06:36] VITALS: BP 115/78; PULSE 66
[2017-08-19] MEDS: ASPIRIN 81 MG CHEWABLE TABLETS PO SCH (09:04)
[2017-08-19] MEDS: PRENATAL VITAMINS W/ FOLIC ACID TABLET (FP) PO SCH (09:04)
[2017-08-19] MEDS: TAMSULOSIN HCL 0.4 MG CAP.ER.24H (FP) PO SCH (09:05)
[2017-08-19] MEDS: QUEtiapine FUMARATE 100 MG TABLET (FP) PO SCH (09:05)
[2017-08-19] MEDS: RANOLAZINE E.R. 500 MG TABLET (FP) PO SCH (09:05)
[2017-08-19] MEDS: PARoxetine HCL 20 MG TABLET (FP) PO SCH (09:05)
== END 2017-08-19 09:20 | disposition home or self-care (01) | DRG 895 ==
LOC: YASAS 09:42 → Y5N 15:30
PROVIDERS: ADMIT Psychiatry & Neurology Psychiatry; ATTEND Psychiatry & Neurology Psychiatry
PROC: HZ42ZZZ Group Counseling for Substance Abuse Treatment, Cognitive-Behavioral (ICD-10-PCS; principal; 2017-07-27)
DX: F19.20 Other psychoactive substance dependence, uncomplicated (principal); F14.20 Cocaine dependence, uncomplicated; F17.213 Nicotine dependence, cigarettes, with withdrawal; F25.9 Schizoaffective disorder, unspecified; F43.10 Post-traumatic stress disorder, unspecified; I10 Essential (primary) hypertension; E78.5 Hyperlipidemia, unspecified; G20 Parkinson's disease
CPT/HCPCS: 36415; 80053; 81003; 81015; 85027; 86593; 87389; 90688; 90732; 93005; 93010; G0008; G0009

== ENCOUNTER 2018-02-03 14:16 | Inpatient (IN) | payer OTHER ==
[2018-02-03 16:53] VITALS: BMI 24.3
--- NOTE | 2018-02-03 18:19 | HP ---
Admission [facility] Chief Complaint: Here for rehab for crack use history. Allergies/Adverse Reactions: Allergies Allergy/AdvReac Type Severity Reaction Status Date / Time No Known Allergies Allergy Verified 02/03/18 17:17 History of Present Illness: Here for rehab. Crack use began at age 36 to 39. Stopped for 9 years and began re-using at age 48 daily until 2 weeks ago. Relapsed again w/ crack 2 days ago. Also drank 2 quarts beer 2 days ago but doesn't usually drink. Denies other drug use. Hx Chest pain/angin unrelated to activity and resolves on own. No co- occurring difficulty of breathing/SOB . Hx. Parkinson's Disease and enlarged prostate. Exam Limitations: No Limitations - Ebola screening Have you traveled outside of the country in the last 21 days: No Have you had contact with anyone from an Ebola affected area: No Have you been sick,other than usual withdrawal symptoms: No Do you have a fever: No - Review of Systems Constitutional: Changes in sleep (Takes seroquel for sleep.), Unintentional Wgt. Loss (Anout 10 lb weight loss in 5 months.) EENT: reports: Blurred Vision (Wears glasses.), Dental Problems (Has bridge. Chews and swallows.) Respiratory: reports: No Symptoms reported Cardiac: reports: Chest Pain (About 1 x/wk. Sharp unrelated to activity and resolves on own ith rest afyer 1-2 minutes. Not associated with difficulty breathing..), Other (Occ low blood pressure which increases when bends down.) GI: reports: Constipated (BM's every 4 days. Light brown hard. Occ streaks of blood when strains alot..) : reports: Other (Hx enlarged prostate. On Tamsuosin daily. No blood in urine. Difficulty in remaining continent if off Tamsulosin.) Musculoskeletal: reports: Other Integumentary: reports: No Symptoms Reported Neuro: reports: Tremors (Resting tremors of hands for 3 years r/t Parkinsons' Disease.), Unsteady Gait ( R/t Parkinsons' Disease.), Dizziness (r/t getting up too quickly.) Endocrine: reports: No Symptoms Reported Hematology: reports: No Symptoms Reported Psychiatric: reports: Orientated x3 Patient History - Patient Medical History Hx Anemia: No Hx Asthma: No Hx Chronic Obstructive Pulmonary Disease (COPD): No Hx Cancer: No Hx Cardiac Disorders: No Hx Congestive Heart Failure: No Hx Hypertension: Yes (With tx) Hx Hypercholesterolemia: Yes (on med) Hx Pacemaker: No HX Cerebrovascular Accident: No Hx Seizures: No Hx Dementia: No Hx Diabetes: No Hx Gastrointestinal Disorders: Yes (No pills. Occ mylanta) Hx Liver Disease: No Hx Genitourinary Disorders: No Hx Sexually Transmitted Disorders: No Hx Renal Disease (ESRD): No Hx Thyroid Disease: No Hx Human Immunodeficiency Virus (HIV): No (last 03/18/17 negative) Hx Hepatitis C: No Hx Depression: No Hx Suicide Attempt: No Hx Bipolar Disorder: No Hx Schizophrenia: Yes (Denies suicide or violent ideation) Other Medical History: Parkinsons Disease dx 3 yrs ago. - Patient Surgical History Past Surgical History: No Hx Neurologic Surgery: No Hx Cataract Extraction: No Hx Cardiac Surgery: No Hx Lung Surgery: No Hx Breast Surgery: No Hx Breast Biopsy: No Hx Abdominal Surgery: No Hx Appendectomy: No Hx Cholecystectomy: No Hx Section: No Hx Orthopedic Surgery: No Other Surgical History: Lithotripsy for kidney stones Anesthesia Reaction: (n/a) - PPD History Previous Implant?: Yes Documented Results: Negative w/proof Implanted On Prior [facility] Admission?: Yes Date: 03/20/17 Results: 0 mm PPD to be Administered?: No - Smoking Cessation Smoking history: Current every day smoker Have you smoked in the past 12 months: Yes Aproximately how many cigarettes per day: 3 If you are a former smoker, when did you quit?: 4 YRS AGO Cigars Per Day: 0 Hx Chewing Tobacco Use: No Initiated information on smoking cessation: Yes 'Breaking Loose' booklet given: 02/03/18 - Substance & Tx. History Hx Alcohol Use: Yes (Rarely. Did drink 2 days ago.) Hx Substance Use: Yes Substance Use Type: Cocaine Hx Substance Use Treatment: Yes (Detox and rehab hs.) Family Disease History - Family Disease History Family Disease History: Diabetes: Sister, Heart Disease: Mother (), Sister, [place]: Father (), Other: Father, Mother Admission Physical Exam [facility] - Vital Signs Vital Signs: Vital Signs - 24 hr 02/03/18 16:46 Temperature 97.1 F L Pulse Rate 65 Respiratory 20 Rate Blood Pressure 124/75 - Physical General Appearance: Yes: Nourished, Tremorous (Resting tremors) HEENTM: Yes: EOMI, DARRELL Respiratory: Yes: Lungs Clear, Normal Breath Sounds, No Respiratory Distress Neck: Yes: No masses,lesions,Nodules, Supple Breast: Yes: Breast Exam Deferred Cardiology: Yes: Regular Rhythm, Regular Rate, S1, S2 Abdominal: Yes: Normal Bowel Sounds, Non Tender, Flat, Soft Genitourinary: Yes: Within Normal Limits Back: Yes: Normal Inspection Musculoskeletal: Yes: full range of Motion, Other (Gait is unsteady) Extremities: Yes: Normal Capillary Refill, Normal Range of Motion, Non-Tender, Tremors Neurological: Yes: Fully Oriented, Alert, Motor Strength 5/5, Normal Mood/Affect Integumentary: Yes: Normal Color, Dry, Warm Lymphatic: Yes: Within Normal Limits - Diagnostic (1) History of angina pectoris Current Visit: Yes Status: Chronic (2) Enlarged prostate Current Visit: Yes Status: Chronic (3) Constipation Current Visit: Yes Status: Chronic Qualifiers: Constipation type: unspecified constipation type Qualified Code(s): K59.00 - Constipation, unspecified (4) Nicotine dependence Current Visit: Yes Status: Acute Qualifiers: Nicotine product type: cigarettes Substance use status: in withdrawal Qualified Code(s): F17.213 - Nicotine dependence, cigarettes, with withdrawal (5) Cocaine dependence, uncomplicated Current Visit: No Status: Chronic (6) Hypercholesterolemia Current Visit: Yes Status: Chronic (7) Parkinson disease Current Visit: Yes Status: Chronic Cleared for Admission [facility] - Detox or Rehab [facility] Level of Care: Medically Supervised Detox Regimen/Protocol: Not Applicable Claeared for Rehab Admission: Yes [facility] Breath Alcohol Content Breath Alcohol Content: 0 Urine Drug Screen - Results Drug Screen Negative: No Urine Drug Screen Results: [facility]-Cocaine Inpatient Rehab Admission - Initial Determination Are CD services needed?: Yes Free of communicable disease: Yes Not in need of hospitalization: Yes - Rehab Admission Criteria Previous failed treatment: Yes Poor recovery environment: Yes Comorbidities: Yes Lacks judgement: No Patient is meeting Inpatient Rehab admission criteria:: Yes
[2018-02-03] MEDS ORDERED: NICOTINE POLACRILEX 2 MG GUM BC PRN (18:55)
[2018-02-03] MEDS ORDERED: MENTHOL/PHENOL 1 EACH UD MM PRN (18:55)
[2018-02-03] MEDS ORDERED: LOPERAMIDE HCL 2 MG CAPSULE PO PRN (18:55)
[2018-02-03] MEDS ORDERED: guaiFENesin/D-METHORPHAN HB 10 ML UNIT-DOSE CUPS PO PRN (18:55)
[2018-02-03] MEDS ORDERED: MAGNESIUM CITRATE 300 ML BOTTLE PO PRN (18:55)
[2018-02-03] MEDS ORDERED: MAGNESIUM HYDROX 2400MG/30ML ORAL SUSPENSION 30 ML CUP PO PRN (18:55)
[2018-02-03] MEDS ORDERED: ACETAMINOPHEN 325 MG TABLET (FP) PO PRN (18:55)
[2018-02-03] MEDS ORDERED: MELATONIN 5 MG TABLETS PO PRN (22:00)
[2018-02-03] MEDS: ATORVASTATIN CA 20 MG TABLET (FP) PO SCH (22:03)
[2018-02-03] MEDS: THIAMINE HCL 100 MG TABLET (FP) PO SCH (22:03)
[2018-02-03] MEDS: DOCUSATE SODIUM 100 MG CAPSULE (FP) PO SCH (22:03)
--- NOTE | 2018-02-03 22:26 | PN ---
[facility] Progress Note Note: Psychiatry Attending's stone paver note : Called for medications orders. For Toby Bethea. New admission to [address] [place] [address]. From [facility].Self-referred. 57 y/o male with : PTSD Schizophrenia Cocaine dependence Followed at [facility]. Managed on a regimen of : seroquel 100 mg po am seroquel 200 mg po hs As per self-report. Spoke to patient via telephone. Records revisited ([facility]). Patient endorses adherence. Plan : Seroquel 100 mg po ONE dose.Ordered. Side effects/benefits discussed with patient. Consent (verbal): given to MD. Dose adjustment in AM by unit psychiatrist.
[2018-02-04] MEDS: RANOLAZINE E.R. 500 MG TABLET (FP) PO SCH ×3 (00:40→23:29)
[2018-02-04] MEDS: CARBIDOPA/LEVODOPA 10/100 TABLET (FP) PO SCH ×4 (00:41→21:11)
[2018-02-04 01:50] LABS: URINE APPEARANCE CLEAR; URINE BILIRUBIN NEGATIVE (<2.0 mg/dL); URINE BLOOD 1+ (NEGATIVE); URINE COLOR LTYELLOW; URINE GLUCOSE (UA) NEGATIVE (NEGATIVE); URINE KETONE NEGATIVE (NEGATIVE); URINE LEUK ESTERASE NEGATIVE (NEGATIVE); URINE NITRITE NEGATIVE (NEGATIVE); URINE PROTEIN NEGATIVE (NEGATIVE); URINE UROBILINOGEN NEGATIVE mg/dL (0.2-1.0)
[2018-02-04 02:08] LABS: EPI CELLS RARE /HPF (FEW)
[2018-02-04] MEDS: DOCUSATE SODIUM 100 MG CAPSULE (FP) PO SCH ×3 (06:00→21:11)
[2018-02-04] MEDS: TAMSULOSIN HCL 0.4 MG CAP.ER.24H (FP) PO SCH (09:25)
[2018-02-04] MEDS: ASPIRIN 81 MG CHEWABLE TABLETS PO SCH (09:57)
[2018-02-04] MEDS: IBUPROFEN 400 MG TABLET (FP) PO PRN (09:58)
[2018-02-04] MEDS: MULTIVITAMINS (DAILY MVI) TABLET (FP) PO SCH (10:52)
--- NOTE | 2018-02-04 13:29 | EKG ---
Test Reason : Blood Pressure : / mmHG Vent. Rate : 069 BPM Atrial Rate : 069 BPM P-R Int : 158 ms QRS Dur : 082 ms QT Int : 404 ms P-R-T Axes : 071 -01 029 degrees QTc Int : 432 ms POOR DATA QUALITY, INTERPRETATION MAY BE ADVERSELY AFFECTED NORMAL SINUS RHYTHM NORMAL ECG WHEN COMPARED WITH ECG OF 23-JUL-2017 07:25, NO SIGNIFICANT CHANGE WAS FOUND Confirmed by MD BRANDI, LAURA ([id number]) on 02/04/2018 1:29:31 PM Referred By: Confirmed By:LAURA PAZ MD
[2018-02-04 13:36] LABS: HEMATOCRIT 44.5 % (35.4-49); HEMOGLOBIN 14.7 GM/dL (11.7-16.9); MCHC 33.1 g/dl (32.0-35.9); MEAN CELL VOLUME 96.7 fl (80-96); MEAN PLT VOLUME 8.6 fl (7.5-11.1); PLATELET COUNT 173 K/MM3 (134-434); RDW 13.4 % (11.9-15.9); WHITE BLOOD COUNT 4.8 K/mm3 (4.0-10.0)
[2018-02-04 14:24] LABS: ALBUMIN 3.6 g/dl (3.4-5.0); ANION GAP 7 (8-16); BLOOD UREA NITROGEN 23 mg/dL (7-18); CHLORIDE 105 mmol/L (98-107); CO2 30 mmol/L (21-32); GLUCOSE,RANDOM 91 mg/dL (74-106); POTASSIUM 4.1 mmol/L (3.5-5.1); SODIUM 142 mmol/L (136-145)
[2018-02-04 14:31] LABS: ALK PHOS 120 U/L (45-117); BILIRUBIN,TOTAL 0.4 mg/dL (0.2-1.0); CREATININE 1.2 mg/dL (0.7-1.3); SGOT/AST 13 U/L (15-37); SGPT/ALT 16 U/L (12-78); TOT PROT 6.4 g/dl (6.4-8.2)
--- NOTE | 2018-02-04 16:10 | HP ---
Psychiatrist Admission - Data Date of interview: 02/04/18 Admission source: [facility] Identifying data: Patient is a 57 year old, , without kids, retired ( receiving pension, and domiciled. This is one of multiple admissions for patient. Pt. admitted to for crack dependence. Medical History: hypertension, Parkinsons Disease dx 3 yrs ago Psychiatric History: Patient reports multiple psychiatric hospitalizations, most recently ten years at [facility]. Pt. is also known to the [facility]. Pt.served in the [employer] from [id number] and [id number].Diagnosis of PTSD ( wait war) and Schizophrenia. Patient was first diagnosed with schizophrenia in 1984 which was also patient's first encounter with a psychiatrist. Pt. denies current psychiatric outpatient care but is followed by his PCP at the [facility] in [facility]. Pt. is currently prescribed seroquel 100mg PO daily + seroquel 200 mg qhs by his PCP. Patient has taken Paxil 20mg but has not accepted medication in several months. Patient reports h/o one suicide attempt ten years overdose on haldol. Pt. currently denies suicidal and homicidal ideation. Physical/Sexual Abuse/Trauma History: Denies. Vital Signs: Vital Signs - 24 hr 02/03/18 02/03/18 02/04/18 16:46 22:00 03:30 Temperature 97.1 F L 98.5 F Pulse Rate 65 71 Respiratory 20 18 18 Rate Blood Pressure 124/75 127/78 02/04/18 06:59 Temperature 97.6 F Pulse Rate 61 Respiratory 18 Rate Blood Pressure 119/82 Allergies/Adverse Reactions: Allergies Allergy/AdvReac Type Severity Reaction Status Date / Time No Known Allergies Allergy Verified 02/03/18 17:17 Date of last physical exam: 02/03/18 Concur with the findings of this exam: Yes - Substance Abuse/Tx History Hx Alcohol Use: No Hx Substance Use: Yes (crack/cocaine - 1 gram per day.) Substance Use Type: Cocaine Hx Substance Use Treatment: Yes ([facility] rehab on 08/2018) Mental Status Exam - Mental Status Exam Alert and Oriented to: Time, Place, Person Cognitive Function: Good Patient Appearance: Well Groomed Patient Behavior: Appropriate, Cooperative Thought Process: Goal Oriented Thought Disorder: Not Present Hallucinations: Denies Suicidal Ideation: Denies Homicidal Ideation: Denies Insight/Judgement: Poor Sleep: Poorly Appetite: Fair Muscle strength/Tone: Normal Gait/Station: Normal Psychiatric Findings - Problem List ([place] 1, 2,3) (1) PTSD (post-traumatic stress disorder) Current Visit: Yes Status: Suspected (2) Schizoaffective disorder Current Visit: Yes Status: Acute (3) Nicotine dependence Current Visit: Yes Status: Chronic Qualifiers: Nicotine product type: cigarettes Substance use status: in withdrawal Qualified Code(s): F17.213 - Nicotine dependence, cigarettes, with withdrawal (4) Cocaine dependence Current Visit: Yes Status: Chronic - Initial Treatment Plan Initial Treatment Plan: Psychoeducation provided. Detoxification in progress. Seroquel 100mg PO daily + Seroquel 200mg qhs. Benefits and side effects discussed. Verbal consent given. Will continue to monitor.
[2018-02-04] MEDS: hydrOXYzine PAMOATE 50 MG CAPSULE (FP) PO PRN (16:57)
[2018-02-04] MEDS: ATORVASTATIN CA 20 MG TABLET (FP) PO SCH (21:11)
[2018-02-04] MEDS ORDERED: QUEtiapine FUMARATE 200 MG TABLET PO SCH (22:00)
[2018-02-04] MEDS: THIAMINE HCL 100 MG TABLET (FP) PO SCH (22:05)
[2018-02-04] MEDS: QUEtiapine FUMARATE 100 MG TABLET (FP) PO SCH (23:30)
[2018-02-05] MEDS: QUEtiapine FUMARATE 100 MG TABLET (FP) PO SCH ×3 (00:11→21:02)
[2018-02-05] MEDS: CARBIDOPA/LEVODOPA 10/100 TABLET (FP) PO SCH ×3 (06:19→21:02)
[2018-02-05] MEDS: DOCUSATE SODIUM 100 MG CAPSULE (FP) PO SCH ×3 (06:19→21:02)
[2018-02-05] MEDS: IBUPROFEN 400 MG TABLET (FP) PO PRN ×2 (06:19→21:03)
[2018-02-05] MEDS: hydrOXYzine PAMOATE 50 MG CAPSULE (FP) PO PRN ×3 (06:20→21:04)
[2018-02-05] MEDS: TAMSULOSIN HCL 0.4 MG CAP.ER.24H (FP) PO SCH (09:00)
[2018-02-05] MEDS: RANOLAZINE E.R. 500 MG TABLET (FP) PO SCH ×2 (09:31→21:02)
[2018-02-05] MEDS: ASPIRIN 81 MG CHEWABLE TABLETS PO SCH (09:31)
[2018-02-05] MEDS: MULTIVITAMINS (DAILY MVI) TABLET (FP) PO SCH (09:32)
[2018-02-05] MEDS: MAG HYDROX/AL HYDROX/SIMETH 30 ML UNIT-DOSE CUP PO PRN ×2 (09:33→17:47)
--- NOTE | 2018-02-05 13:19 | PN ---
[facility] Progress Note Note: UA shows +blood. Negative for Leukocytes and bacteria. Will repeat UA in 2 days. Continue to monitor clinically.
[2018-02-05] MEDS: THIAMINE HCL 100 MG TABLET (FP) PO SCH (21:02)
[2018-02-05] MEDS: ATORVASTATIN CA 20 MG TABLET (FP) PO SCH (21:02)
[2018-02-05 23:09] LABS: URINE APPEARANCE CLEAR; URINE BILIRUBIN NEGATIVE (<2.0 mg/dL); URINE BLOOD 1+ (NEGATIVE); URINE COLOR DKYELLOW; URINE GLUCOSE (UA) NEGATIVE (NEGATIVE); URINE KETONE TRACE (NEGATIVE); URINE LEUK ESTERASE NEGATIVE (NEGATIVE); URINE NITRITE NEGATIVE (NEGATIVE); URINE PROTEIN NEGATIVE (NEGATIVE)
[2018-02-05 23:28] LABS: EPI CELLS RARE /HPF (FEW); URINE MUCUS RARE
[2018-02-06] MEDS: hydrOXYzine PAMOATE 50 MG CAPSULE (FP) PO PRN ×2 (06:29→21:22)
[2018-02-06] MEDS: CARBIDOPA/LEVODOPA 10/100 TABLET (FP) PO SCH ×3 (06:29→21:22)
[2018-02-06] MEDS: DOCUSATE SODIUM 100 MG CAPSULE (FP) PO SCH ×3 (06:29→21:21)
[2018-02-06] MEDS: IBUPROFEN 400 MG TABLET (FP) PO PRN ×3 (06:30→21:22)
[2018-02-06] MEDS: TAMSULOSIN HCL 0.4 MG CAP.ER.24H (FP) PO SCH (09:30)
[2018-02-06] MEDS: ASPIRIN 81 MG CHEWABLE TABLETS PO SCH (09:57)
[2018-02-06] MEDS: RANOLAZINE E.R. 500 MG TABLET (FP) PO SCH ×2 (09:58→21:22)
[2018-02-06] MEDS: MULTIVITAMINS (DAILY MVI) TABLET (FP) PO SCH (09:58)
[2018-02-06] MEDS: QUEtiapine FUMARATE 100 MG TABLET (FP) PO SCH ×2 (09:58→21:22)
[2018-02-06] MEDS: MAG HYDROX/AL HYDROX/SIMETH 30 ML UNIT-DOSE CUP PO PRN ×2 (14:19→21:22)
[2018-02-06] MEDS: THIAMINE HCL 100 MG TABLET (FP) PO SCH (21:21)
[2018-02-06] MEDS: ATORVASTATIN CA 20 MG TABLET (FP) PO SCH (21:21)
[2018-02-07] MEDS: CARBIDOPA/LEVODOPA 10/100 TABLET (FP) PO SCH ×3 (06:58→21:40)
[2018-02-07] MEDS: DOCUSATE SODIUM 100 MG CAPSULE (FP) PO SCH ×3 (06:58→21:40)
[2018-02-07] MEDS: IBUPROFEN 400 MG TABLET (FP) PO PRN ×3 (06:59→21:40)
[2018-02-07] MEDS: hydrOXYzine PAMOATE 50 MG CAPSULE (FP) PO PRN ×2 (06:59→14:42)
[2018-02-07] MEDS: MULTIVITAMINS (DAILY MVI) TABLET (FP) PO SCH (09:41)
[2018-02-07] MEDS: RANOLAZINE E.R. 500 MG TABLET (FP) PO SCH ×2 (09:41→21:40)
[2018-02-07] MEDS: ASPIRIN 81 MG CHEWABLE TABLETS PO SCH (09:41)
[2018-02-07] MEDS: TAMSULOSIN HCL 0.4 MG CAP.ER.24H (FP) PO SCH (09:41)
[2018-02-07] MEDS: QUEtiapine FUMARATE 100 MG TABLET (FP) PO SCH ×2 (09:41→21:40)
[2018-02-07 14:40] LABS: URINE APPEARANCE CLEAR; URINE BILIRUBIN NEGATIVE (<2.0 mg/dL); URINE BLOOD NEGATIVE (NEGATIVE); URINE COLOR YELLOW; URINE GLUCOSE (UA) NEGATIVE (NEGATIVE); URINE KETONE TRACE (NEGATIVE); URINE LEUK ESTERASE NEGATIVE (NEGATIVE); URINE NITRITE NEGATIVE (NEGATIVE); URINE PROTEIN NEGATIVE (NEGATIVE); URINE UROBILINOGEN NEGATIVE mg/dL (0.2-1.0)
[2018-02-07] MEDS: ATORVASTATIN CA 20 MG TABLET (FP) PO SCH (21:40)
[2018-02-07] MEDS: THIAMINE HCL 100 MG TABLET (FP) PO SCH (21:41)
[2018-02-08] MEDS: DOCUSATE SODIUM 100 MG CAPSULE (FP) PO SCH ×3 (06:53→21:06)
[2018-02-08] MEDS: hydrOXYzine PAMOATE 50 MG CAPSULE (FP) PO PRN ×2 (06:53→21:06)
[2018-02-08] MEDS: CARBIDOPA/LEVODOPA 10/100 TABLET (FP) PO SCH ×3 (06:54→21:06)
[2018-02-08] MEDS: IBUPROFEN 400 MG TABLET (FP) PO PRN ×3 (06:54→21:06)
[2018-02-08] MEDS: TAMSULOSIN HCL 0.4 MG CAP.ER.24H (FP) PO SCH (08:35)
[2018-02-08] MEDS: ASPIRIN 81 MG CHEWABLE TABLETS PO SCH (09:48)
[2018-02-08] MEDS: QUEtiapine FUMARATE 100 MG TABLET (FP) PO SCH ×2 (09:49→21:06)
[2018-02-08] MEDS: RANOLAZINE E.R. 500 MG TABLET (FP) PO SCH ×2 (09:50→21:06)
[2018-02-08] MEDS: MULTIVITAMINS (DAILY MVI) TABLET (FP) PO SCH (09:50)
[2018-02-08] MEDS: THIAMINE HCL 100 MG TABLET (FP) PO SCH (21:06)
[2018-02-08] MEDS: ATORVASTATIN CA 20 MG TABLET (FP) PO SCH (21:06)
[2018-02-09] MEDS: IBUPROFEN 400 MG TABLET (FP) PO PRN ×3 (06:16→21:05)
[2018-02-09] MEDS: DOCUSATE SODIUM 100 MG CAPSULE (FP) PO SCH ×3 (06:16→21:04)
[2018-02-09] MEDS: hydrOXYzine PAMOATE 50 MG CAPSULE (FP) PO PRN ×2 (06:16→21:04)
[2018-02-09] MEDS: CARBIDOPA/LEVODOPA 10/100 TABLET (FP) PO SCH ×3 (06:16→21:05)
[2018-02-09] MEDS: TAMSULOSIN HCL 0.4 MG CAP.ER.24H (FP) PO SCH (09:00)
[2018-02-09] MEDS: ASPIRIN 81 MG CHEWABLE TABLETS PO SCH (09:47)
[2018-02-09] MEDS: QUEtiapine FUMARATE 100 MG TABLET (FP) PO SCH ×2 (09:47→21:04)
[2018-02-09] MEDS: RANOLAZINE E.R. 500 MG TABLET (FP) PO SCH ×2 (09:48→21:06)
[2018-02-09] MEDS: MULTIVITAMINS (DAILY MVI) TABLET (FP) PO SCH (09:51)
[2018-02-09] MEDS: ATORVASTATIN CA 20 MG TABLET (FP) PO SCH (21:04)
[2018-02-09] MEDS: THIAMINE HCL 100 MG TABLET (FP) PO SCH (21:05)
[2018-02-10] MEDS: CARBIDOPA/LEVODOPA 10/100 TABLET (FP) PO SCH ×3 (05:54→21:07)
[2018-02-10] MEDS: DOCUSATE SODIUM 100 MG CAPSULE (FP) PO SCH ×3 (05:54→21:07)
[2018-02-10] MEDS: IBUPROFEN 400 MG TABLET (FP) PO PRN ×3 (05:56→21:09)
[2018-02-10] MEDS: TAMSULOSIN HCL 0.4 MG CAP.ER.24H (FP) PO SCH (09:30)
[2018-02-10] MEDS: RANOLAZINE E.R. 500 MG TABLET (FP) PO SCH ×2 (09:44→21:07)
[2018-02-10] MEDS: QUEtiapine FUMARATE 100 MG TABLET (FP) PO SCH ×2 (09:44→21:07)
[2018-02-10] MEDS: ASPIRIN 81 MG CHEWABLE TABLETS PO SCH (09:44)
[2018-02-10] MEDS: MULTIVITAMINS (DAILY MVI) TABLET (FP) PO SCH (10:42)
[2018-02-10] MEDS: MAG HYDROX/AL HYDROX/SIMETH 30 ML UNIT-DOSE CUP PO PRN (16:39)
[2018-02-10] MEDS: THIAMINE HCL 100 MG TABLET (FP) PO SCH (21:06)
[2018-02-10] MEDS: ATORVASTATIN CA 20 MG TABLET (FP) PO SCH (21:07)
[2018-02-10] MEDS: P-EPHED 60MG/TRIPROLIDI 2.5MG TABLET PO PRN (21:08)
[2018-02-11 06:35] VITALS: PULSE 67
[2018-02-11] MEDS: CARBIDOPA/LEVODOPA 10/100 TABLET (FP) PO SCH ×3 (06:40→21:14)
[2018-02-11] MEDS: DOCUSATE SODIUM 100 MG CAPSULE (FP) PO SCH ×3 (06:40→21:13)
[2018-02-11] MEDS: hydrOXYzine PAMOATE 50 MG CAPSULE (FP) PO PRN ×2 (06:41→21:12)
[2018-02-11] MEDS: IBUPROFEN 400 MG TABLET (FP) PO PRN ×2 (06:41→21:13)
[2018-02-11] MEDS: TAMSULOSIN HCL 0.4 MG CAP.ER.24H (FP) PO SCH (09:30)
[2018-02-11] MEDS: ASPIRIN 81 MG CHEWABLE TABLETS PO SCH (09:50)
[2018-02-11] MEDS: RANOLAZINE E.R. 500 MG TABLET (FP) PO SCH ×2 (09:51→21:13)
[2018-02-11] MEDS: QUEtiapine FUMARATE 100 MG TABLET (FP) PO SCH ×2 (09:51→21:12)
[2018-02-11] MEDS: MULTIVITAMINS (DAILY MVI) TABLET (FP) PO SCH (09:51)
[2018-02-11] MEDS: P-EPHED 60MG/TRIPROLIDI 2.5MG TABLET PO PRN ×2 (14:14→21:44)
[2018-02-11] MEDS: THIAMINE HCL 100 MG TABLET (FP) PO SCH (21:12)
[2018-02-11] MEDS: ATORVASTATIN CA 20 MG TABLET (FP) PO SCH (21:12)
[2018-02-12 06:31] VITALS: BP 127/76; TEMP 97.9
[2018-02-12] MEDS: CARBIDOPA/LEVODOPA 10/100 TABLET (FP) PO SCH ×3 (06:36→21:25)
[2018-02-12] MEDS: IBUPROFEN 400 MG TABLET (FP) PO PRN ×2 (06:37→21:25)
[2018-02-12] MEDS: DOCUSATE SODIUM 100 MG CAPSULE (FP) PO SCH ×3 (06:37→21:25)
[2018-02-12] MEDS: hydrOXYzine PAMOATE 50 MG CAPSULE (FP) PO PRN ×2 (06:37→21:25)
[2018-02-12] MEDS: P-EPHED 60MG/TRIPROLIDI 2.5MG TABLET PO PRN ×2 (06:43→21:27)
[2018-02-12] MEDS: TAMSULOSIN HCL 0.4 MG CAP.ER.24H (FP) PO SCH (09:00)
[2018-02-12] MEDS: QUEtiapine FUMARATE 100 MG TABLET (FP) PO SCH ×2 (09:56→21:25)
[2018-02-12] MEDS: MULTIVITAMINS (DAILY MVI) TABLET (FP) PO SCH (09:57)
[2018-02-12] MEDS: ASPIRIN 81 MG CHEWABLE TABLETS PO SCH (09:57)
[2018-02-12] MEDS: RANOLAZINE E.R. 500 MG TABLET (FP) PO SCH ×2 (09:57→21:25)
--- NOTE | 2018-02-12 15:04 | PN ---
S Progress Note Note: Patient c/o LBP, dull ache, level 6/10. Non-radiating. Vital Signs Temperature 97.9 F 02/12/18 06:30 Pulse Rate 67 02/12/18 06:30 Respiratory Rate 16 02/12/18 06:30 Blood Pressure 127/76 02/12/18 06:30 O2 Sat by Pulse Oximetry (%) obj: general: alert and oriented x 3. In no acute distress. Ambulates with cane. Skin: warm and dry ext: full ROM, no edema. +tenderness to L spine. A/P: LBP Will start Flexeril 10mg TID continue to monitor clinically
[2018-02-12] MEDS: THIAMINE HCL 100 MG TABLET (FP) PO SCH (21:25)
[2018-02-12] MEDS: CYCLOBENZAPRINE HCL 10 MG TABLET (FP) PO SCH (21:25)
[2018-02-12] MEDS: ATORVASTATIN CA 20 MG TABLET (FP) PO SCH (21:25)
--- NOTE | 2018-02-13 09:40 | PN ---
Psychiatric Progress Note Vital Signs: Vital Signs Period Temp Pulse Resp BP Sys/Fisher Pulse Ox Last 24 Hr 18 Date of Session: 02/13/18 Chief Complaint:: "discharge" HPI: Patient was admitted to for cocaine dependence. ROS: hypertension, Parkinsons Disease dx 3 yrs ago Current Medications: Active Medications Generic Name Dose Route Start Last Admin Trade Name Freq PRN Reason Stop Dose Admin Acetaminophen 650 mg 02/03/18 18:55 Tylenol - PO Q4H PRN PAIN OR FEVER Al Hydroxide/Mg Hydroxide 30 ml 02/03/18 18:55 02/10/18 16:39 Mylanta Oral Suspension - PO 30 ml Q6H PRN Administration DYSPEPSIA Aspirin 81 mg 02/04/18 10:00 02/12/18 09:57 Asa - PO 81 mg DAILY ABISAI Administration Atorvastatin Calcium 20 mg 02/03/18 22:00 02/12/18 21:25 Lipitor - PO 20 mg HS ABISAI Administration Carbidopa/Levodopa 2 each 02/03/18 22:00 02/12/18 21:25 Sinemet 10/100 - PO 2 each TID ABISAI Administration Cyclobenzaprine HCl 10 mg 02/12/18 22:00 02/12/18 21:25 Flexeril - PO 10 mg TID ABISAI Administration Docusate Sodium 100 mg 02/03/18 22:00 02/12/18 21:25 Colace - PO 100 mg TID ABISAI Administration Eucalyptus/Menthol/Phenol/Sorbitol 1 each 02/03/18 18:55 Cepastat Lozenge - MM Q4H PRN SORE THROAT Guaifenesin 10 ml 02/03/18 18:55 Robitussin Dm - PO Q6H PRN COUGH Hydroxyzine Pamoate 50 mg 02/03/18 18:55 02/12/18 21:25 Vistaril - PO 50 mg Q4H PRN Administration AGITATION Ibuprofen 400 mg 02/03/18 18:55 02/12/18 21:25 Motrin - PO 400 mg Q6H PRN Administration Pain level 4-6 Loperamide HCl 4 mg 02/03/18 18:55 Imodium - PO Q6H PRN DIARRHEA Magnesium Citrate 300 ml 02/03/18 18:55 Citroma - PO Q48H PRN CONSTIPATION Magnesium Hydroxide 30 ml 02/03/18 18:55 Milk Of Magnesia - PO DAILY PRN CONSTIPATION Melatonin 5 mg 02/03/18 22:00 02/04/18 02:10 Melatonin PO 5 mg HS PRN Administration INSOMNIA Multivitamins/Minerals/Vitamin C 1 tab 02/04/18 10:00 02/12/18 09:57 Tab-A-Vit - PO 1 tab DAILY ABISAI Administration Nicotine Polacrilex 2 mg 02/03/18 18:55 Nicorette Gum - BC Q2H PRN NICOTINE REPLACEMENT RX Pseudoephedrine/Triprolidine 1 combo 02/03/18 18:55 02/12/18 21:27 Actifed - PO 1 combo TID PRN Administration NASAL CONGESTION Quetiapine Fumarate 100 mg 02/04/18 22:16 02/12/18 21:25 Seroquel - PO 100 mg HS ABISAI Administration Quetiapine Fumarate 100 mg 02/05/18 10:00 02/12/18 09:56 Seroquel - PO 100 mg DAILY ABISAI Administration Ranolazine 500 mg 02/03/18 22:00 02/12/18 21:25 Ranexa - PO 500 mg BID ABISAI Administration Tamsulosin HCl 0.4 mg 02/04/18 08:30 02/12/18 09:00 Flomax - PO 0.4 mg DAILY@0830 ABISAI Administration Thiamine HCl 100 mg 02/03/18 22:00 02/12/18 21:25 Vitamin B1 - PO 100 mg HS ABISAI Administration Medication(s) Change(s): No. Current Side Effect: No Lab tests ordered: No Lab tests reviewed: Yes Provider note:: Patient will be given an early discharge on 02/13/18. Pt. has met his treatment goals and will continue to address his issues at the [place] outpatient clinic in the [place], [place]. Patient is able to identify behaviors which contribute to relapse and has developed skills he can utilize to maintain recovery. Patient reports finding Seroquel 100mg effective. Pt. reports having enough seroquel at home before his next appointment and therefore is refusing a prescription of seroquel. Pt. is stable for discharge. Total face to face time:: 35 Mental Status Exam - Mental Status Exam Alert and Oriented to: Time, Place, Person Cognitive Function: Good Patient Appearance: Well Groomed Mood: Hopeful Affect: Mood Congruent Patient Behavior: Appropriate, Cooperative Speech Pattern: Delayed (Patient has a speech disorder) Voice Loudness: Normal Thought Process: Goal Oriented Thought Disorder: Not Present Hallucinations: Denies Suicidal Ideation: Denies Homicidal Ideation: Denies Insight/Judgement: Good Sleep: Well Appetite: Good Muscle strength/Tone: Normal Gait/Station: Normal Psychiatric Treatment Plan - Problem List (1) PTSD (post-traumatic stress disorder) Current Visit: Yes (2) Schizoaffective disorder Current Visit: Yes (3) Nicotine dependence Current Visit: Yes Qualifiers: Nicotine product type: cigarettes Substance use status: in withdrawal Qualified Code(s): F17.213 - Nicotine dependence, cigarettes, with withdrawal (4) Cocaine dependence Current Visit: Yes
[2018-02-13] MEDS: CYCLOBENZAPRINE HCL 10 MG TABLET (FP) PO SCH (09:42)
[2018-02-13] MEDS: DOCUSATE SODIUM 100 MG CAPSULE (FP) PO SCH (09:42)
[2018-02-13] MEDS: CARBIDOPA/LEVODOPA 10/100 TABLET (FP) PO SCH (09:43)
[2018-02-13] MEDS: TAMSULOSIN HCL 0.4 MG CAP.ER.24H (FP) PO SCH (09:45)
[2018-02-13] MEDS: ASPIRIN 81 MG CHEWABLE TABLETS PO SCH (09:54)
[2018-02-13] MEDS: QUEtiapine FUMARATE 100 MG TABLET (FP) PO SCH (09:55)
[2018-02-13] MEDS: MULTIVITAMINS (DAILY MVI) TABLET (FP) PO SCH (09:56)
[2018-02-13] MEDS: RANOLAZINE E.R. 500 MG TABLET (FP) PO SCH (09:57)
== END 2018-02-13 11:35 | disposition home or self-care (01) | DRG 895 ==
LOC: YASAS 14:16 → Y5N 19:27
PROVIDERS: ADMIT Psychiatry & Neurology Psychiatry; ATTEND Psychiatry & Neurology Psychiatry
PROC: HZ42ZZZ Group Counseling for Substance Abuse Treatment, Cognitive-Behavioral (ICD-10-PCS; principal; 2018-02-03)
DX: F14.20 Cocaine dependence, uncomplicated (principal); F17.213 Nicotine dependence, cigarettes, with withdrawal; F43.10 Post-traumatic stress disorder, unspecified; F25.9 Schizoaffective disorder, unspecified; I10 Essential (primary) hypertension; G20 Parkinson's disease; M54.5 Low back pain; N40.0 Benign prostatic hyperplasia without lower urinary tract symptoms; K59.00 Constipation, unspecified; E78.00 Pure hypercholesterolemia, unspecified
CPT/HCPCS: 36415; 80053; 81003; 81015; 85027; 86593; 93005; 93010

== ENCOUNTER 2018-08-04 15:01 | Emergency (ER) | payer OTHER ==
[2018-08-04 15:11] VITALS: BP 111/54; PULSE 88; TEMP 98.8; BMI 28.5
--- NOTE | 2018-08-04 15:12 | PDOC ---
Rapid Medical Evaluation Chief Complaint: Back Pain Time Seen by Provider: 08/04/18 15:06 Medical Evaluation: Allergies Allergy/AdvReac Type Severity Reaction Status Date / Time No Known Allergies Allergy Verified 02/03/18 17:17 08/04/18 15:08 I have performed a brief in-person evaluation of this patient. The patient presents with a chief complaint of:low back pain / acute on chronic - was seen at [facility] x 2 and given Percocet with not musch relief. Denies trauma/ exercise changes , Has Parkinsons Spasm that is worsing Pertinent physical exam findings: Intension movements and spasm , I have ordered the following: UA The patient will proceed to the ED for further evaluation. 08/04/18 15:10
[2018-08-04 15:25] LABS: URINE APPEARANCE CLEAR; URINE BILIRUBIN NEGATIVE (<2.0 mg/dL); URINE COLOR YELLOW; URINE GLUCOSE (UA) NEGATIVE (NEGATIVE); URINE KETONE TRACE (NEGATIVE); URINE LEUK ESTERASE NEGATIVE (NEGATIVE); URINE NITRITE NEGATIVE (NEGATIVE); URINE PROTEIN NEGATIVE (NEGATIVE); URINE UROBILINOGEN 4.0 E.U/dl mg/dL (0.2-1.0)
--- NOTE | 2018-08-04 16:23 | PDOC ---
History of Present Illness - General Chief Complaint: Pain Stated Complaint: HIP PAIN Time Seen by Provider: 08/04/18 15:06 History Source: Patient Exam Limitations: Clinical Condition - History of Present Illness Initial Comments: 08/04/18 16:17 Patient with history of Parkinson's. Hyperlipidemia. PTSD and chronic back pain present with complaint of 2 weeks history of right hip pain which has been worse in the last 3 days. Patient was seen in [facility] 3 days ago and again yesterday for same symptoms and was told knee he has osteoporosis and discharged home on Percocets and Motrin by report pain still persists. Patient denies any fall or injury to right hip. Patient reported he was told he has bulging disc in the lower back in the [facility] and is being seen by pain management. Patient report has never seen orthopedics for his symptoms. Patient also reported jerking from Parkinson's disease which is worsening . patient denies any other symptoms Timing/Duration: other (2 weeks) Past History - Past Medical History Allergies/Adverse Reactions: Allergies Allergy/AdvReac Type Severity Reaction Status Date / Time No Known Allergies Allergy Verified 08/04/18 15:09 Home Medications: Ambulatory Orders Paroxetine HCl [Paxil -] 20 mg PO DAILY #30 tablet 08/16/17 Quetiapine Fumarate [Seroquel -] 200 mg PO HS #30 tablet 08/16/17 Atorvastatin Ca [Lipitor] 20 mg PO HS #30 tablet 02/13/18 Carbidopa/Levodopa 10/100 [Sinemet 10/100 -] 2 each PO TID #180 tablet 02/13/18 Tamsulosin HCl [Flomax] 0.4 mg PO DAILY #30 cap 02/13/18 Lidocaine 5% Patch [Lidoderm -] 1 patch TP DAILY #30 patch 08/04/18 Oxycodone HCl 5 mg PO ASDIR 08/04/18 Topiramate 100 mg PO DAILY 08/04/18 Anemia: No Asthma: No Cancer: No Cardiac Disorders: No CVA: No COPD: No CHF: No Dementia: No Diabetes: No GI Disorders: Yes (No pills. Occ mylanta) Disorders: No HTN: Yes (With tx) Hypercholesterolemia: Yes Kidney Stones: Yes Liver Disease: No Psychiatric Problems: Yes (DEPRESSION,PTSD, ANXIETY.) Seizures: No Thyroid Disease: No Other medical history: Parkinson's disease, herniated disc - Surgical History Abdominal Surgery: No Appendectomy: No Cardiac Surgery: No Cholecystectomy: No Lung Surgery: No Neurologic Surgery: No Orthopedic Surgery: No - Reproductive History Testicular Surgery: No - Immunization History Td Vaccination: Yes TDAP Vaccination: Yes Immunization Up to Date: Yes - Suicide/Smoking/Psychosocial Hx Smoking History: Current every day smoker Have you smoked in the past 12 months: Yes Number of Cigarettes Smoked Daily: 6 If you are a former smoker, when did you quit?: 4 YRS AGO Cigars Per Day: 0 Information on smoking cessation initiated: No 'Breaking Loose' booklet given: 02/03/18 Hx Alcohol Use: No Drug/Substance Use Hx: Yes (crack/cocaine - 1 gram per day.) Substance Use Type: Cocaine Hx Substance Use Treatment: Yes ([facility] on 08/2018) Review of Systems - Review of Systems Able to Perform ROS?: Yes Is the patient limited Icelandic proficient: No Constitutional: No: Weakness HEENTM: No: Blurred Vision, Recent change in vision, Double Vision Respiratory: No: Symptoms reported Cardiac (ROS): No: Symptoms Reported ABD/GI: No: Symptoms Reported, Nausea, Vomiting : No: Dysuria, Frequency, Hematuria, Urgency Musculoskeletal: Yes: Back Pain (chronic back pain), Joint Pain (right hip). No : Joint Stiffness Neurological: No: Numbness, Paresthesia, Tingling All Other Systems: Reviewed and Negative *Physical Exam - Vital Signs Last Vital Signs Temp Pulse Resp BP Pulse Ox 98.8 F 88 18 111/54 L 95 08/04/18 15:09 08/04/18 15:09 08/04/18 15:09 08/04/18 15:09 08/04/18 15:09 - Physical Exam Comments: 08/04/18 16:21 GENERAL: Well developed, well nourished. Awake and alert. No acute distress. CARDIOVASCULAR: Regular rate and rhythm. No murmurs, rubs, or gallops. PULMONARY: No evidence of respiratory distress. Lungs clear to auscultation bilaterally. No wheezing, rales or rhonchi. ABDOMINAL: Soft. Non-tender. Non-distended. No rebound or guarding. No organomegaly. Normoactive bowel sounds MUSCULOSKELETAL : mild tenderness ASIS of right hip. mild tenderness over lower lumbar spine and paravertebral muscle of L4-S2. pain to right hip increase with laying down and straightening of RLE. No bony deformities EXTREMITIES: No cyanosis. No clubbing. No edema. No calf tenderness. SKIN: Warm and dry. Normal capillary refill. No rashes. No jaundice. NEUROLOGICAL: Alert, awake, appropriate. No motor deficits in the lower extremities. Gait is normal without ataxia. PSYCHIATRIC: Cooperative. Good eye contact. Appropriate mood and affect. General Appearance: Yes: Nourished, Appropriately Dressed. No: Apparent Distress Moderate Sedation - Procedure Monitoring Vital Signs: Procedure Monitoring Vital Signs Temperature 98.8 F 08/04/18 15:09 Pulse Rate 88 08/04/18 15:09 Respiratory Rate 18 08/04/18 15:09 Blood Pressure 111/54 L 08/04/18 15:09 O2 Sat by Pulse Oximetry (%) 95 08/04/18 15:09 ED Treatment Course - ADDITIONAL ORDERS Additional order review: Laboratory Results 08/04/18 15:15 Urine Color Yellow Urine Appearance Clear Urine pH 5.0 Ur Specific [place] 1.024 Urine Protein Negative Urine Glucose (UA) Negative Urine Ketones Trace H Urine Blood Negative Urine Nitrite Negative Urine Bilirubin Negative Urine Urobilinogen 4.0 e.u/dl Ur Leukocyte Esterase Negative - RADIOLOGY Radiology Studies Ordered: Category Date Time Status HIP-RIGHT [RAD] Stat Radiology 08/04/18 15:55 Ordered SPINE-LUMBAR SACRAL [RAD] Stat Radiology 08/04/18 15:55 Ordered Medical Decision Making - Medical Decision Making 08/04/18 16:23 Patient with history of Parkinson's disease, PTSD, chronic back pain presented with complaint of 2 weeks history of right hip pain which has been Worsening in the last 3 days. Patient has been seen twice by the [facility] for same symptoms and discharged home on NSAIDs and Percocet by report pain still persists. Exam significant for tenderness over anterior superior iliac spine and lower lumbar region. X-ray of lumbosacral and right hip ordered. Treat based on imaging results 08/04/18 17:20 x-ray of lumbasacral and right hip shows no acute fracture or dislocation. x- ray shows lose of space between L4 and L5, L5 and SI. mild arthritis changes to head of femur. patient stable for discharge to continue home prev prescribed home meds with orthopedics follow-up *DC/Admit/Observation/Transfer Diagnosis at time of Disposition: Right hip pain Chronic lower back pain Qualifiers: Back pain laterality: midline Sciatica presence: without sciatica Qualified Code(s): M54.5 - Low back pain; G89.29 - Other chronic pain - Discharge Dispostion Disposition: HOME Condition at time of disposition: Stable Decision to Admit order: No - Prescriptions Prescriptions: Lidocaine 5% Patch [Lidoderm -] 1 patch TP DAILY #30 patch - Referrals Referrals: Arcadio Flores MD [Staff Physician] - - Patient Instructions Additional Instructions: take previously prescribed pain meds as needed for pain. use prescribed lidocaine patch with pain meds as needed for pain. follow-up with referred orthopedics as soon as possible - Post Discharge Activity
[2018-08-04] MEDS ORDERED: KETOROLAC TROMETHAMINE 60 MG/2 ML VIAL IM ONE (17:14)
[2018-08-04] MEDS ORDERED: KETOROLAC TROMETHAMINE 60 MG/2 ML VIAL ONE (17:19)
== END 2018-08-04 17:28 | disposition home or self-care (01) ==
LOC: JERFT 15:01 → JER 15:01 → JERFT 17:28
PROC: 3E0233Z Introduction of Anti-inflammatory into Muscle, Percutaneous Approach (ICD-10-PCS; principal; 2018-08-04)
DX: M25.551 Pain in right hip (principal); M54.5 Low back pain; G89.29 Other chronic pain; G20 Parkinson's disease; F43.10 Post-traumatic stress disorder, unspecified
CPT/HCPCS: 72100-TC-FY; 73502-TC-RT; 81003; 96372; 99281-25

== ENCOUNTER 2024-01-17 16:25 | Inpatient (IN) | payer OTHER ==
[2024-01-17] MEDS ORDERED: ACETAMINOPHEN INJECTION 100 ML IVPB ONE (17:17)
[2024-01-17 17:25] LABS: BASO % 0.1 % (0-2.0); EOS % 0.2 % (0-4.5); HEMATOCRIT 41.9 % (35.4-49); HEMOGLOBIN 14.4 GM/dL (11.7-16.9); MCHC 34.3 g/dl (32.0-35.9); MEAN CELL VOLUME 90.4 fl (80-96); MEAN PLT VOLUME 8.3 fl (7.5-11.1); NEUT % 92.7 % (42.8-82.8); PLATELET COUNT 141 10^3/uL (134-434); RBC 4.63 M/mm3 (4.00-5.60); RDW 15.7 % (11.9-15.9); WHITE BLOOD COUNT 16.8 K/mm3 (4.0-10.0)
[2024-01-17] MEDS: ACETAMINOPHEN 1000 MG/100 ML BAG IVPB ONE (17:27)
[2024-01-17] MEDS: SODIUM CHLORIDE 0.9% 500 ML INFUS.BAG IV ONE ×3 (17:27→19:15)
[2024-01-17 17:49] LABS: ANISOCYTOSIS 1+; MACROCYTOSIS 0
[2024-01-17 17:51] LABS: POTASSIUM 4.2 mmol/L (3.5-5.1)
[2024-01-17 17:53] LABS: ALBUMIN 2.9 g/dl (3.4-5.0); BLOOD UREA NITROGEN 20.6 mg/dL (7-18); CALCIUM 9.2 mg/dL (8.5-10.1); MAGNESIUM 1.7 mg/dL (1.8-2.4)
[2024-01-17 17:56] LABS: CREATININE 1.5 mg/dL (0.55-1.3); PHOSPHOROUS 1.3 mg/dL (2.5-4.9)
[2024-01-17 17:58] LABS: TOT PROT 6.1 g/dl (6.4-8.2)
[2024-01-17 18:06] LABS: EPI CELLS 23 /uL (0-25.1); HYALINE CASTS 0 /uL (0-3.1); PH,URINE 6.5 (5.0-8.0); URINE APPEARANCE CLOUDY; URINE BACTERIA >9,000 /uL (0-1359); URINE BILIRUBIN NEGATIVE (NEGATIVE); URINE COLOR YELLOW; URINE GLUCOSE (UA) NEGATIVE (NEGATIVE); URINE KETONE TRACE (NEGATIVE); URINE LEUK ESTERASE 3+ (NEGATIVE); URINE NITRITE POSITIVE (NEGATIVE); URINE PROTEIN 1+ (NEGATIVE); URINE RBC 56 /uL (0-23.9); URINE UROBILINOGEN 4.0 E.U/dl mg/dL (0.2-1.0); URINE WBC 1894 /uL (0-25.8)
[2024-01-17] MEDS ORDERED: NAPH,MB-DB/K PH,MBDB POWDER PACKET ONE (18:24)
[2024-01-17 18:25] LABS: LACTIC ACID 2.8 mmol/L (0.4-2.0)
[2024-01-17] MEDS ORDERED: CEFTRIAXONE 1 GM/50 ML BAG ONE (18:25)
[2024-01-17] MEDS ORDERED: MAGNESIUM 1GM/D5W - 1 GM/100 ML IVPB IVPB ONE (18:25)
[2024-01-17] MEDS: NAPH,MB-DB/K PH,MBDB POWDER PACKET PO ONE (18:36)
[2024-01-17] MEDS: CEFTRIAXONE 1 GM in DEXTROSE 5%-WATER - 100 ML IVPB ONE (18:36)
[2024-01-17] MEDS: MAGNESIUM SULF 50% (8.12 MEQ/2 ML-1 GM VIAL) IVPB ONE (19:00)
[2024-01-17 19:22] LABS: CHLORIDE 94 mmol/L (98-107); POTASSIUM 3.7 mmol/L (3.5-5.1); SODIUM 130 mmol/L (136-145)
[2024-01-17 19:25] LABS: ANION GAP 13 mmol/L (4-13); BLOOD UREA NITROGEN 17.2 mg/dL (7-18); CO2 23 mmol/L (21-32)
[2024-01-17 19:28] LABS: CREATININE 1.5 mg/dL (0.55-1.3)
[2024-01-17 19:30] LABS: CALCIUM 7.8 mg/dL (8.5-10.1); GLUCOSE,RANDOM 614 mg/dL (74-106)
[2024-01-17] MEDS ORDERED: INSULIN (NOVOLOG) ASPART 100 UNITS/ML 10ML VIAL ONE (20:12)
[2024-01-17] MEDS: INSULIN (NOVOLOG) ASPART 100 UNITS/ML 10ML VIAL SQ ONE (20:36)
[2024-01-17] MEDS ORDERED: AZITHROMYCIN IVPB 500 MG/250 ML BAG IVPB ONE (21:08)
[2024-01-17] MEDS: AZITHROMYCIN IVPB 500 MG in DEXTROSE 5%-WATER - 250 ML IVPB ONE (21:19)
[2024-01-17 21:26] LABS: POTASSIUM 4.5 mmol/L (3.5-5.1)
[2024-01-17 21:28] LABS: BLOOD UREA NITROGEN 19.2 mg/dL (7-18)
[2024-01-17 21:32] LABS: CREATININE 1.5 mg/dL (0.55-1.3)
[2024-01-17 21:39] LABS: CALCIUM 9.2 mg/dL (8.5-10.1)
[2024-01-17] MEDS ORDERED: ONDANSETRON 4 MG/2 ML VIAL ONE (21:56)
[2024-01-17] MEDS ORDERED: TAMSULOSIN HCL 0.4 MG CAP ONE (21:56)
[2024-01-17] MEDS: ONDANSETRON 4 MG/2 ML VIAL IVPUSH ONE (22:20)
[2024-01-17] MEDS: TAMSULOSIN HCL 0.4 MG CAP PO ONE (22:20)
[2024-01-18] MEDS ORDERED: ACETAMINOPHEN INJECTION 100 ML IVPB ONE ×2 (00:41→08:29)
[2024-01-18] MEDS: ACETAMINOPHEN 1000 MG/100 ML BAG IVPB PRN (01:19)
[2024-01-18] MEDS: SODIUM CHLORIDE 1,000 ML IV SCH ×2 (02:11→11:47)
[2024-01-18] MEDS: MAGNESIUM SULF 50% (8.12 MEQ/2 ML-1 GM VIAL) IVPB ONE (02:12)
[2024-01-18 03:34] LABS: INR 1.74 (0.83-1.09); PROTHROMBIN TIME (PATIENT) 19.3 SEC (9.7-13.0)
[2024-01-18 03:53] VITALS: BMI 25.7
[2024-01-18] MEDS ORDERED: PROPOFOL 20 ML ONE (07:12)
[2024-01-18] MEDS ORDERED: FENTANYL CITRATE/PF 50 MCG/ML VIAL ONE ×3 (07:12→08:52)
[2024-01-18 07:24] LABS: BASO % 0.2 % (0-2.0); EOS % 0.2 % (0-4.5); HEMATOCRIT 39.1 % (35.4-49); HEMOGLOBIN 12.9 GM/dL (11.7-16.9); LYMPH % 2.9 % (8-40); MCH 30.1 pg (25.7-33.7); MCHC 33.1 g/dl (32.0-35.9); MEAN CELL VOLUME 90.9 fl (80-96); MEAN PLT VOLUME 8.4 fl (7.5-11.1); NEUT % 89.7 % (42.8-82.8); PLATELET COUNT 116 10^3/uL (134-434); RDW 15.7 % (11.9-15.9); WHITE BLOOD COUNT 14.1 K/mm3 (4.0-10.0)
[2024-01-18] MEDS: ceFAZolin SODIUM 1 GM VIAL IVPB ONE (07:25)
[2024-01-18 07:39] LABS: POTASSIUM 4.5 mmol/L (3.5-5.1)
[2024-01-18] MEDS: IOHEXOL 300 MG/ML INFUS..BTL IJ ONE (07:40)
[2024-01-18 07:41] LABS: CALCIUM 8.8 mg/dL (8.5-10.1)
[2024-01-18 07:42] LABS: ALBUMIN 2.6 g/dl (3.4-5.0); BLOOD UREA NITROGEN 18.9 mg/dL (7-18); MAGNESIUM 2.4 mg/dL (1.8-2.4)
[2024-01-18 07:45] LABS: CREATININE 1.6 mg/dL (0.55-1.3); PHOSPHOROUS 2.5 mg/dL (2.5-4.9)
[2024-01-18 07:46] LABS: TOT PROT 5.5 g/dl (6.4-8.2)
[2024-01-18] MEDS ORDERED: ONDANSETRON 4 MG/2 ML VIAL IVPUSH PRN (07:50)
[2024-01-18] MEDS: LACTATED RINGERS SOLUTION 1,000 ML IV SCH (08:15)
[2024-01-18 08:59] LABS: ANISOCYTOSIS 0; MACROCYTOSIS 0
[2024-01-18] MEDS ORDERED: cefTRIAXone SODIUM 1 GM VIAL ONE (09:41)
[2024-01-18] MEDS: AMANTADINE HCL 100 MG TABLET PO SCH (09:45)
[2024-01-18] MEDS: CEFTRIAXONE 1 GM in DEXTROSE 5%-WATER - 50 ML IVPB SCH (10:00)
[2024-01-18] MEDS: TAMSULOSIN HCL 0.4 MG CAP PO SCH (12:34)
[2024-01-18] MEDS: DOCUSATE SODIUM 100 MG CAPSULE (FP) PO SCH (12:35)
[2024-01-18] MEDS: PARoxetine HCL 10 MG TABLET PO SCH (12:36)
[2024-01-18] MEDS: FINASTERIDE 5 MG TABLET (FP) PO SCH (12:36)
[2024-01-18] MEDS: PANTOPRAZOLE 40 MG TABLET PO SCH (12:37)
[2024-01-18] MEDS: AZITHROMYCIN IVPB 250 MG in DEXTROSE 5%-WATER - 250 ML IVPB SCH (13:21)
[2024-01-18] MEDS ORDERED: QUEtiapine FUMARATE 25 MG TABLET ONE (20:40)
[2024-01-18] MEDS: QUEtiapine FUMARATE 50 MG TABLET PO SCH (21:31)
[2024-01-18] MEDS: DONEPEZIL HCL 10 MG TABLET (FP) PO SCH (21:31)
[2024-01-19 09:37] LABS: BASO % 0.1 % (0-2.0); EOS % 0.8 % (0-4.5); HEMATOCRIT 37.7 % (35.4-49); HEMOGLOBIN 12.4 GM/dL (11.7-16.9); LYMPH % 3.8 % (8-40); MCH 30.6 pg (25.7-33.7); MEAN CELL VOLUME 92.7 fl (80-96); MEAN PLT VOLUME 8.7 fl (7.5-11.1); MONO % 4.9 % (3.8-10.2); NEUT % 90.4 % (42.8-82.8); PLATELET COUNT 109 10^3/uL (134-434); RBC 4.06 M/mm3 (4.00-5.60); WHITE BLOOD COUNT 9.6 K/mm3 (4.0-10.0)
[2024-01-19 09:50] LABS: POTASSIUM 4.2 mmol/L (3.5-5.1)
[2024-01-19 09:57] LABS: CALCIUM 8.7 mg/dL (8.5-10.1)
[2024-01-19 09:58] LABS: ALBUMIN 2.5 g/dl (3.4-5.0); BLOOD UREA NITROGEN 24.8 mg/dL (7-18); MAGNESIUM 2.2 mg/dL (1.8-2.4)
[2024-01-19 10:00] LABS: CREATININE 1.3 mg/dL (0.55-1.3); PHOSPHOROUS 2.2 mg/dL (2.5-4.9)
[2024-01-19 10:01] LABS: BILIRUBIN,TOTAL 0.6 mg/dL (0.2-1); TOT PROT 5.8 g/dl (6.4-8.2)
[2024-01-19] MEDS ORDERED: SODIUM PHOSPHATE - 0 MM in SODIUM CHLORIDE 250 ML IVPB ONE (10:35)
[2024-01-19] MEDS: SODIUM PHOSPHATE - 15 MM in SODIUM CHLORIDE 250 ML IVPB ONE (13:42)
[2024-01-19] MEDS ORDERED: QUEtiapine FUMARATE 25 MG TABLET ONE (20:50)
[2024-01-20 07:53] LABS: BASO % 0.1 % (0-2.0); EOS % 0.2 % (0-4.5); MCH 31.2 pg (25.7-33.7); MCHC 34.3 g/dl (32.0-35.9); MEAN PLT VOLUME 8.6 fl (7.5-11.1); NEUT % 84.7 % (42.8-82.8); PLATELET COUNT 111 10^3/uL (134-434); RBC 3.85 M/mm3 (4.00-5.60); RDW 16.5 % (11.9-15.9); WHITE BLOOD COUNT 8.5 K/mm3 (4.0-10.0)
[2024-01-20 08:06] LABS: POTASSIUM 3.9 mmol/L (3.5-5.1)
[2024-01-20 08:11] LABS: BLOOD UREA NITROGEN 23.8 mg/dL (7-18); CALCIUM 8.4 mg/dL (8.5-10.1)
[2024-01-20 08:12] LABS: MAGNESIUM 1.9 mg/dL (1.8-2.4)
[2024-01-20 08:14] LABS: PHOSPHOROUS 2.4 mg/dL (2.5-4.9)
[2024-01-20] MEDS: ACETAMINOPHEN 325 MG TABLET (FP) PO PRN (10:36)
[2024-01-20] MEDS: traMADol HCL 50 MG TABLET PO PRN (12:39)
[2024-01-20] MEDS ORDERED: QUEtiapine FUMARATE 25 MG TABLET ONE (21:01)
[2024-01-20] MEDS: CEFUROXIME AXETIL 500 MG TABLET PO SCH (21:28)
[2024-01-21] MEDS ORDERED: MELATONIN 5 MG TABLETS PO PRN (11:00)
[2024-01-21] MEDS: ENOXAPARIN NA (PORCINE) 40 MG/0.4 ML DISP.SYRIN SQ SCH (12:19)
[2024-01-21] MEDS: AZITHROMYCIN 250 MG TABLET PO ONE (12:20)
[2024-01-21] MEDS ORDERED: QUEtiapine FUMARATE 25 MG TABLET ONE (21:52)
[2024-01-21] MEDS: POLYETHYLENE GLYCOL (HEALTHYLAX) 3350 17 GM PACKET PO SCH (22:15)
[2024-01-21] MEDS: clonazePAM 0.5 MG TABLET PO SCH (22:16)
[2024-01-22] MEDS: NAPH,MB-DB/K PH,MBDB POWDER PACKET PO ONE (14:57)
[2024-01-23 10:25] LABS: POTASSIUM 3.6 mmol/L (3.5-5.1)
[2024-01-23 10:32] LABS: BLOOD UREA NITROGEN 15.7 mg/dL (7-18)
[2024-01-23 10:33] LABS: ALBUMIN 2.6 g/dl (3.4-5.0); MAGNESIUM 1.7 mg/dL (1.8-2.4)
[2024-01-23 10:35] LABS: PHOSPHOROUS 2.9 mg/dL (2.5-4.9)
[2024-01-23 10:37] LABS: BILIRUBIN,TOTAL 0.7 mg/dL (0.2-1); TOT PROT 5.8 g/dl (6.4-8.2)
[2024-01-23] MEDS: LIDOCAINE 5% TOPICAL PATCH TP SCH (13:35)
[2024-01-23] MEDS: MAGNESIUM 2GM/50ML STERILE WATER IVPB IVPB ONE (13:35)
[2024-01-23] MEDS: LIDOCAINE PATCH REMOVAL MC SCH (21:23)
[2024-01-24] MEDS ORDERED: QUEtiapine FUMARATE 25 MG TABLET ONE (20:46)
[2024-01-25 09:19] LABS: ALBUMIN 2.6 g/dl (3.4-5.0); CALCIUM 8.7 mg/dL (8.5-10.1)
[2024-01-25 09:20] LABS: BLOOD UREA NITROGEN 15.7 mg/dL (7-18)
[2024-01-25 09:23] LABS: PHOSPHOROUS 2.8 mg/dL (2.5-4.9)
[2024-01-25 09:24] LABS: BILIRUBIN,TOTAL 0.7 mg/dL (0.2-1); HEMATOCRIT 40.4 % (35.4-49); HEMOGLOBIN 13.7 GM/dL (11.7-16.9); MCH 30.8 pg (25.7-33.7); MEAN CELL VOLUME 90.6 fl (80-96); MEAN PLT VOLUME 8.5 fl (7.5-11.1); PLATELET COUNT 225 10^3/uL (134-434); RBC 4.46 M/mm3 (4.00-5.60); RDW 16.4 % (11.9-15.9); TOT PROT 5.8 g/dl (6.4-8.2); WHITE BLOOD COUNT 7.4 K/mm3 (4.0-10.0)
[2024-01-25 10:49] LABS: ANISOCYTOSIS 0; HELMET CELLS 0; HOWELL-JOLLY BODIES 0; MACROCYTOSIS 0; OVALOCYTE 0; ROULEAU 0; SICKELED CELLS 0; TARGET CELLS 0; TEAR DROP CELLS 0; TOXIC GRANULATION 0
[2024-01-25] MEDS ORDERED: QUEtiapine FUMARATE 25 MG TABLET ONE (21:15)
[2024-01-26] MEDS ORDERED: QUEtiapine FUMARATE 25 MG TABLET ONE (21:17)
[2024-01-26 23:09] VITALS: RESP 18
[2024-01-27] MEDS ORDERED: QUEtiapine FUMARATE 25 MG TABLET ONE (21:21)
[2024-01-27] MEDS: LIDOCAINE HCL 5% TOP OINTMENT 50 GM TUBE TP ONE (22:06)
[2024-01-28 13:31] VITALS: BP 130/75; PULSE 87; TEMP 98.1
== END 2024-01-28 14:04 | DRG 659 ==
LOC: JER 16:25 → JERBED 20:56 → J5S 01-18 01:34
PROVIDERS: ADMIT Internal Medicine; ATTEND Internal Medicine
PROC: 0T788DZ Dilation of Bilateral Ureters with Intraluminal Device, Via Natural or Artificial Opening Endoscopic (ICD-10-PCS; principal; 2024-01-18 07:00)
DX: N13.6 Pyonephrosis (principal); J18.9 Pneumonia, unspecified organism; N17.9 Acute kidney failure, unspecified; G20.A1 Parkinson's disease without dyskinesia, without mention of fluctuations; E78.5 Hyperlipidemia, unspecified; E83.39 Other disorders of phosphorus metabolism; E86.0 Dehydration; E83.42 Hypomagnesemia; F43.10 Post-traumatic stress disorder, unspecified; F41.8 Other specified anxiety disorders; B96.20 Unspecified Escherichia coli [E. coli] as the cause of diseases classified elsewhere; F17.210 Nicotine dependence, cigarettes, uncomplicated; F14.10 Cocaine abuse, uncomplicated; N18.9 Chronic kidney disease, unspecified
CPT/HCPCS: 36415; 74176-TC; 76000-TC-FY; 76775-TC; 80048; 80053; 81003; 82962; 83605; 83735; 84100; 85025; 85610; 86850; 86900; 86901; 87040; 87086; 87186; 93005; 93010; 94760; 97116-GP; 97161-GP; 99285-25; C2617; J0131

== ENCOUNTER 2024-02-07 11:34 | Inpatient (IN) | payer OTHER ==
[2024-02-07] MEDS ORDERED: ACETAMINOPHEN INJECTION 100 ML IVPB ONE (13:01)
[2024-02-07 13:26] LABS: BASO % 1.2 % (0-2.0); EOS % 6.8 % (0-4.5); HEMATOCRIT 39.1 % (35.4-49); HEMOGLOBIN 13.2 GM/dL (11.7-16.9); LYMPH % 20.6 % (8-40); MCH 30.3 pg (25.7-33.7); MCHC 33.7 g/dl (32.0-35.9); MEAN CELL VOLUME 89.8 fl (80-96); MONO % 9.2 % (3.8-10.2); NEUT % 62.2 % (42.8-82.8); PLATELET COUNT 232 10^3/uL (134-434); RBC 4.35 M/mm3 (4.00-5.60); RDW 15.6 % (11.9-15.9); WHITE BLOOD COUNT 5.7 K/mm3 (4.0-10.0)
[2024-02-07 13:29] LABS: EPI CELLS >36 /uL (0-25.1); HYALINE CASTS 15 /uL (0-3.1); PH,URINE 6.5 (5.0-8.0); URINE APPEARANCE TURBID; URINE BACTERIA >9,000 /uL (0-1359); URINE BILIRUBIN NEGATIVE (NEGATIVE); URINE COLOR ORANGE; URINE GLUCOSE (UA) NEGATIVE (NEGATIVE); URINE KETONE NEGATIVE (NEGATIVE); URINE LEUK ESTERASE 3+ (NEGATIVE); URINE NITRITE NEGATIVE (NEGATIVE); URINE PROTEIN 3+ (NEGATIVE); URINE WBC 22116 /uL (0-25.8)
[2024-02-07] MEDS: ACETAMINOPHEN 1000 MG/100 ML BAG IVPB ONE ×2 (13:29→22:31)
[2024-02-07] MEDS: SODIUM CHLORIDE 1,000 ML IV STA (13:29)
[2024-02-07 13:55] LABS: URINE RBC 4451.2 /uL (0-23.9); YEAST NEGATIVE (NEGATIVE)
[2024-02-07 13:57] LABS: CALCIUM 9.3 mg/dL (8.5-10.1)
[2024-02-07 13:58] LABS: ALBUMIN 2.9 g/dl (3.4-5.0); BLOOD UREA NITROGEN 16.2 mg/dL (7-18)
[2024-02-07 14:02] LABS: BILIRUBIN,TOTAL 0.6 mg/dL (0.2-1); TOT PROT 6.4 g/dl (6.4-8.2)
[2024-02-07 14:12] LABS: CREATININE 1.1 mg/dL (0.55-1.3)
[2024-02-07] MEDS ORDERED: CEFTRIAXONE 1 GM/50 ML BAG ONE (15:48)
[2024-02-07] MEDS: CEFTRIAXONE 1,000 MG in DEXTROSE 5%-WATER - 50 ML IVPB ONE (16:00)
[2024-02-07 20:24] VITALS: BMI 25.4
[2024-02-07] MEDS ORDERED: QUEtiapine FUMARATE 25 MG TABLET ONE (21:22)
[2024-02-07] MEDS: QUEtiapine FUMARATE 50 MG TABLET PO SCH (21:33)
[2024-02-07] MEDS: TAMSULOSIN HCL 0.4 MG CAP PO SCH (21:33)
[2024-02-07] MEDS: MELATONIN 5 MG TABLETS PO SCH (21:33)
[2024-02-07] MEDS: AMANTADINE HCL 100 MG TABLET PO SCH (21:33)
[2024-02-07] MEDS: DONEPEZIL HCL 10 MG TABLET (FP) PO SCH (21:34)
[2024-02-07] MEDS: DOCUSATE SODIUM 100 MG CAPSULE (FP) PO SCH (21:34)
[2024-02-08 09:31] LABS: BASO % 0.7 % (0-2.0); EOS % 0.8 % (0-4.5); HEMATOCRIT 38.1 % (35.4-49); HEMOGLOBIN 12.9 GM/dL (11.7-16.9); LYMPH % 10.8 % (8-40); MCH 30.1 pg (25.7-33.7); MCHC 33.8 g/dl (32.0-35.9); MEAN PLT VOLUME 7.8 fl (7.5-11.1); MONO % 14.8 % (3.8-10.2); NEUT % 72.9 % (42.8-82.8); PLATELET COUNT 199 10^3/uL (134-434); RBC 4.28 M/mm3 (4.00-5.60); RDW 15.8 % (11.9-15.9); WHITE BLOOD COUNT 5.8 K/mm3 (4.0-10.0)
[2024-02-08 09:57] LABS: POTASSIUM 3.7 mmol/L (3.5-5.1)
[2024-02-08 10:09] LABS: ALBUMIN 2.6 g/dl (3.4-5.0)
[2024-02-08 10:11] LABS: BILIRUBIN,TOTAL 0.6 mg/dL (0.2-1); CREATININE 1.2 mg/dL (0.55-1.3)
[2024-02-08 10:12] LABS: BLOOD UREA NITROGEN 11.3 mg/dL (7-18); CALCIUM 8.6 mg/dL (8.5-10.1)
[2024-02-08 10:13] LABS: MAGNESIUM 1.6 mg/dL (1.8-2.4)
[2024-02-08] MEDS: CEFTRIAXONE 1 GM in DEXTROSE 5%-WATER - 50 ML IVPB SCH (10:35)
[2024-02-08] MEDS: ENOXAPARIN NA (PORCINE) 40 MG/0.4 ML DISP.SYRIN SQ SCH (10:35)
[2024-02-08] MEDS: PARoxetine HCL 10 MG TABLET PO SCH (10:36)
[2024-02-08] MEDS: PANTOPRAZOLE 40 MG TABLET PO SCH (10:36)
[2024-02-08] MEDS: FINASTERIDE 5 MG TABLET (FP) PO SCH (10:36)
[2024-02-08] MEDS: ARTIFICIAL TEARS OPHTHALMIC DROPS OU SCH (10:36)
[2024-02-08] MEDS: MAGNESIUM SULF 50% (8.12 MEQ/2 ML-1 GM VIAL) IVPB ONE (11:22)
[2024-02-08] MEDS: ACETAMINOPHEN 325 MG TABLET (FP) PO PRN (13:38)
[2024-02-08] MEDS ORDERED: QUEtiapine FUMARATE 25 MG TABLET ONE (21:03)
[2024-02-09] MEDS: traMADol HCL 50 MG TABLET PO PRN (16:58)
[2024-02-09] MEDS ORDERED: QUEtiapine FUMARATE 25 MG TABLET ONE (20:24)
[2024-02-10] MEDS: ACETAMINOPHEN 500 MG TABLET (FP) PO PRN (16:27)
[2024-02-11 08:17] LABS: BASO % 0.5 % (0-2.0); EOS % 11.1 % (0-4.5); HEMATOCRIT 38.7 % (35.4-49); LYMPH % 28.9 % (8-40); MCHC 33.6 g/dl (32.0-35.9); MEAN CELL VOLUME 89.1 fl (80-96); MEAN PLT VOLUME 7.7 fl (7.5-11.1); MONO % 12.8 % (3.8-10.2); NEUT % 46.7 % (42.8-82.8); PLATELET COUNT 213 10^3/uL (134-434); RBC 4.34 M/mm3 (4.00-5.60)
[2024-02-11 08:29] LABS: POTASSIUM 3.8 mmol/L (3.5-5.1)
[2024-02-11 08:31] LABS: CALCIUM 9.2 mg/dL (8.5-10.1)
[2024-02-11 08:32] LABS: ALBUMIN 2.8 g/dl (3.4-5.0); BLOOD UREA NITROGEN 13.7 mg/dL (7-18)
[2024-02-11 08:35] LABS: CREATININE 1.2 mg/dL (0.55-1.3)
[2024-02-11 08:36] LABS: BILIRUBIN,TOTAL 0.4 mg/dL (0.2-1); TOT PROT 6.1 g/dl (6.4-8.2)
[2024-02-11] MEDS: SODIUM CHLORIDE 0.45% 1,000 ML IV SCH (18:14)
[2024-02-12] MEDS: BENZTROPINE MESYLATE 0.5 MG TABLET (FP) PO SCH (10:00)
[2024-02-12] MEDS ORDERED: QUEtiapine FUMARATE 25 MG TABLET ONE (21:42)
[2024-02-13 13:19] LABS: INR 1.13 (0.83-1.09); PROTHROMBIN TIME (PATIENT) 12.7 SEC (9.7-13.0)
[2024-02-13] MEDS ORDERED: MIDAZOLAM HCL 2 MG/2 ML SINGLE DOSE VIAL ONE (14:27)
[2024-02-13] MEDS ORDERED: FENTANYL CITRATE/PF 50 MCG/ML VIAL ONE ×3 (14:27→19:39)
[2024-02-13] MEDS ORDERED: PROPOFOL 20 ML ONE (17:24)
[2024-02-13] MEDS: ceFAZolin SODIUM 1 GM VIAL IVPB ONE (18:36)
[2024-02-13] MEDS ORDERED: ceFAZolin SODIUM 1 GM VIAL ONE (18:37)
[2024-02-13] MEDS ORDERED: ONDANSETRON 4 MG/2 ML VIAL ONE (18:57)
[2024-02-13] MEDS ORDERED: DEXAMETHASONE SOD PHOSPHATE 4 MG/1 ML VIAL ONE (18:57)
[2024-02-13] MEDS: LACTATED RINGERS SOLUTION 1,000 ML IV SCH (19:05)
[2024-02-13] MEDS ORDERED: ONDANSETRON 4 MG/2 ML VIAL IVPUSH PRN (19:12)
[2024-02-13] MEDS: SODIUM CHLORIDE 0.45% 1,000 ML IV SCH (20:20)
[2024-02-13] MEDS ORDERED: QUEtiapine FUMARATE 25 MG TABLET ONE (21:26)
[2024-02-13] MEDS: TAMSULOSIN HCL 0.4 MG CAP PO SCH (21:52)
[2024-02-13] MEDS: DONEPEZIL HCL 10 MG TABLET (FP) PO SCH (21:52)
[2024-02-13] MEDS: MELATONIN 5 MG TABLETS PO SCH (21:52)
[2024-02-13] MEDS: DOCUSATE SODIUM 100 MG CAPSULE (FP) PO SCH (21:52)
[2024-02-13] MEDS: QUEtiapine FUMARATE 50 MG TABLET PO SCH (21:53)
[2024-02-13] MEDS: AMANTADINE HCL 100 MG TABLET PO SCH (21:53)
[2024-02-14] MEDS: PANTOPRAZOLE 40 MG TABLET PO SCH (09:38)
[2024-02-14] MEDS: CEFTRIAXONE 1 GM in DEXTROSE 5%-WATER - 50 ML IVPB SCH (09:38)
[2024-02-14] MEDS: ENOXAPARIN NA (PORCINE) 40 MG/0.4 ML DISP.SYRIN SQ SCH (09:38)
[2024-02-14] MEDS: FINASTERIDE 5 MG TABLET (FP) PO SCH (09:38)
[2024-02-14] MEDS: PARoxetine HCL 10 MG TABLET PO SCH (09:38)
[2024-02-14] MEDS: ACETAMINOPHEN 500 MG TABLET (FP) PO PRN (09:45)
[2024-02-14] MEDS: BENZTROPINE MESYLATE 0.5 MG TABLET (FP) PO SCH (10:05)
[2024-02-14] MEDS: ARTIFICIAL TEARS OPHTHALMIC DROPS OU SCH (10:07)
[2024-02-14] MEDS: LIDOCAINE 5% TOPICAL PATCH TP SCH (12:17)
[2024-02-14] MEDS: ACETAMINOPHEN 325 MG TABLET (FP) PO PRN (16:21)
[2024-02-14] MEDS ORDERED: QUEtiapine FUMARATE 25 MG TABLET ONE (21:06)
[2024-02-15] MEDS: LIDOCAINE PATCH REMOVAL MC SCH (01:02)
[2024-02-16 07:24] VITALS: RESP 18
[2024-02-16] MEDS ORDERED: QUEtiapine FUMARATE 25 MG TABLET ONE (21:03)
[2024-02-17] MEDS ORDERED: QUEtiapine FUMARATE 25 MG TABLET ONE (21:01)
[2024-02-18 10:27] LABS: POTASSIUM 3.9 mmol/L (3.5-5.1)
[2024-02-18 10:32] LABS: CALCIUM 9.8 mg/dL (8.5-10.1)
[2024-02-18 10:35] LABS: ALBUMIN 2.9 g/dl (3.4-5.0); BLOOD UREA NITROGEN 11.5 mg/dL (7-18)
[2024-02-18 10:39] LABS: BILIRUBIN,TOTAL 0.3 mg/dL (0.2-1); TOT PROT 6.3 g/dl (6.4-8.2)
[2024-02-18] MEDS ORDERED: QUEtiapine FUMARATE 25 MG TABLET ONE (21:08)
[2024-02-19] MEDS ORDERED: QUEtiapine FUMARATE 25 MG TABLET ONE (20:55)
[2024-02-20 09:57] VITALS: BP 114/60; PULSE 73; TEMP 98.4
== END 2024-02-20 13:16 | disposition home or self-care (01) | DRG 659 ==
LOC: JER 11:34 → JERBED 15:25 → J5S 18:42
PROVIDERS: ADMIT Internal Medicine; ATTEND Internal Medicine
PROC: 0T9B80Z Drainage of Bladder with Drainage Device, Via Natural or Artificial Opening Endoscopic (ICD-10-PCS; 2024-02-13)
PROC: 0TC78ZZ Extirpation of Matter from Left Ureter, Via Natural or Artificial Opening Endoscopic (ICD-10-PCS; principal; 2024-02-13 14:30)
PROC: 0T778DZ Dilation of Left Ureter with Intraluminal Device, Via Natural or Artificial Opening Endoscopic (ICD-10-PCS; 2024-02-13 14:30)
PROC: 0TP98DZ Removal of Intraluminal Device from Ureter, Via Natural or Artificial Opening Endoscopic (ICD-10-PCS; 2024-02-13 14:30)
PROC: BT1FZZZ Fluoroscopy of Left Kidney, Ureter and Bladder (ICD-10-PCS; 2024-02-13 14:30)
DX: T83.511A Infection and inflammatory reaction due to indwelling urethral catheter, initial encounter (principal); R53.2 Functional quadriplegia; N17.9 Acute kidney failure, unspecified; N20.1 Calculus of ureter; I10 Essential (primary) hypertension; E78.5 Hyperlipidemia, unspecified; F43.10 Post-traumatic stress disorder, unspecified; R91.1 Solitary pulmonary nodule; N39.0 Urinary tract infection, site not specified; B96.20 Unspecified Escherichia coli [E. coli] as the cause of diseases classified elsewhere; F25.9 Schizoaffective disorder, unspecified; G31.83 Neurocognitive disorder with Lewy bodies; R33.9 Retention of urine, unspecified; R68.89 Other general symptoms and signs; F02.80 Dementia in other diseases classified elsewhere, unspecified severity, without behavioral disturbance, psychotic disturbance, mood disturbance, and anxiety; N40.0 Benign prostatic hyperplasia without lower urinary tract symptoms; Y84.6 Urinary catheterization as the cause of abnormal reaction of the patient, or of later complication, without mention of misadventure at the time of the procedure; Y92.89 Other specified places as the place of occurrence of the external cause
CPT/HCPCS: 36415; 71045-TC-FY; 71250-TC; 74176-TC; 76000-TC-FY; 80053; 81003; 82962; 83735; 84100; 84439; 84443; 85025; 85610; 85730; 87040; 87086; 87186; 93005; 93010; 94760; 97116-GP; 97161-GP; 99285-25; C1747; C1758; C2617; J0131